=== PATIENT | male | born 1970 | race Caucasian/White ===

== ENCOUNTER 2020-06-20 14:28 | Inpatient (IN) | payer BC, SELFPAY ==
[2020-06-20] VITALS (15 sets, daily range): BP systolic 100–160; BP diastolic 66–101; PULSE 78–105; RESP 14–22; TEMP 36.3–36.8; O2SAT 95–99; BMI 32.8; BMI 33.2
--- NOTE | ~2020-06-20 | XR_ITS ---
EXAMINATION: XR chest ET placement DATE: 06/28/2020 21:43 INDICATION: Intubation. TECHNIQUE: A single frontal view of the chest was obtained. COMPARISON: Chest single view at 5:04 AM, chest CT 06/24/2020 FINDINGS: The patient is rotated to his right. There is mild atelectasis in right perihilar region. N o pleural effusion or pneumothorax. The heart size is normal. The endotracheal tube tip is 6.7 cm abo ve the addie. The nasogastric tube tip is beyond the inferior margin of the radiograph, but at least to the stomach. There are surgical clips in the neck. IMPRESSION: 1. Mild atelectasis in right perihilar region. Reviewed, dictated and finalized at location A.
--- NOTE | ~2020-06-20 | XR_ITS ---
EXAMINATION: XR chest 1V portable DATE: 07/01/2020 05:32 INDICATION: Acute respiratory failure TECHNIQUE: frontal view of the chest was obtained. COMPARISON: Chest radiograph dated 06/30/2020 FINDINGS: Endotracheal tube tip 6.8 cm above the addie. Nasogastric tube extends below the left hemidiaphragm with distal tip collimated off the study. No significant interval change in patchy bilateral airspace opacities in the perihilar and lower lung zones. No pleural effusion or pneumothorax. The cardiomediastinal silhouette is normal. IMPRESSION: 1. Persistent bilateral perihilar and lower lung zone opacities which could represent pneumonia, pulm onary edema, atelectasis or some combination thereof. Reviewed, dictated and finalized at location A. IMPRESSION: 1. Persistent bilateral perihilar and lower lung zone opacities which could rep resent pneumonia, pulmonary edema, atelectasis or some combination thereof.
--- NOTE | ~2020-06-20 | CT_ITS ---
EXAMINATION: CT soft tissue neck chest wo EXAM DATE: 06/24/2020 08:31 INDICATION: Airway obstruction . Seizure. Intubated. Respiratory failure. TECHNIQUE: Spiral CT of the neck and chest was performed without contrast. Axial, coronal and sagit michelle images of the neck were reviewed. Axial, coronal and sagittal images of the chest were reviewed. Coronal maximum intensity pixel images of chest reviewed. The dose-length product (DLP) for this e xamination was 1161.73 mGy-cm. The exposure was tailored according to patient size (auto mA exposure control), and iterative reconstruction (ASIR) was used as additional dose reduction technique. Ther e is no prior study for comparison. FINDINGS: Endotracheal tube and nasogastric tube are both in position. NECK: The thyroid gland is unremarkable. The submandibular and parotid glands are symmetric. Ther e is no cervical lymphadenopathy. There are no masses identified. Mild swelling of the right tonsil without fluid density. The airway is otherwise unremarkable. Parapharyngeal and pre-glottic fat pl anes are preserved. Mild bilateral carotid bulb arterial sclerosis. The orbits are unremarkable. Mild to moderate ethmoid and sphenoid mucoperiosteal thickening. Mild bilateral maxillary sinus muco periosteal thickening. Mastoid air cells are well aerated. There is cervical spondylosis. CHEST: There is multifocal right-sided subsegmental atelectasis, and left lower lobe subsegmental ate lectasis. There are trace bilateral pleural effusions. Tracheobronchial tree is patent. There is no mediastinal, hilar or axillary lymphadenopathy. There is no pneumothorax. There is mild cardio megaly. There is moderate coronary arterial calcification, arterial sclerosis. Upper abdomen is unr emarkable. There is mild thoracic spondylosis without osteoblastic or osteolytic lesions identified . IMPRESSION: 1. Mild right tonsillar swelling. Otherwise unremarkable airway. Tubes in position. 2. Multifocal subsegmental right-sided and left basilar atelectasis. 3. Trace pleural effusions. Reviewed, dictated and finalized at location A. IMPRESSION: 1. Mild right tonsillar swelling. Otherwise unremarkable airway. Tubes in posi tion. 2. Multifocal subsegmental right-sided and left basilar atelectasis. 3. Trace pleural effusions.
--- NOTE | ~2020-06-20 | US_ITS ---
EXAMINATION: US venous doppler UE LT DATE: 07/06/2020 07:54 INDICATION: Left upper limb swelling. TECHNIQUE: Grayscale ultrasound images without and with compression and Doppler ultrasound images of the left upper extremity veins were obtained. COMPARISON: Ultrasound 07/30/2020 FINDINGS: The visualized portions of the left internal jugular vein, subclavian vein, axillary vein, brachial v eins, basilic vein, radial vein, and ulnar vein are patent. There is thrombus in left cephalic vein. IMPRESSION: 1. No deep venous thrombosis. 2. Thrombus in left cephalic vein, which is a superficial vein. Reviewed, dictated and finalized at location A.
--- NOTE | ~2020-06-20 | XR_ITS ---
XR abdomen NG/feed tube insert INDICATION: Evaluate G-tube position. TECHNIQUE: Limited KUB perform for evaluating NG tube . COMPARISON: No prior studies for comparison. FINDINGS: NG tube tip in the stomach. Visualized bowel gas pattern is unremarkable. IMPRESSION: 1: NG tube tip in the stomach. Reviewed, dictated and finalized at location A.
--- NOTE | ~2020-06-20 | XR_ITS ---
EXAMINATION: XR chest 1V portable INDICATION: Respiratory failure TECHNIQUE: Portable AP chest at 0515 hours COMPARISON: 11/26/2020 FINDINGS: The endotracheal tube ends approximately 8.3 cm above the addie. The nasogastric tube is f ollowed as far as the stomach. Its tip is beyond the inferior margin of the radiograph. There are sta ble airspace opacities of the mid and lower lung zones. No pleural effusion or pneumothorax is identi fied. The cardiomediastinal silhouette is stable. IMPRESSION: 1. Stable airspace opacities of the mid lower lung zones, consistent with atelectasis versus pneumoni a. 2. Endotracheal tube remains approximately 8.3 cm above the addie. Reviewed, dictated and finalized at location A. IMPRESSION: 1. Stable airspace opacities of the mid lower lung zones, consistent with atele ctasis versus pneumonia. 2. Endotracheal tube remains approximately 8.3 cm above the addie.
--- NOTE | ~2020-06-20 | US_ITS ---
US venous doppler [facility] DATE: 07/03/2020 13:56 INDICATION: Deep venous thrombosis TECHNIQUE: Real-time and color flow imaging and Doppler analysis of the veins of the upper extremitie s COMPARISON: None FINDINGS: Thrombus is identified within the right cephalic vein, with lack of compression of this ves ingrid. Otherwise there is normal flow in the bilateral internal jugular, subclavian, axillary, brachial, bas ilic veins, left cephalic vein and bilateral radial and ulnar veins. IMPRESSION: Deep venous thrombosis of right cephalic vein Reviewed, dictated and finalized at Location A. Reviewed, dictated and finalized at location A.
--- NOTE | ~2020-06-20 | XR_ITS ---
EXAMINATION: XR chest 1V portable DATE: 06/29/2020 06:11 INDICATION: Endotracheal tube placement. Ventilated. TECHNIQUE: frontal view of the chest was obtained. COMPARISON: Chest radiograph dated 06/28/2020 FINDINGS: Endotracheal tube tip 6.7 cm above the addie. Nasogastric tube with proximal side-port in the body o f the stomach and distal tip collimated off the study. Airspace opacities in the right lower lung zone. Bandlike atelectasis at the medial left lung base. N o pleural effusion or pneumothorax. The cardiomediastinal silhouette is normal. IMPRESSION: 1. Endotracheal tube tip 6.7 cm above the addie. Consider advancement by 4 cm. 2. Subtle patchy airspace opacities in the right lower lung zone which could represent atelectasis an d/or pneumonia. Reviewed, dictated and finalized at location A. IMPRESSION: 1. Endotracheal tube tip 6.7 cm above the addie. Consider advancement by 4 cm. 2. Subtle patchy airspace opacities in the right lower lung zone which could re present atelectasis and/or pneumonia.
--- NOTE | ~2020-06-20 | XR_ITS ---
XR chest 1V portable DATE: 07/03/2020 05:30 INDICATION: Acute respiratory failure TECHNIQUE: Portable AP chest on 07/03/2020 at 0516 hours COMPARISON: 07/02/2020 portable AP chest at 1156 hours FINDINGS: Left upper extremity PIC catheter tip overlies superior vena cava. Normal heart size. There are patchy infiltrates in the right mid and both lower lung zones, relatively stable since 2020. IMPRESSION: No significant change since 07/02/2020 Reviewed, dictated and finalized at location A.
--- NOTE | ~2020-06-20 | XR_ITS ---
XR chest 1V portable 06/23/2020 05:34 Indication: Respiratory distress Procedure: AP portable chest Comparison: 06/20/2020 Findings: Interval development of bilateral infiltrates predominantly affecting the right perihilar a nd left lower lung zones. Endotracheal tube tip 5.5 cm above the addie. No significant effusion. No pneumothorax identified. No acute osseous abnormality. Impression: 1: Interval development of bilateral infiltrates which may represent atelectasis and/or pneumonia. Reviewed, dictated and finalized at location A. Impression: 1: Interval development of bilateral infiltrates which may represent atelectasi s and/or pneumonia.
--- NOTE | ~2020-06-20 | XR_ITS ---
EXAMINATION: XR chest ET placement EXAM DATE: 06/30/2020 09:35 INDICATION: Endotracheal tube position. TECHNIQUE: Portable AP frontal chest x-ray was obtained. Comparison is made to prior examination from 06/29/2020. FINDINGS: Endotracheal tube tip is at the addie, could be safely retracted 2 cm. There is some prog ression in the bilateral patchy airspace disease which could be atelectasis or developing pneumonia. There are no sizable pleural effusions. There is no pneumothorax suspected. Cardiomediastinal myrtle houette is normal. The bones and soft tissues are unremarkable. IMPRESSION: 1. ET tube tip at addie, could be safely retracted 2 cm. 2. Mild progression in patchy bilateral perihilar pneumonia and/or atelectasis. I discussed tube position with [employer] architect Alejandrina Mooney MD who called. Reviewed, dictated and finalized at location A. IMPRESSION: 1. ET tube tip at addie, could be safely retracted 2 cm. 2. Mild progression in patchy bilateral perihilar pneumonia and/or atelectasis . I discussed tube position with [employer] architect Alejandrina Mooney MD who called.
--- NOTE | ~2020-06-20 | XR_ITS ---
EXAMINATION: XR chest ET placement EXAM DATE: 06/30/2020 09:50 INDICATION: Readjusted endotracheal tube. TECHNIQUE: Portable AP frontal chest x-ray was obtained. Comparison is made to prior examination from earlier same date. FINDINGS: Endotracheal tube tip is 4 centimeters above the addie. Feeding tube is in position. Again there are patchy bilateral perihilar opacities, partly atelectasis but suspect patient is devel oping pneumonia or edema as well. There are no sizable pleural effusions. There is no pneumothorax suspected. Cardiomediastinal silhouette is normal. The bones and soft tissues are unremarkable. ET tube has been repositioned, otherwise no significant interval change from earlier same date. IMPRESSION: 1. Line and tube(s) in position. 2. Scattered atelectasis and suspect developing superimposed pneumonia and/or edema. Reviewed, dictated and finalized at location A.
--- NOTE | ~2020-06-20 | XR_ITS ---
XR chest 1V portable 06/24/2020 05:47 Indication: Respiratory failure Procedure: AP portable chest Comparison: Comparison to multiple prior studies sequentially, with oldest reviewed study dated 06/10. Findings: Endotracheal tube tip 6.2 cm above the addie. NG tube in the stomach. Improving right bee hilar bandlike atelectasis. There are bilateral perihilar and bibasilar infiltrates. No significant p leural effusion. No pneumothorax. No acute osseous abnormality. Impression: 1: Persistent bilateral perihilar and basilar infiltrates which may represent edema or less likely pn eumonia. 2: Improving bandlike atelectasis right midlung zone. Reviewed, dictated and finalized at location A. Impression: 1: Persistent bilateral perihilar and basilar infiltrates which may represent e alban or less likely pneumonia. 2: Improving bandlike atelectasis right midlung zone.
--- NOTE | ~2020-06-20 | XR_ITS ---
EXAMINATION: XR chest 1V portable EXAM DATE: 06/29/2020 12:21 INDICATION: Endotracheal tube repositioned. Airway obstruction. Seizure. TECHNIQUE: Portable AP frontal chest x-ray was obtained. Comparison is made to prior examination from earlier same date. FINDINGS: Endotracheal tube tip is at T3 level, 6.5 centimeters above the addie. Both lungs being ae rated but could be safely advanced 2 cm. There is a nasogastric tube seen with tip collimated off the study, but below the left hemidiaphragm. Small amount of ill-defined bibasilar atelectasis or pneumo abby. There are no sizable pleural effusions. There is no pneumothorax suspected. Cardiomediastinal myrtle houette is normal. The bones and soft tissues are unremarkable. There is no significant interval ch alena compared to prior exam. IMPRESSION: 1. ET tube could be safely advanced 2 cm. 2. Small amount of bilateral atelectasis or pneumonia. Reviewed, dictated and finalized at location A.
--- NOTE | ~2020-06-20 | XR_ITS ---
EXAMINATION: XR chest PICC line EXAM DATE: 07/02/2020 11:54 INDICATION: PICC line insertion. TECHNIQUE: Portable AP frontal chest x-ray was obtained. Comparison is made to prior examination from 07/02/2020. FINDINGS: There is a left-sided PICC line with tip projecting over the cavoatrial junction. There is patchy bilateral acute airspace disease, appearance most consistent with pneumonia but edema and ate lectasis also possible. This is unchanged. No pneumothorax or sizable pleural effusion. Cardiomediast inal silhouette is normal. IMPRESSION: PICC line in position. Patchy bilateral perihilar acute airspace disease unchanged. Reviewed, dictated and finalized at location A. IMPRESSION: PICC line in position. Patchy bilateral perihilar acute airspace d isease unchanged.
--- NOTE | ~2020-06-20 | XR_ITS ---
XR chest 1V portable DATE: 06/25/2020 05:25 INDICATION: Respiratory failure TECHNIQUE: Portable AP chest on 06/25/2020 0512 hours COMPARISON: 06/24/2020 portable AP chest 06/24/2020 CT chest FINDINGS: ET tube 6.4 cm above addie; ideal range is 2-5 cm. NG tube in stomach. Surgical clips overlie the right cervical-thoracic area. Heart size is within normal range. Mild aortic unfolding. Persistent discoid atelectasis of the right mid and lower lung and mild infiltrate or atelectasis in the left lower lung, relatively stable since 06/24/2020.. IMPRESSION: ET tube 6.4 cm above addie; ideal range is 2-5 cm Stable bilateral infiltrate and/atelectasis in the right mid and both lower lungs Reviewed, dictated and finalized at location A. IMPRESSION: ET tube 6.4 cm above addie; ideal range is 2-5 cm Stable bilateral infiltrate and/atelectasis in the right mid and both lower shaye gs
--- NOTE | ~2020-06-20 | XR_ITS ---
EXAMINATION: XR abdomen NG/feed tube insert DATE: 06/30/2020 20:09 INDICATION: Orogastric tube placement. TECHNIQUE: A semiupright view of the abdomen was obtained. COMPARISON: Abdomen radiograph 06/30/2020 FINDINGS: The lower abdomen and right lateral aspect of the abdomen are excluded. The nasogastric tub e tip is in the stomach. IMPRESSION: 1. Nasogastric tube tip in the stomach. Reviewed, dictated and finalized at location A.
--- NOTE | ~2020-06-20 | XR_ITS ---
EXAMINATION: XR abdomen/kub 1V EXAM DATE: 06/30/2020 10:40 INDICATION: Constipation. Feeding tube. TECHNIQUE: Frontal projection(s) of the abdomen for interpretation. There is no prior study for amaris tirado. FINDINGS: Feeding tube is in position. Small to moderate amount of colonic gas. No small bowel dilat ion. Mild lumbar dextroscoliosis. There is no organomegaly. IMPRESSION: Feeding tube in position. Reviewed, dictated and finalized at location A. IMPRESSION: Feeding tube in position.
--- NOTE | ~2020-06-20 | XR_ITS ---
EXAMINATION: XR chest 1V portable DATE: 07/02/2020 05:35 INDICATION: Acute respiratory failure TECHNIQUE: frontal view of the chest was obtained. COMPARISON: Chest radiograph dated 06/30/2020 FINDINGS: No significant interval change in patchy airspace opacities in the right perihilar and infrahilar reg ions. Minimal residual opacities at the left lower lung zone. No pleural effusion or pneumothorax. Th e cardiomediastinal silhouette is normal. IMPRESSION: 1. Persistent opacities in the right perihilar and infrahilar regions to lesser degree left lung base which could represent pneumonia, pulmonary edema, atelectasis or some combination thereof. Reviewed, dictated and finalized at location A. IMPRESSION: 1. Persistent opacities in the right perihilar and infrahilar regions to lesser degree left lung base which could represent pneumonia, pulmonary edema, atelec tasis or some combination thereof.
--- NOTE | ~2020-06-20 | CT_ITS ---
EXAMINATION: CT brain wo con DATE: 06/20/2020 15:05 INDICATION: Seizure TECHNIQUE: Computed tomography (CT) of the head was performed without intravenous contrast. The mA wa s adjusted according to patient size. Iterative reconstruction technique was employed. Exam dose: 68 1.00 mGy-cm total exam DLP. COMPARISON: 09/07/2012 CT brain FINDINGS: No intracranial mass lesion or hemorrhage or cerebrovascular accident is evident. No midlin e shift or mass effect effect. Normal ventricular size. No subdural or epidural hematoma. There is greater than expected volume loss of the cerebral hemispheres and cerebellum for age. No fra cture or bone destruction of the cranial vault. There is patchy soft tissue opacification of ethmoid air cells bilaterally and some mucoperiosteal th ickening of the right sphenoid sinus. Minimal mucoperiosteal thickening left sphenoid and bilateral f rontal sinuses. The mastoid air cells are normally developed and aerated. IMPRESSION: Greater than expected cerebral and cerebellar volume loss for age No acute intracranial finding or significant change since 09/07/2014 Reviewed, dictated and finalized at [facility]. Reviewed, dictated and finalized at location A.
--- NOTE | ~2020-06-20 | XR_ITS ---
XR chest 1V portable DATE: 06/20/2020 15:12 INDICATION: Seizure TECHNIQUE: Portable AP chest on 06/20/2020 at 1508 hours COMPARISON: 06/10/2017 PA and lateral chest FINDINGS: Normal heart size. No hilar or mediastinal enlargement. No pulmonary infiltrate or consolidation, pleural effusion or pulmonary vascular congestion or pneumo thorax. IMPRESSION: No active cardiopulmonary disease Reviewed, dictated and finalized at location A.
--- NOTE | ~2020-06-20 | XR_ITS ---
EXAMINATION: XR chest 1V portable DATE: 06/28/2020 05:17 INDICATION: Respiratory failure TECHNIQUE: frontal view of the chest was obtained. COMPARISON: Chest radiograph dated 06/27/2020 FINDINGS: Endotracheal tube tip 5.2 cm above the addie. Nasogastric tube tip in proximal side port in the body of the stomach. A few surgical clips at the right base of the neck. Unchanged elevation of the right hemidiaphragm. Mild linear discoid atelectasis/scarring in the bilat eral lower lung zones. No pulmonary edema, pleural effusion or pneumothorax. The cardiomediastinal si lhouette is normal. IMPRESSION: 1. Mild bibasilar atelectasis versus less likely pneumonia. Reviewed, dictated and finalized at location A.
--- NOTE | ~2020-06-20 | XR_ITS ---
EXAMINATION: XR chest 1V portable INDICATION: Respiratory failure TECHNIQUE: Portable AP chest at 0508 hours COMPARISON: 06/25/2020 FINDINGS: The endotracheal tube ends approximately 7.2 cm above the addie. The nasogastric tube is f ollowed as far as the stomach. Its tip is beyond the inferior margin of the radiograph. Airspace opac ities of the right lung base persist but have improved. There are stable airspace opacities in the mi dlung zones and left lung base. There is no pleural effusion or pneumothorax. The cardiomediastinal s ilhouette is stable. IMPRESSION: 1. Airspace opacities of the mid and lower lung zones with improvement in the right lung base, consis tent with atelectasis versus pneumonia. Reviewed, dictated and finalized at location A. IMPRESSION: 1. Airspace opacities of the mid and lower lung zones with improvement in the r ight lung base, consistent with atelectasis versus pneumonia.
--- NOTE | 2020-06-20 14:51 | ECG_ITS ---
Measurements Intervals [place] Rate: 100 P: ID: 0 QRS: -57 QRSD: 149 T: 25 QT: 381 QTc: 493 Interpretive Statements SINUS TACHYCARDIA RIGHT BUNDLE BRANCH BLOCK LEFT ANTERIOR FASCICULAR BLOCK BASELINE ARTIFACT- I, II, III, AVR, AVL, AVF Electronically Signed On 06-20-2020 16:53:40 CDT by Rosalio Millan D.O.
[2020-06-20] MEDS: LORazepam INJ (*CRX) 2 MG/ML VIAL 1 MG IV PUSH ×3 (14:54→22:11)
--- NOTE | 2020-06-20 14:56 | ED.GENADULT ---
HPI - General Adult General Chief complaint: Seizure Stated complaint: sz Time Seen by Provider: 06/20/20 14:37 Source: patient, EMS and RN notes reviewed Mode of arrival: EMS Limitations: no limitations History of Present Illness HPI narrative: Patient is 50 years old white male was having a stressful phone conversation suddenly started making weird noises, stuttering, stiffening all over and shaking with foaming from the mouth lasted less than 1 minute. Patient back to his normal mental status in 2 minutes. Patient remembers the event and the details of it. Patient denies similar symptoms. The patient is reports too much stress lately. Patient denies any fever, chills, nausea, vomiting, chest pain, shortness of breath, back pain, headache. Last alcohol intake was 4 days ago. Related Data Home Medications Medication Instructions Recorded Confirmed rosuvastatin 40 mg PO DAILY 06/20/20 venlafaxine 150 mg PO DAILY 06/20/20 Allergies Allergy/AdvReac Type Severity Reaction Status Date / Time No Known Allergies Allergy Verified 03/16/20 09:33 [facility] Family History Family History Other Cerebrovascular accident Diabetes mellitus Family history of cardiovascular disease Family history of hypercholesterolemia Hypertension Social History Social History Smoking status: Never smoker Alcohol intake: current Exam Narrative: Exam Narrative: General appearance: Well-developed, well-nourished, shaky Skin: Normal color, diaphoretic Head: Normocephalic, nontraumatic Eyes: Clear conjunctiva ENT: Oropharynx normal, ears normal, nose normal Neck: Supple, nontender Chest and respiratory: Airway patent, no respiratory distress, no accessory muscle use Heart: Regular rate/rhythm Abdomen: Soft, nontender, no organomegaly, quiet bowel sounds Vascular: Normal peripheral pulses, normal capillary refill. Musculoskeletal: Normal range of motion, nontender back Neurologic: Alert and oriented ?3, [employer] is normal as tested, no gross motor deficit Course Course Emergency Course: Stable Consultations Consultation #1: Dr. Blackburn Date: 06/20/20 Time: 15:30 Vital Signs Vital signs: Vital Signs Temperature 36.8 C 06/20/20 14:31 Pulse Rate 104 H 06/20/20 14:31 Respiratory Rate 18 06/20/20 14:31 Blood Pressure 160/101 H 06/20/20 14:31 Pulse Oximetry 96 06/20/20 14:31 Temperature 36.8 C 06/20/20 14:31 Pulse Rate 78 06/20/20 16:15 Respiratory Rate 18 06/20/20 16:15 Blood Pressure 133/94 H 06/20/20 16:15 Pulse Oximetry 99 06/20/20 16:15 Medical Decision Making MDM Narrative Medical decision making narrative: Seizure, pseudoseizure, alcohol withdrawal seizure is my concern. Labs, CT head, urine drug screen, UA, ordered. Further plan to follow Differential Diagnosis Differential Diagnosis: Seizure, stress-induced pseudoseizure Vital Signs Vital Signs: Vital Signs Temperature 36.8 C 06/20/20 14:31 Pulse Rate 104 H 06/20/20 14:31 Respiratory Rate 18 06/20/20 14:31 Blood Pressure 160/101 H 06/20/20 14:31 Pulse Oximetry 96 06/20/20 14:31 Temperature 36.8 C 06/20/20 14:31 Pulse Rate 78 06/20/20 16:15 Respiratory Rate 18 06/20/20 16:15 Blood Pressure 133/94 H 06/20/20 16:15 Pulse Oximetry 99 06/20/20 16:15 Lab Data Result diagrams: 06/20/20 14:56 06/20/20 14:56 Labs: Lab Results 06/20/20 06/20/20 06/20/20 Range/Units 14:56 14:56 14:56 WBC 5.2 (4.5-10.0) K/mm3 RBC 4.75 (4.6-6.20) M/mm3 Hgb 15.9 (14.0-18.0) g/dL Hct
[2020-06-20 15:06] LABS: Basophils Absolute Auto 0.1 K/mm3 (0.0-0.1); Basophils Percent Auto 1.2 % (0.2-1.2); Eosinophils Absolute Auto 0.2 K/mm3 (0-0.3); Eosinophils Percent Auto 3.5 % (0-4.4); Hematocrit 44.6 % (42.0-52.0); Hemoglobin 15.9 g/dL (14.0-18.0); Immature Granulocyte Absolute 0.02 K/mm3 (0.00-0.031); Immature Granulocyte Percent A 0.4 % (0-0.5); Lymphocytes Percent Auto 15.4 % (18.3-44.2); Mean Corpuscular HGB Conc 35.7 g/dl (32-36); Mean Corpuscular Hemoglobin 33.5 pg (26-34); Mean Corpuscular Volume 93.9 fl (80-100); Mean Platelet Volume 9.7 fl (7.4-10.4); Monocytes Absolute Auto 0.7 K/mm3 (0.1-0.6); Monocytes Percent Auto 12.9 % (2.6-8.5); Neutrophils Absolute Auto 3.5 K/mm3 (1.3-6.7); Neutrophils Percent Auto 66.6 % (45.5-73.1); Platelet Count Result 150 k/mm3 (150-375); Red Blood Count 4.75 M/mm3 (4.6-6.20); Red Cell Distribution Width 12.3 % (11.5-14.5); White Blood Count 5.2 K/mm3 (4.5-10.0)
[2020-06-20 15:20] LABS: Alanine Aminotransferase 122 U/L (4-50); Albumin Level 4.5 g/dL (3.5-5.1); Alkaline Phosphatase 67 U/L (38-126); Anion Gap 11 mmol/L (8-16); Aspartate Amino Transferase 151 U/L (17-59); Bilirubin,Total 0.8 mg/dL (0.2-1.3); Blood Urea Nitrogen 11 mg/dL (9-20); Calcium 9.7 mg/dL (8.4-10.2); Carbon Dioxide 24 mmol/L (22-30); Chloride 98 mmol/L (98-107); Estimated CRCL calculation 125 ml/min; Estimated Glomerular Filt Rate > 60; Glucose 132 mg/dL (75-110); Potassium 3.7 mmol/L (3.4-5.0); Sodium 133 mmol/L (137-145)
[2020-06-20 15:49] LABS: Add Urine Microscopic? YES; Appearance Urine Clear (Clear); Bacteria Urine Trace /hpf; Bilirubin Urine Negative (Negative); Blood Urine Negative (Negative); Color Urine Yellow (Yellow); Glucose Urine UA Negative (Negative); Ketones Urine Negative (Negative); Leukocyte Esterase Ur Negative LEU/UL (Negative); Mucus Urine Rare /lpf; Nitrate Urine Negative (Negative); Protein Urine 1+ mg/dL (Negative); RBC Urine 0-2 /hpf (0-2); Specific Grav Ur 1.012 (1.001-1.035); Urobilinogen Urine Negative mg/dL (<2.0); WBC Urine 0-3 /hpf
[2020-06-20 16:12] LABS: Amphetamine Screen Urine Negative (Negative); Barbiturate Screen Urine Negative (Negative); Benzodiazepines Screen Urine Positive (Negative); Cannabinoid Screen Urine Negative (Negative); Cocaine Screen Urine Negative (Negative); Methadone Screen Urine Negative (Negative); Opiate Screen Urine Negative (Negative); Phencyclidine Screen Urine Negative (Negative)
--- NOTE | 2020-06-20 18:05 | ADMGEN ---
This patient, Del Souza, was admitted to Medical Room 261-01. Patient/family oriented to hospital policies and general routines including ID bracelet, bed and alarms, visiting hours, pain management, procedures, bathroom and other care routines, personal items, smoking policy, room service/diet, and visiting hours. Information on how to activate the Rapid Response Team has been discussed. Patient/Family are encouraged to report perceived risks to care and to ask questions if they do not understand what they are told or what they should do.
[2020-06-20] MEDS: THIAMINE HCL INJ 100 MG, FOLIC ACID INJ 1 MG, MULTIVITAMINS-12 INJ VIAL 1 5 ML, MULTIVI... IV CONT (18:44)
[2020-06-20] MEDS: chlordiazePOXIDE (*CRX) 25 MG CAPSULE 50 MG PO (18:45)
[2020-06-20 19:03] LABS: INR 0.9; Partial Thromboplastin Time 22.7 SECONDS (22.3-36.8); Prothrombin Time 12.5 Seconds (11.1-14.7)
[2020-06-20 19:05] LABS: Creatine Kinase 510 U/L (55-170); Magnesium 1.8 mg/dL (1.6-2.3)
--- NOTE | 2020-06-20 19:30 | PM.IMHP ---
H&P: HPI History of Present Illness Date/Time: 06/20/20 19:30 Chief Complaint: Seizure activity. Narrative: This is a 50-year-old male with hypertension, hyperlipidemia, untreated sleep apnea, anxiety, and history of alcohol abuse who presented to the emergency department earlier today via EMS from home for evaluation of seizure-like activity. Not long prior to arrival he was sitting on the couch having a phone conversation when, according to his , he apparently made a very loud, odd sounding noise. Shortly thereafter he slumped to the side, became very tense and was shaking, diaphoretic, and unresponsive. This lasted upwards of 3 minutes and he was confused when he came to. It is noted that he takes benzodiazepines as needed for anxiety, but he denies that he takes these regularly but mentions he has been taking them almost daily recently due to increase in stress and personal and professional life ( recently attempted suicide, he is currently running for office). He has had problems with alcohol off and on for 17 years but he and his for both trying to quit drinking and he is now down to perhaps 4 to 5 beers a day. His last drink was sometime on evening. It is noted that he has previously had an alcohol withdrawal seizure. He has not been sleeping well due to stress. No history of epilepsy. Currently has no specific complaints however is tremulous. He denies headache, sweats, hallucinations, chest pain, shortness of breath, nausea, and vomiting. Review of Systems Review of Systems: Narrative: Twelve systems were reviewed with pertinent positives and negatives as per HPI. No fever, chills, or sweats. No recent cold or flu symptoms. He denies exposure to those positive for COVID-19. He has not use a CPAP for quite some time as he never got used to the mask. He does think that he should probably try using it again as he is frequently tired and does not sleep well at nighttime. No nausea or vomiting. Occasional diarrhea. Denies dysuria. He has been having issues with his back and radicular pain down his left leg. An MRI was ordered in March 2020 however insurance declined that and he is supposed to do physical therapy however has not yet started. [facility] Past Medical History Medical History (Updated 06/20/20 @ 21:47 by Poppy Nelson PA-C) Alcohol abuse Anxiety Depression Erectile dysfunction Hypertension Mixed hyperlipidemia Obstructive sleep apnea Untreated, patient cannot tolerate mask. Surgical History Surgical History (Updated 06/20/20 @ 21:43 by Poppy Nelson PA-C) History of orthopedic surgery ORIF right hand fracture with hardware. ORIF left ankle fracture. Family History Family History Other Cerebrovascular accident Diabetes mellitus Family history of cardiovascular disease Family history of hypercholesterolemia Hypertension Social History Social History (Updated 06/20/20 @ 21:45 by Poppy Nelson PA-C) Social History: Surrogate decision maker: Peri Souza, . Code status: Full code. Smoking status: Never smoker Smokeless tobacco user: chewing tobacco Alcohol intake: current Drinks per week: 35 Alcohol use details: Consumes were 5 beers a day. Previously 1/5 vodka a day. Additional living arrangements comments: Resides in [place] with his . 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 Gender identity (if verbalized by the patient): Male Sexual Orientation (if Verbalized by the Patient): Straight or Heterosexual Spiritual care concerns: No Meds Home Medications and Allergies Home Medications Medication Instructions Recorded Confirmed Type diltiazem HCl 240 mg 240 mg .ROUTE .COMPLEX #90 cap 03/02/20 06/20/20 Rx capsule,extended release 24 hr alprazolam 0.5 mg PO TID PRN 06/20/20 06/20/20 History lisinopril 40 mg PO BID 06/20/20
[2020-06-20 20:04] LABS: Hepatitis B Surface Antigen Negative (Negative)
[2020-06-20 20:10] LABS: HAV RESULT Negative (Negative); Hepatitis B Core IgM Result Negative (Negative)
[2020-06-20 20:20] LABS: Folic Acid 19.9 ng/mL (2.76->20)
[2020-06-20 20:22] LABS: Hepatitis C Virus Antibody Negative (Negative)
[2020-06-21] VITALS (10 sets, daily range): BP systolic 114–136; BP diastolic 65–86; PULSE 70–97; RESP 16–20; TEMP 36.2–36.6; O2SAT 97–100
[2020-06-21] MEDS: chlordiazePOXIDE (*CRX) 25 MG CAPSULE 50 MG PO ×4 (05:05→23:54)
[2020-06-21 05:38] LABS: Hemoglobin 14.1 g/dL (14.0-18.0); Mean Corpuscular HGB Conc 35.3 g/dl (32-36); Mean Corpuscular Volume 93.7 fl (80-100); Mean Platelet Volume 9.6 fl (7.4-10.4); Platelet Count Result 147 k/mm3 (150-375); Red Blood Count 4.27 M/mm3 (4.6-6.20); Red Cell Distribution Width 12.1 % (11.5-14.5); White Blood Count 5.1 K/mm3 (4.5-10.0)
[2020-06-21 05:55] LABS: Alanine Aminotransferase 118 U/L (4-50); Alkaline Phosphatase 53 U/L (38-126); Anion Gap 7 mmol/L (8-16); Aspartate Amino Transferase 132 U/L (17-59); Bilirubin,Total 0.7 mg/dL (0.2-1.3); Blood Urea Nitrogen 10 mg/dL (9-20); Calcium 8.7 mg/dL (8.4-10.2); Carbon Dioxide 26 mmol/L (22-30); Chloride 100 mmol/L (98-107); Creatine Kinase 841 U/L (55-170); Estimated CRCL calculation 143 ml/min; Estimated Glomerular Filt Rate > 60; Glucose 101 mg/dL (75-110); Magnesium 2.2 mg/dL (1.6-2.3); Potassium 3.4 mmol/L (3.4-5.0); Sodium 133 mmol/L (137-145)
[2020-06-21 07:36] LABS: Hepatitis B Surface Antigen Negative (Negative)
[2020-06-21 07:42] LABS: HAV RESULT Negative (Negative); Hepatitis B Core IgM Result Negative (Negative)
[2020-06-21 07:53] LABS: Hepatitis C Virus Antibody Negative (Negative)
[2020-06-21 08:19] LABS: Free T4 Free Thyroxine Reflex 1.13 ng/dL (0.78-2.19)
[2020-06-21] MEDS: VENLAFAXINE HCL XR 75 MG CAP.ER.24H 150 MG PO (09:00)
[2020-06-21] MEDS: FOLIC ACID 1 MG TABLET PO (09:00)
[2020-06-21] MEDS: THIAMINE HCL 100 MG TABLET PO (09:01)
[2020-06-21] MEDS: ENOXAPARIN 40 MG/0.4 ML SYRINGE SUB-Q (09:01)
[2020-06-21] MEDS: lisinopriL 20 MG TABLET 40 MG PO ×2 (09:01→16:55)
[2020-06-21] MEDS: THERAPEUTIC MULTIVITAMINS/MINERALS TAB (*BKC) 1 TABLET PO (09:01)
[2020-06-21 09:35] LABS: Total Triiodothyronine (T3) 1.47 NG/ML (0.97-1.69)
--- NOTE | 2020-06-21 09:43 | P.NEURO_ITS ---
Neurology EEG Report General Information Date of Study: 06/21/20 TEST eeg DIAGNOSIS Seizures CONDITION OF RECORDING awake and drowsy with constant eye movements and sweat artifacts noted thr oughout the tracing EEG NUMBER [id number] CLINICAL HISTORY patient reported he had a seizure yesterday with no previous history of seizure it started by him not being able to talk then went rigid and fell back and was shaking and foaming at the mouth EEG DESCRIPTION basic resting occipital frequency consists of small amount of low to medium voltage 9 to 11 hertz per 2nd alpha admixed with low-voltage 15 to 21 hertz per 2nd beta. During drowsiness low-voltage beta activity seen bilaterally. Bilateral symmetrical sleep activity seen during sleep.hyperventilation not done. Photic stimulation not done. Non paroxysmal. Nonfocal. Nonlateralizing. IMPRESSION No significant abnormalities noted
--- NOTE | 2020-06-21 09:49 | WPDNEURCNPN ---
Assessment and Plan Assessment and plan (1) Alcohol withdrawal seizure: Code(s): F10.239 - Alcohol dependence with withdrawal, unspecified; R56.9 - Unspecified convulsions Status: Acute (2) Alcohol abuse: Code(s): F10.10 - Alcohol abuse, uncomplicated Status: Acute Additional Plan alcohol related seizure, will obtain the EEG rule out the possibility of underlying seizure disorder as well because the history of chronic alcoholism, the CT head and documented normal in the meantime he will be observed for the alcohol withdrawal and impending delirium. Consult date: 06/21/20 Time Seen: 09:30 HPI: Del Souza is a 50 year old male Admitted to the hospital for the complaints of seizure in addition to the ongoing history of 1. Hypertension 2. Hyperlipidemia 3. Sleep apnea and 4. Alcohol abuse as per the information available not long prior to arrival he was sitting on the couch having a phone conversation when according to his he apparently made very loud noise, slumped to the side became very tense and was shaking according to his . The whole episode lasted for about 3 minutes subsequently he was confused patient has been taking benzodiazepine on p.r.n. basis for the anxiety almost on daily basis due to increased stress and personal professional who live that is his recently attempted suicide he has had problems with alcohol off and on for the last 17 years. In the past she has ongoing history of as mentioned before alcohol abuse with anxiety and depression, hypertension, mixed hyperlipidemia, and obstructive sleep apnea, he takes at least 35 drinks per week consumed 5 beers a day and previously 1/5 of vodka a day, evaluation up until now documented normal CBC with hemoglobin 14.1 WBC 5.1 platelet count of 147, normal basic metabolic panel elevated hepatic enzymes and also TSH of 4.8, CT of head revealed no evidence of bleed or major stroke, chest x-ray negative Review of Systems Review of Systems: All systems reviewed & are unremarkable except as noted in HPI and below PMFSH Past Medical History Medical History Alcohol abuse Anxiety Depression Erectile dysfunction Hypertension Mixed hyperlipidemia Obstructive sleep apnea Untreated, patient cannot tolerate mask. Surgical History Surgical History History of orthopedic surgery ORIF right hand fracture with hardware. ORIF left ankle fracture. Family History Family History Other Cerebrovascular accident Diabetes mellitus Family history of cardiovascular disease Family history of hypercholesterolemia Hypertension Social History Social History Social History: Surrogate decision maker: Peri Souza, . Code status: Full code. Smoking status: Never smoker Smokeless tobacco user: chewing tobacco Alcohol intake: current Drinks per week: 35 Alcohol use details: Consumes were 5 beers a day. Previously 1/5 vodka a day. Additional living arrangements comments: Resides in [place] with his . 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 Gender identity (if verbalized by the patient): Male Sexual Orientation (if Verbalized by the Patient): Straight or Heterosexual Spiritual care concerns: No Meds Home Medications and Allergies Home Medications Medication Instructions Recorded Confirmed Type diltiazem HCl 240 mg 240 mg .ROUTE .COMPLEX #90 cap 03/02/20 06/20/20 Rx capsule,extended release 24 hr alprazolam 0.5 mg PO TID PRN 06/20/20 06/20/20 History lisinopril 40 mg PO BID 06/20/20 06/20/20 History rosuvastatin 40 mg PO DAILY 06/20/20 06/20/20 History venlafaxine 150 mg PO DAILY 06/20/20 06/20/20 History Allergies Allergy/AdvReac Type Severity Reaction Status Date / Time No
--- NOTE | 2020-06-21 15:09 | PM.IMPN ---
Progress Note: A&P Assessment and Plan (1) Alcohol withdrawal seizure: Code(s): F10.239 - Alcohol dependence with withdrawal, unspecified; R56.9 - Unspecified convulsions Status: Acute Assessment and Plan: Patient has not had anything to drink since evening, timeline fits with alcohol withdrawal seizure. Initiate seizure precautions. He has been started on scheduled Librium with Ativan available as needed. 06/21/20 15:09 Patient is a 50-year-old male with history of alcohol abuse and his last drink for on June 17, however on SundayJune 20, while sitting on the couch talking on the phone and his her loud noise and patient was having seizure-like activity lasting 3 minutes and patient was brought to the emergency department for further evaluate, his alcohol level was 0, patient is on benzodiazepine, while in the hospital patient has not any episode, patient was seen by Neurology and had a EEG which was normal, patient is started on Librium 50 mg every 6 hours and Ativan as needed, will continue to monitor the patient and check electrolytes and supplement, if remains clinically stable may discharge the patient home tomorrow (2) Elevated LFTs: Code(s): R79.89 - Other specified abnormal findings of blood chemistry Status: Acute Assessment and Plan: Etiology not clear, but may be multifactorial. He was recently started back on a statin, drinks alcohol daily, and had a seizure today with perhaps mild rhabdomyolysis. Repeat LFTs in a.m.. (3) Elevated creatine kinase: Code(s): R74.8 - Abnormal levels of other serum enzymes Status: Acute Assessment and Plan: Moderately elevated but not 5 times the upper limit of normal. Secondary to seizure activity. Repeat CK in a.m.. (4) Hypertension: Code(s): I10 - Essential (primary) hypertension Status: Acute Assessment and Plan: Blood pressures were reviewed and they are pretty well controlled. Continue antihypertensives. (5) Mixed hyperlipidemia: Code(s): E78.2 - Mixed hyperlipidemia Status: Acute Assessment and Plan: Statin on hold at this time given elevated LFTs. (6) Anxiety: Code(s): F41.9 - Anxiety disorder, unspecified Status: Acute Assessment and Plan: Patient has had increase in stress recently as per HPI. Continue venlafaxine. Hold alprazolam while getting scheduled Librium. (7) Alcohol abuse: Code(s): F10.10 - Alcohol abuse, uncomplicated Status: Acute Assessment and Plan: Initiate CIWA protocol. Begin thiamine, folic acid, and multivitamin supplementation. He and his for both working on quitting drinking and they were encouraged to continue doing so. Subjective Date/time seen: 06/21/20 15:09 Patient is a 50-year-old male with history of alcohol abuse and his last drink for on June 17, however on SundayJune 20, while sitting on the couch talking on the phone and his her loud noise and patient was having seizure-like activity lasting 3 minutes and patient was brought to the emergency department for further evaluate, his alcohol level was 0, patient is on benzodiazepine, while in the hospital patient has not any episode, patient was seen by Neurology and had a EEG which was normal, patient is started on Librium 50 mg every 6 hours and Ativan as needed, will continue to monitor the patient and check electrolytes and supplement, if remains clinically stable may discharge the patient home tomorrow Review of Systems Review of Systems: All systems reviewed & are unremarkable except as noted in HPI and below Exam Narrative: Exam Narrative: Patient is comfortable, NAD HEENT: eyes are clear and none icteric LUNGS:CTA HEART: RR S1S2 ABD: BS+, Soft and nontender Lower extremities: no edema SKIN: nonjaundiced Neuro: grossly intact. Objective Data Vital Signs Vital Signs: Vital Si
[2020-06-22] VITALS (33 sets, daily range): BP systolic 113–137; BP diastolic 80–109; PULSE 74–104; RESP 16–35; TEMP 36.3–36.9; O2SAT 94–100; BMI 33.2
[2020-06-22] MEDS: LORazepam INJ (*CRX) 2 MG/ML VIAL 1 MG IV PUSH ×3 (00:28→08:59)
[2020-06-22 05:24] LABS: Hematocrit 40.2 % (42.0-52.0); Hemoglobin 13.8 g/dL (14.0-18.0); Mean Corpuscular HGB Conc 34.3 g/dl (32-36); Mean Corpuscular Hemoglobin 33.3 pg (26-34); Mean Corpuscular Volume 97.1 fl (80-100); Mean Platelet Volume 9.4 fl (7.4-10.4); Platelet Count Result 146 k/mm3 (150-375); Red Blood Count 4.14 M/mm3 (4.6-6.20); Red Cell Distribution Width 12.4 % (11.5-14.5); White Blood Count 5.4 K/mm3 (4.5-10.0)
[2020-06-22 05:57] LABS: Alanine Aminotransferase 114 U/L (4-50); Albumin Level 3.9 g/dL (3.5-5.1); Alkaline Phosphatase 53 U/L (38-126); Anion Gap 9 mmol/L (8-16); Aspartate Amino Transferase 97 U/L (17-59); Blood Urea Nitrogen 11 mg/dL (9-20); Calcium 8.5 mg/dL (8.4-10.2); Carbon Dioxide 25 mmol/L (22-30); Chloride 99 mmol/L (98-107); Creatine Kinase 609 U/L (55-170); Estimated CRCL calculation 143 ml/min; Estimated Glomerular Filt Rate > 60; Glucose 89 mg/dL (75-110); Magnesium 2.1 mg/dL (1.6-2.3); Potassium 3.4 mmol/L (3.4-5.0); Sodium 133 mmol/L (137-145)
[2020-06-22] MEDS: chlordiazePOXIDE (*CRX) 25 MG CAPSULE 50 MG PO (06:06)
[2020-06-22] MEDS: LORazepam INJ (*CRX) 2 MG/ML VIAL IV PUSH (06:21)
--- NOTE | 2020-06-22 06:31 | PCDIET ---
0620 patient has become very agitated and suspicous with care. wants to leave, unable to calm patient. dr. dan informed and orders recieved for additional 2mg of ativan. patient on phone speaking with father and gave this nurse permission to speak to father. informed of alcohol withdrawl symptoms. father attempting to calm patient.
--- NOTE | 2020-06-22 06:33 | PC.NURSE ---
0620 patient has become very agitated and suspicous. pacing in room. wants to leave. talking to his father on the phone who is trying to calm patient. permission given to speak to father and informed of alcohol withdrawl symptoms. dr. dan informed of symptoms and orders recieved for additional 2mg of ativan ivp .
[2020-06-22] MEDS: lisinopriL 20 MG TABLET 40 MG PO (08:14)
[2020-06-22] MEDS: THIAMINE HCL 100 MG TABLET PO (08:14)
[2020-06-22] MEDS: ENOXAPARIN 40 MG/0.4 ML SYRINGE SUB-Q (08:14)
[2020-06-22] MEDS: THERAPEUTIC MULTIVITAMINS/MINERALS TAB (*BKC) 1 TABLET PO (08:14)
[2020-06-22] MEDS: VENLAFAXINE HCL XR 75 MG CAP.ER.24H 150 MG PO (08:14)
[2020-06-22] MEDS: FOLIC ACID 1 MG TABLET PO (08:14)
--- NOTE | 2020-06-22 08:14 | PC.NURSE ---
This patient, Del Souza, was transferred to ICU 2 on 06/22/20 at 0810. Personal belongings sent with patient. Report given to Sidney . Appropriate documentation sent with patient.
--- NOTE | 2020-06-22 08:30 | PC.NURSE ---
Attempted to call patients family to update them on patient transfer. is currently unavailable, unable to update.
[2020-06-22] MEDS: LORazepam INJ (*CRX) 2 MG/ML VIAL 4 MG IV PUSH ×9 (10:30→12:35)
--- NOTE | 2020-06-22 11:21 | WPDNEURCNPN ---
Assessment and Plan Additional Plan stable treatment is being continued as such Consult date: 06/22/20 Time Seen: 09:00 HPI: Del Souza is a 50 year old male with alcohol withdrawal seizures in addition to the history of alcohol dependence and documented negative CT scan of the head , CPK is coming down, receiving supplemental thiamine, folic acid, and antihypertensive medication as well along with diltiazem, remains afebrile and normotensive Review of Systems Review of Systems: All systems reviewed & are unremarkable except as noted in HPI and below PMFSH Past Medical History Medical History Alcohol abuse Anxiety Depression Erectile dysfunction Hypertension Mixed hyperlipidemia Obstructive sleep apnea Untreated, patient cannot tolerate mask. Surgical History Surgical History History of orthopedic surgery ORIF right hand fracture with hardware. ORIF left ankle fracture. Family History Family History Other Cerebrovascular accident Diabetes mellitus Family history of cardiovascular disease Family history of hypercholesterolemia Hypertension Social History Social History Social History: Surrogate decision maker: Peri Souza, . Code status: Full code. Smoking status: Never smoker Smokeless tobacco user: chewing tobacco Alcohol intake: current Drinks per week: 35 Alcohol use details: Consumes were 5 beers a day. Previously 1/5 vodka a day. Additional living arrangements comments: Resides in [place] with his . 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 Gender identity (if verbalized by the patient): Male Sexual Orientation (if Verbalized by the Patient): Straight or Heterosexual Spiritual care concerns: No Meds Home Medications and Allergies Home Medications Medication Instructions Recorded Confirmed Type diltiazem HCl 240 mg 240 mg .ROUTE .COMPLEX #90 cap 03/02/20 06/20/20 Rx capsule,extended release 24 hr alprazolam 0.5 mg PO TID PRN 06/20/20 06/20/20 History lisinopril 40 mg PO BID 06/20/20 06/20/20 History rosuvastatin 40 mg PO DAILY 06/20/20 06/20/20 History venlafaxine 150 mg PO DAILY 06/20/20 06/20/20 History Allergies Allergy/AdvReac Type Severity Reaction Status Date / Time No Known Allergies Allergy Verified 06/20/20 18:53 Vital Signs Vital Signs - 24 hr 06/21/20 12:00 06/21/20 15:24 06/21/20 16:00 Temperature 36.4 C L Pulse Rate 97 96 Pulse Rate [Apical] 97 Respiratory Rate 16 Blood Pressure 128/80 Pulse Oximetry 100 06/21/20 20:00 06/21/20 22:00 06/22/20 00:00 Temperature 36.2 C L Pulse Rate 90 94 87 Pulse Rate [Apical] 90 Respiratory Rate 20 Blood Pressure 136/86 Pulse Oximetry 98 06/22/20 04:00 06/22/20 06:00 06/22/20 08:00 Temperature 36.3 C L Pulse Rate 79 79 81 Pulse Rate [Apical] Respiratory Rate 18 35 H Blood Pressure 134/84 Pulse Oximetry 97 95 06/22/20 08:22 06/22/20 08:30 06/22/20 10:00 Temperature 36.8 C Pulse Rate 75 82 87 Pulse Rate [Apical] 78 Respiratory Rate 35 H 19 Blood Pressure 129/89 123/82 Pulse Oximetry 94 95 Exam Const: General: comfortable and no acute distress Orientation/consciousness: oriented to person HENMT: Ears: hearing grossly normal bilaterally General nose exam: Normal external nose present Neck: Neck: full ROM Resp: Effort & Inspection: normal respiratory effort GI: Auscultation: normal bowel sounds Neuro: General: oriented to person, moves all extremities and CN's II-XI intact bilaterally Cognition (Neuro): abnormal cognition Gait exam (Neuro): Unable to assess gait Deep tendon reflexes (DTR's): Right triceps reflex intensity grade: 1+, Left triceps reflex intensity grade: 1+, Rt Biceps
--- NOTE | 2020-06-22 12:15 | WPDCN ---
Assessment and Plan Assessment and plan (1) Respiratory failure, acute: Qualifiers: Respiratory failure complication: hypoxia Qualified Code(s): J96.01 - Acute respiratory failure with hypoxia Code(s): J96.00 - Acute respiratory failure, unspecified whether with hypoxia or hypercapnia Status: Acute Assessment and Plan: Del had very difficult intubation for airway protection due to ETOH withdrawal. This required attempted cricothyroidotomy before anesthesia was able to successfully intubate. He is now stable but with an open neck wound. This will require neck exploration, irrigation and cleaning to address hemostasis, examine the trachea and prevent wound contamination. Will take him to OR [facility]. Sajan Guevara M.D. Otolaryngology HPI Data of Consult Date/Time: 06/22/20 12:15 Requesting Physician: Spike Downs MD Primary Care Provider: Rodriguez Marquez DO Consult Narrative Reason for consult: Airway Narrative: Del Souza is a 50 year old male with hx of etoh abuse and withdrawal, needing intubation for airway protection. Had several failed attempts at intubation in the ICU and was desaturating rapidly prompting attempted cricothyroidotomy. The ICU physician feels he did get into the trachea. However they were not able to establish the airway with the cric. Anesthesia came up and together they were able to eventually establish airway with ETT via glidescope. Noted to have severe laryngeal and airway edema from previous attempts. I came to the bedside today for urgent evaluation. The patient is ventilating, intubated and stable. The ICU attending is holding pressure on the neck. There is blood saturating the dressing. Review of Systems Review of Systems: ROS unobtainable: Yes unobtainable due to endotracheal tube PMFSH Past Medical History Medical History Alcohol abuse Anxiety Depression Erectile dysfunction Hypertension Mixed hyperlipidemia Obstructive sleep apnea Untreated, patient cannot tolerate mask. Surgical History Surgical History History of orthopedic surgery ORIF right hand fracture with hardware. ORIF left ankle fracture. Family History Family History Other Cerebrovascular accident Diabetes mellitus Family history of cardiovascular disease Family history of hypercholesterolemia Hypertension Social History Social History Social History: Surrogate decision maker: Peri Souza, . Code status: Full code. Smoking status: Never smoker Smokeless tobacco user: chewing tobacco Alcohol intake: current Drinks per week: 35 Alcohol use details: Consumes were 5 beers a day. Previously 1/5 vodka a day. Additional living arrangements comments: Resides in [place] with his . 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 Gender identity (if verbalized by the patient): Male Sexual Orientation (if Verbalized by the Patient): Straight or Heterosexual Spiritual care concerns: No Meds Home Medications and Allergies Home Medications Medication Instructions Recorded Confirmed Type diltiazem HCl 240 mg 240 mg .ROUTE .COMPLEX #90 cap 03/02/20 06/20/20 Rx capsule,extended release 24 hr alprazolam 0.5 mg PO TID PRN 06/20/20 06/20/20 History lisinopril 40 mg PO BID 06/20/20 06/20/20 History rosuvastatin 40 mg PO DAILY 06/20/20 06/20/20 History venlafaxine 150 mg PO DAILY 06/20/20 06/20/20 History Allergies Allergy/AdvReac Type Severity Reaction Status Date / Time No Known Allergies Allergy Verified 06/20/20 18:53 Vital Signs Vital Signs - 24 hr 06/21/20 15:24 06/21/20 16:00 06/21/20 20:00 Temperature 36.4 C L Pulse Rate 96 90 Pulse Rate [Apical] 97 90 Respiratory
[2020-06-22] MEDS: diazePAM INJ (*CRX) 10 MG/2 ML SYRINGE (12:28)
[2020-06-22] MEDS: MIDAZOLAM HCL (*CRX) 2 MG/2 ML VIAL 4 MG (12:28)
[2020-06-22] MEDS: diazePAM INJ (*CRX) 10 MG/2 ML SYRINGE IV PUSH (12:28)
[2020-06-22] MEDS: LACTATED RINGERS 1,000 ML 999 ML ×2 (12:29→14:57)
[2020-06-22] MEDS: MIDAZOLAM 100MG/NS 100ML(*CRX) 100 MG/100 ML BAG 10 MG IV CONT ×2 (12:35→21:32)
[2020-06-22] MEDS: RAPID SEQUENCE INTUBATION KIT 1 EACH (12:35)
--- NOTE | 2020-06-22 12:38 | WPDPROCEDUR ---
Procedures Intubation Intubation Date: 06/22/20 Intubation Time: 11:00 A pre-procedural Time-Out was completed immediately before starting the procedure and confirmed: Patient Identification, Site, Procedure, Patient Position and the Availability of Requisite Equipment: Yes Sedative: ketamine Paralytic: rocuronium Assist device used: fiber optic device ET tube size: 7 Tube secured depth (cm): 25 Tube secured location: teeth Patient tolerated procedure: other (The patient was a difficulty airway intubation. There were multiple attempts by myself and anesthesia. A size 7.0 was finally inserted by Anesthesia. There was significant bleeding and airway edema. I also attempted a cricothyroidotomy unsuccessfully. There was significant bleeding but controlled.) Intubation complications: difficult intubation and surgical airway needed (surgical airway attempted due to significant hypoxia down to 50s with diffculty in air bag ventilation. bleeding occurred which was controlled with pressure. )
--- NOTE | 2020-06-22 12:47 | WPDCNINT ---
Assessment and Plan Assessment and plan (1) Acute alcohol intoxication delirium with moderate or severe use disorder: Code(s): F10.221 - Alcohol dependence with intoxication delirium Status: Acute Assessment and Plan: - versed drip at 10 mg/hr - will add propfol drip as needed - goal RASS of -4 to -5 (2) Difficult intubation: Code(s): T88.4XXA - Failed or difficult intubation, initial encounter Status: Acute Assessment and Plan: Complicated by air way edema, bleeding and failed cricothyrotomy. - oral ET tube placed by Anesthesia, appreciate their help and support. - ENT will take him to OR today to explore the neck, further recommendations to come, appreciate their management and support. - solumedrol 40 mg IV Q8h for six doses, no plan for surgical cricothyrotomy at this point. Will let edema recover over the next few days. Additional Plan I spoke extensively with his mother and father about the course of events and his current condition and answered all their questions. Anesthesia was consulted ENT was consulted. Code status: Full code Critical care time spent: 95 minutes This dictation may have been done utilizing a voice recognition system. Attempts have been made to correct errors. However, there may be uncorrected grammatical, spelling, and recognition errors present. Due to a high probability of clinically significant, life threatening deterioration, the patient required my highest level of preparedness to intervene emergently and I personally spent this critical care time directly and personally managing the patient. This critical care time included obtaining a history; examining the patient; pulse oximetry; ordering and review of studies; arranging urgent treatment with development of a management plan; evaluation of patient's response to treatment; frequent reassessment; and discussions with other providers. It was exclusive of separately billable procedures and treating other patients and teaching time. Please see Assessment and Plan section and the rest of the note for further information on patient assessment and treatment Broadcast Transmitter Operator Consult Note Consult date: 06/22/20 Time Seen: 09:30 HPI: Del Souza is a 50 year old male Alcoholic who was admitted with alcohol withdrawal. He was brought to the intensive care unit this morning due to worsening agitation. He was given multiple doses of Ativan, Versed, Valium and later ketamine at very high doses. He had to be put in 4 point restraints and security was called to help keep him restrained and keep him from hurting himself or others. He later became very obtunded and I made a decision to intubate the patient to protect his airway. Unfortunately he was a very difficult airway intubation and multiple attempts were tried originally with a colitis scope size 8.0 ET tube and then later a size 7 ET tube with significant edema and swelling in the back. His O2 saturations dropped into the 50s and he was difficult to bag and hence I made a decision to attempt a cricothyroidotomy. This was unfortunately unsuccessful and there was significant bleeding which was controlled by pressure. in the meantime we were able to improve his saturations by bag-mask ventilation using an oral airway as suggested by Anesthesia. After a few attempts of intubation by Anesthesia a size 7.0 ET tube was finally able to be placed using a GlideScope from the anesthesia department. ENT was consulted and will be taking the patient to the OR to explore the neck and further recommendations will be made. I communicated all of the above events and findings to his mother and father who were in the conference room and answered all of their questions. Review of Systems Review of Systems: All systems reviewed & are unremarkable except as noted in HPI and below [facility] Past Medical History Medical History Alcohol a
--- NOTE | 2020-06-22 12:48 | PC.NURSE ---
Patient came in with alcohol withdrawl. [address] Loaiza for telephone orders of ativan for agitation. 1030-4mg Ativan given 1035-Code Purple called as patient became belligerent with hitting staff and restraints put on and 6 staff members holding patient down for safety and 4mg Ativan given-Dr. Downs and Dr. Loaiza at bedside 1040-4mg Ativan given 1045-4mg Ativan and 10mg Valium given 1050-4mg Ativan given 1055-8mg Ativan given 1105-4mg Ativan given 1107-4mg Versed given 1111-10mg Valium given 1115-4mg Versed given 1118-100mg Ketamine given 1130-planned to intubate for airway protection 75mg Fentanyl, 150mg Ketamine and 100mg Rocc given at 1135
--- NOTE | 2020-06-22 12:58 | WPDANESEPPF ---
Anes - Initial Pre Proc Eval Procedure: Operation Date: 06/22/20 12:30 Proposed Procedures p Neck Exploration - Sajan Guevara MD Date/Time: 06/22/20 12:58 Surgeon: Spike Downs MD Pre Op Diagnosis: Seizure like activity/stress Patient Data Age: 50 Gender: M Height: 6 ft Weight: 111 kg Last Vital Signs Temp 36.8 C 06/22/20 08:22 Pulse 90 06/22/20 12:35 Resp 20 06/22/20 12:35 BP 137/95 H 06/22/20 12:00 Pulse Ox 99 06/22/20 12:00 Allergies Allergy/AdvReac Type Severity Reaction Status Date / Time No Known Allergies Allergy Verified 06/20/20 18:53 Home Medications Medication Instructions Recorded Confirmed Type diltiazem HCl 240 mg 240 mg .ROUTE .COMPLEX #90 cap 03/02/20 06/20/20 Rx capsule,extended release 24 hr alprazolam 0.5 mg PO TID PRN 06/20/20 06/20/20 History lisinopril 40 mg PO BID 06/20/20 06/20/20 History rosuvastatin 40 mg PO DAILY 06/20/20 06/20/20 History venlafaxine 150 mg PO DAILY 06/20/20 06/20/20 History Laboratory Tests 06/22/20 06/22/20 05:08 05:08 WBC 5.4 K/mm3 K/mm3 (4.5-10.0) RBC 4.14 M/mm3 L M/mm3 (4.6-6.20) Hgb 13.8 g/dL L g/dL (14.0-18.0) Hct 40.2 % L % (42.0-52.0) MCV 97.1 fl fl (80-100) MCH 33.3 pg pg (26-34) MCHC 34.3 g/dl g/dl (32-36) RDW 12.4 % % (11.5-14.5) Plt Count 146 k/mm3 L k/mm3 (150-375) MPV 9.4 fl fl (7.4-10.4) % Immature Plt Fraction 3.0 % % (0.9-11.2) Sodium 133 mmol/L L mmol/L (137-145) Potassium 3.4 mmol/L mmol/L (3.4-5.0) Chloride 99 mmol/L mmol/L (98-107) Carbon Dioxide 25 mmol/L mmol/L (22-30) Anion Gap 9 mmol/L mmol/L (8-16) BUN 11 mg/dL mg/dL (9-20) Creatinine 0.70 mg/dL mg/dL (0.7-1.3) Estim Creat Clear Calc 143 ml/min ml/min Estimated GFR > 60 (59 - ) Glucose 89 mg/dL mg/dL (75-110) Calcium 8.5 mg/dL mg/dL (8.4-10.2) Magnesium 2.1 mg/dL mg/dL (1.6-2.3) Total Bilirubin 1.0 mg/dL mg/dL (0.2-1.3) AST 97 U/L H U/L (17-59) ALT 114 U/L H U/L (4-50) Alkaline Phosphatase 53 U/L U/L (38-126) Total Creatine Kinase 609 U/L H U/L (55-170) Total Protein 6.0 g/dL L g/dL (6.3-8.2) Albumin 3.9 g/dL g/dL (3.5-5.1) Patient hx anesthesia problems: none Family hx anesthesia problems: none PMFSH Past Medical History Medical History Alcohol abuse Anxiety Depression Erectile dysfunction Hypertension Mixed hyperlipidemia Obstructive sleep apnea Untreated, patient cannot tolerate mask. Surgical History Surgical History History of orthopedic surgery ORIF right hand fracture with hardware. ORIF left ankle fracture. Family History Family History Other Cerebrovascular accident Diabetes mellitus Family history of cardiovascular disease Family history of hypercholesterolemia Hypertension Social History Social History Social History: Surrogate decision maker: ePri Souza, . Code status: Full code. Smoking status: Never smoker Smokeless tobacco user: chewing tobacco Alcohol intake: current Drinks per week: 35 Alcohol use details: Consumes were 5 beers a day. Previously 1/5 vodka a day. Additional living arrangements comments: Resides in [place] with his . 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 Gender identity (if verbalized by the patient): Male Sexual Orientation (if Verbalized by the Patient): Straight or Heterosexual Spiritual care concerns: No Anes - Eval Final PreProcedure Day of Procedure 06/22/20 12:58 Patient weight: obese Heart: regular rate and rhythm [place]
[2020-06-22] MEDS: ceFAZolin SODIUM 1 GM VIAL 2 GM IV PUSH (13:00)
--- NOTE | 2020-06-22 13:05 | PM.EVENT ---
Event Note Event Note Event Note: I was called to ICU to assist with difficult airway by ICU team. I responded immediately. The patient's oral airway was bloody. Oxygen saturations were in the 90s with HR of 110s and BPs 210s/100s. I suctioned multiple times and assisted with mask ventilation using oral airway while a fiberoptic glidescope was prepared. Glidescope intubation was obtained using #4 laryngoscope blade and a 7.0 ETT was passed through the vocal cords. Confirmation by color change indicator and bilateral breath sounds were heard. Tube was secured 24 cm at the teeth line. Sats were 100% before I left the room. I conferred with Dr. Loaiza and Dr. Guevara about preparation for the operating room.
--- NOTE | 2020-06-22 13:13 | SUR.OPER ---
Patient arrived with catheter in place - patient and draining
[2020-06-22] MEDS: LIDO 1%/EPINEPHRINE 1:100,000 50 ML VIAL INFILTRATE (13:29)
--- NOTE | 2020-06-22 13:57 | PM.PROC ---
Procedure Note - Detailed Date of procedure: 06/22/20 Pre-op diagnosis: Seizure like activity/stress Neck hemorrhage following cricothyroidotomy Post-op diagnosis: same Procedure performed: Neck exploration with control of hemorrhage Description of procedure: Del was in the ICU requiring intubation for airway protection. He was a very difficult airway and there was attempted cricothyroidotomy. Ultimately he was intubated successfully. There was significant bleeding that prompted him to be taken to the OR for neck exploration. He was brought to the OR intubated, sedated. He was prepped and draped in sterile fashion. Incision made in the around the puncture wound. Dissection proceeded through the skin, subcutaneous tissue and around the wound from the cricothyroidotomy. Significant bleeding was soon encountered and the vessel was clamped and tied. This kept bleeding and required vessel clip and further dissection. It was determined that this was the anterior jugular vein, and there was at least two puncture injuries to this vessel. Further exploration, clamping and tying of branches was performed until it was determined that adequate hemosatsis was obtained. Bipolar cautery was performed extensively to ensure no small vessel bleeding. Surgicel was then placed in the wound. A grey drain was placed and will remain for 48 hours. The scar was revised and skin flaps elevated superiorly and inferiorly to close the wound and remove the circular entry from the cricothyroidotomy. The incision was then cloesd in layers with monocryl suture and dermabond. The drain was secured using 3-0 nylon. Anesthesia: GETA Surgeon: Sjaan Guevara MD Estimated blood loss (mL): 150 Drains: Yes Packing: Yes (surgicel) Pathology: none sent Complications: No immediate complications Condition: stable Disposition: ICU Findings: Numerous injuries to anterior jugular vein. Trachea was not significantly disrupted and did not require revision or repair.
[2020-06-22] MEDS: PROPOFOL IV EMULSION 100 ML 6.66 MG IV CONT (14:56)
[2020-06-22] MEDS: NEOMYCIN/POLYMYXIN/BACITRACIN OINTMENT PACKET 1 PACKET (14:57)
[2020-06-22] MEDS: methylPREDNISolone SOD SUCC 40 MG VIAL IV PUSH ×2 (15:05→21:25)
--- NOTE | 2020-06-22 15:23 | PM.IMPN ---
Progress Note: A&P Assessment and Plan (1) Alcohol withdrawal seizure: Code(s): F10.239 - Alcohol dependence with withdrawal, unspecified; R56.9 - Unspecified convulsions Status: Acute Assessment and Plan: 06/22/20 15:23 Patient has not had anything to drink since evening, timeline fits with alcohol withdrawal seizure. Initiate seizure precautions. He has been started on scheduled Librium with Ativan available as needed. 06/21/20 15:09 Patient is a 50-year-old male with history of alcohol abuse and his last drink for on June 17, however on SundayJune 20, while sitting on the couch talking on the phone and his her loud noise and patient was having seizure-like activity lasting 3 minutes and patient was brought to the emergency department for further evaluate, his alcohol level was 0, patient is on benzodiazepine, while in the hospital patient has not any episode, patient was seen by Neurology and had a EEG which was normal, patient is started on Librium 50 mg every 6 hours and Ativan as needed, will continue to monitor the patient and check electrolytes and supplement, if remains clinically stable may discharge the patient home tomorrow 06/22 this is program director/morning show host hours call by the cellular biologist the patient was agitated and may be going into DTs patient was given 3 mg of added and 50 mg Librium however patient was not calming down and was transferred to ICU for close observation while in ICU patient went into DTs and was fighting agitated and wanted to leave patient was restrained, patient was given 32 mg of Ativan or close to an hour and Valium, patient kept fighting and agitated it was decided to intubate the patient, initial damper worker tried and was unsuccessful, anesthesiologist came in and patient was intubated, there was bleeding during the process and patient was seen ENT in the or as patient had bleeding veins and was repaired currently patient on versed drip and propfol drip as needed. (2) Elevated LFTs: Code(s): R79.89 - Other specified abnormal findings of blood chemistry Status: Acute Assessment and Plan: Etiology not clear, but may be multifactorial. He was recently started back on a statin, drinks alcohol daily, and had a seizure today with perhaps mild rhabdomyolysis. Repeat LFTs in a.m.. (3) Elevated creatine kinase: Code(s): R74.8 - Abnormal levels of other serum enzymes Status: Acute Assessment and Plan: Moderately elevated but not 5 times the upper limit of normal. Secondary to seizure activity. Repeat CK in a.m.. (4) Hypertension: Code(s): I10 - Essential (primary) hypertension Status: Acute Assessment and Plan: Blood pressures were reviewed and they are pretty well controlled. Continue antihypertensives. (5) Mixed hyperlipidemia: Code(s): E78.2 - Mixed hyperlipidemia Status: Acute Assessment and Plan: Statin on hold at this time given elevated LFTs. (6) Anxiety: Code(s): F41.9 - Anxiety disorder, unspecified Status: Acute Assessment and Plan: Patient has had increase in stress recently as per HPI. Continue venlafaxine. Hold alprazolam while getting scheduled Librium. (7) Alcohol abuse: Code(s): F10.10 - Alcohol abuse, uncomplicated Status: Acute Assessment and Plan: Initiate CIWA protocol. Begin thiamine, folic acid, and multivitamin supplementation. He and his for both working on quitting drinking and they were encouraged to continue doing so. Subjective Date/time seen: 06/22/20 15:23 Patient has not had anything to drink since evening, timeline fits with alcohol withdrawal seizure. Initiate seizure precautions. He has been started on scheduled Librium with Ativan available as needed. 06/21/20 15:09 Patient is a 50-year-old male with history of alcohol abuse and his last drink for on June 17, however on S
[2020-06-22] MEDS: LACTATED RINGERS 1,000 ML 125 ML IV CONT ×2 (15:32→23:36)
[2020-06-22] MEDS: PROPOFOL IV EMULSION 100 ML 19.98 MG IV CONT (23:47)
[2020-06-23] VITALS (46 sets, daily range): BP systolic 106–132; BP diastolic 39–92; PULSE 46–80; RESP 13–26; TEMP 36.7–36.9; O2SAT 94–100
[2020-06-23] MEDS: PROPOFOL IV EMULSION 100 ML 19.98 MG IV CONT ×3 (03:44→23:38)
[2020-06-23 04:49] LABS: Hematocrit 37.3 % (42.0-52.0); Hemoglobin 12.9 g/dL (14.0-18.0); Immature Platelet Fraction Pct 3.6 % (0.9-11.2); Mean Corpuscular HGB Conc 34.6 g/dl (32-36); Mean Corpuscular Hemoglobin 33.6 pg (26-34); Mean Corpuscular Volume 97.1 fl (80-100); Mean Platelet Volume 9.7 fl (7.4-10.4); Platelet Count Result 129 k/mm3 (150-375); Red Blood Count 3.84 M/mm3 (4.6-6.20); Red Cell Distribution Width 12.4 % (11.5-14.5); White Blood Count 5.7 K/mm3 (4.5-10.0)
[2020-06-23 05:00] LABS: Alanine Aminotransferase 86 U/L (4-50); Albumin Level 3.5 g/dL (3.5-5.1); Alkaline Phosphatase 46 U/L (38-126); Anion Gap 7 mmol/L (8-16); Aspartate Amino Transferase 55 U/L (17-59); Bilirubin,Total 0.5 mg/dL (0.2-1.3); Blood Urea Nitrogen 9 mg/dL (9-20); Calcium 8.2 mg/dL (8.4-10.2); Carbon Dioxide 26 mmol/L (22-30); Chloride 102 mmol/L (98-107); Creatine Kinase 299 U/L (55-170); Estimated CRCL calculation 194 ml/min; Estimated Glomerular Filt Rate > 60; Glucose 142 mg/dL (75-110); Magnesium 2.1 mg/dL (1.6-2.3); Sodium 135 mmol/L (137-145)
[2020-06-23] MEDS: MIDAZOLAM 100MG/NS 100ML(*CRX) 100 MG/100 ML BAG 10 MG IV CONT ×3 (05:52→23:41)
[2020-06-23] MEDS: LACTATED RINGERS 1,000 ML 125 ML IV CONT (05:55)
[2020-06-23] MEDS: methylPREDNISolone SOD SUCC 40 MG VIAL IV PUSH ×3 (05:57→20:43)
--- NOTE | 2020-06-23 07:00 | WPDINTPN ---
Progress Note: A&P Assessment and Plan (1) Respiratory failure, acute: Qualifiers: Respiratory failure complication: hypoxia Qualified Code(s): J96.01 - Acute respiratory failure with hypoxia Code(s): J96.00 - Acute respiratory failure, unspecified whether with hypoxia or hypercapnia Status: Acute Assessment and Plan: Acute Respiratory failure secondary to alcohol withdrawal, difficult airway Chest x-ray shows atelectasis. Patient is afebrile and WBC is normal Continue full mechanical ventilation support to prevent hypoxemia/hypercarbia and end organ damage. Check ABG Increase PEEP to 8 Continue steroids for airway edema Bronchodilators (2) Acute alcohol intoxication delirium with moderate or severe use disorder: Code(s): F10.221 - Alcohol dependence with intoxication delirium Status: Acute Assessment and Plan: - versed drip at 10 mg/hr - will add propfol drip as needed - goal RASS of -4 to -5 -thiamine and folic acid (3) Difficult intubation: Code(s): T88.4XXA - Failed or difficult intubation, initial encounter Status: Acute Assessment and Plan: Complicated by air way edema, bleeding and failed cricothyrotomy. - oral 7.0 ET tube placed by Anesthesia, appreciate their help and support. - Neck exploration with control of hemorrhage performed by ENT 06/22 - solumedrol 40 mg IV Q8h for six doses, no plan for surgical cricothyrotomy at this point. Will let edema recover for now and keep patient sedated due to risky airway. -will reassess tomorrow by assessing cuff leak (4) Elevated creatine kinase: Code(s): R74.8 - Abnormal levels of other serum enzymes Status: Acute (5) Rhabdomyolysis: Code(s): M62.82 - Rhabdomyolysis Status: Acute Assessment and Plan: CK Level improving Continue IV fluids but decrease the rate at this time (6) Electrolyte abnormality: Code(s): E87.8 - Other disorders of electrolyte and fluid balance, not elsewhere classified Status: Acute Additional Plan DVT prophylaxis -Lovenox Stress ulcer prophylaxis -start Protonix Nutrition -insert OG tube and start Tube Feeds Code Status - Full Code Critical care time spent: 35 minutes This dictation may have been done utilizing a voice recognition system. Attempts have been made to correct errors. However, there may be uncorrected grammatical, spelling, and recognition errors present. Due to a high probability of clinically significant, life threatening deterioration, the patient required my highest level of preparedness to intervene emergently and I personally spent this critical care time directly and personally managing the patient. This critical care time included obtaining a history; examining the patient; pulse oximetry; ordering and review of studies; arranging urgent treatment with development of a management plan; evaluation of patient's response to treatment; frequent reassessment; and discussions with other providers. It was exclusive of separately billable procedures and treating other patients and teaching time. Please see Assessment and Plan section and the rest of the note for further information on patient assessment and treatment Subjective Date/time seen: 06/23/20 0700 Overnight events reviewed. Afebrile Continues to be on mechanical ventilation Continues to be on sedation with propofol and Versed Vitals acceptable Minimal amount of blood in the suction bulb at the surgical exploration site Review of Systems Review of Systems: ROS unobtainable: Yes unobtainable due to endotracheal tube Exam Narrative: Exam Narrative: General: Pt is sedated, intubated and on mechanical ventilation Lungs/Chest: Trachea central Coarse BS B/L, No crackles or wheezing. Cardiac: RRR. Normal S1 S2. No murmurs Circulation: Pedal pulses are intact and symmetrical. Abdomen: Decreased bowel sounds. Obese. Soft. NT. ND. Extremities: No clubbing, cyano
[2020-06-23] MEDS: PROPOFOL IV EMULSION 100 ML 23.31 MG IV CONT (07:22)
[2020-06-23] MEDS: ENOXAPARIN 40 MG/0.4 ML SYRINGE SUB-Q (07:22)
--- NOTE | 2020-06-23 07:42 | WPDANESPN ---
Anes - Prog Note Post-Op Date/Time: 06/23/20 07:42 Cardiovascular status: other (remains intubated ) Respiratory status: other (see above ) Airway patency: other (see above) Mental status: other (mane) Post-Op hydration status: normal Vital Signs: Last Vital Signs Temp 98.1 F 06/23/20 04:00 Pulse 56 L 06/23/20 07:35 Resp 16 06/23/20 07:35 BP 116/73 06/23/20 06:00 Pulse Ox 100 06/23/20 07:35 Pain Score (VAS): MANE I/O: Intake & Output 06/22/20 06/22/20 06/23/20 15:59 23:59 07:59 Intake Total 1200 1280 Output Total 1410 1725 Balance -210 -445 Laboratory Tests 06/23/20 04:38 06/23/20 04:38 06/20/20 06/23/20 06/23/20 15:37 04:38 04:38 WBC 5.7 RBC 3.84 L Hgb 12.9 L Hct 37.3 L MCV 97.1 MCH 33.6 MCHC 34.6 RDW 12.4 Plt Count 129 L MPV 9.7 % Immature Plt Fraction 3.6 Sodium 135 L Potassium 4.0 Chloride 102 Carbon Dioxide 26 Anion Gap 7 L BUN 9 Creatinine 0.50 L Estim Creat Clear Calc 194 Estimated GFR > 60 Glucose 142 H Calcium 8.2 L Magnesium 2.1 Total Bilirubin 0.5 AST 55 ALT 86 H Alkaline Phosphatase 46 Total Creatine Kinase 299 H Total Protein 6.0 L Albumin 3.5 Methyl Alcohol Level Cancelled Post-procedural complaints: none Patient Feedback: Patient satisfied with anesthetic care.
[2020-06-23 08:51] LABS: Alveolar/Arterial O2 Gradient 123.8 mmHg; Base Excess ABG -1.7 mEq/l (+/-2.0); Fractional Inspired Oxygen 35 %; HCO3 ABG 22.4 mEq/l (22.0-26.0); Oxygen Content ABG 18.5 %vol (16.0-22.0); Oxygen Saturation ABG 96.4 % (95.0-100.0); Oxyhemoglobin 95.1 % THb (90.0-100.0); PCO2 ABG 36.1 mmHg (35.0-45.0); PO2 ABG 83.8 mmHg (80.0-100.0); PO2 FiO2 Ratio Arterial Blood 2.39 %; Total Hemoglobin 13.8 g/dL (12.0-18.0)
[2020-06-23 08:53] LABS: Arterial Blood Gas PEEP 8 cmH2O; Arterial Blood Gas Tidal Volume 500 ml; Arterial Blood Gas Vent Mode CMV; Arterial Blood Gas Ventilator rate 16 /MIN; Device VENTILATOR; Modified Allen's Test Pass; Site Drawn RIGHT RADIAL
[2020-06-23] MEDS: PANTOPRAZOLE SODIUM IV 40 MG VIAL IV PUSH (08:58)
--- NOTE | 2020-06-23 10:23 | PCFNICU ---
ICU Rounding Note: Pt current nutrition is NPO but starting tube feedings. Recommend Jevity 1.2 at 50 ml/hour goal rate over 22 hours per day. Last recorded weight is 111kg. Bowel Motility: No bowel movements recorded. Labs Reviewed: Hgb 12.9, Hct 37.3, Na 135, Cr 0.5, Glu 142 Meds Noted: Lovenox, Folic acid, LR at 75mL/hr, Prinivil, Lorazepam, Protonix, Propofol at 23.31 ml/hour (providing 615 calories per day), Vitamin B-1, Fentanyl, Solu-Medrol, Versed, Additional Notes: Recommend Jevity 1.2 at 50 ml/hour over 22 hours providing patient with 1,320 calories, 61 grams of protein, and 887.7 ml of water with 30 ml water flushes q4. With current propofol rate and tube feeding recommendations patient will be getting 1,935 calories a day. If they are able to ween patient off of propofol recommend advancing to goal rate of 70 ml/hour over 22 hours per day. If unable to wean off propofol recommend adding a protein flush once per day. Following daily in ICU rounds. Will complete additional follow up assessment every Sunday/Sunday.
--- NOTE | 2020-06-23 10:44 | PCNSR ---
On 06/23/20, the student, Loulou Salas, provided care and completed [facility] documentation on this patient. I have reviewed the student's documentation and agree with the findings.
[2020-06-23 11:48] LABS: Glucose Point of Care 144 (65-105)
[2020-06-23] MEDS: LACTATED RINGERS 1,000 ML 75 ML IV CONT (14:06)
--- NOTE | 2020-06-23 15:42 | PM.IMPN ---
Progress Note: A&P Assessment and Plan (1) Alcohol withdrawal seizure: Code(s): F10.239 - Alcohol dependence with withdrawal, unspecified; R56.9 - Unspecified convulsions Status: Acute Assessment and Plan: 06/23/20 15:42 Patient has not had anything to drink since evening, timeline fits with alcohol withdrawal seizure. Initiate seizure precautions. He has been started on scheduled Librium with Ativan available as needed. 06/21/20 15:09 Patient is a 50-year-old male with history of alcohol abuse and his last drink for on June 17, however on SundayJune 20, while sitting on the couch talking on the phone and his her loud noise and patient was having seizure-like activity lasting 3 minutes and patient was brought to the emergency department for further evaluate, his alcohol level was 0, patient is on benzodiazepine, while in the hospital patient has not any episode, patient was seen by Neurology and had a EEG which was normal, patient is started on Librium 50 mg every 6 hours and Ativan as needed, will continue to monitor the patient and check electrolytes and supplement, if remains clinically stable may discharge the patient home tomorrow 06/22 this is unloading checker hours call by the equal opportunity representative the patient was agitated and may be going into DTs patient was given 3 mg of added and 50 mg Librium however patient was not calming down and was transferred to ICU for close observation while in ICU patient went into DTs and was fighting agitated and wanted to leave patient was restrained, patient was given 32 mg of Ativan or close to an hour and Valium, patient kept fighting and agitated it was decided to intubate the patient, initial merchandiser tried and was unsuccessful, anesthesiologist came in and patient was intubated, there was bleeding during the process and patient was seen ENT in the or as patient had bleeding veins and was repaired currently patient on versed drip and propfol drip as needed. 06/23 Patient remains intubated and sedated, plan is monitor on vent and sedation with versed and propfol as needed which is on hold, patient is being treated with methylprednisone, today will start NGtube feeding and possible reassess tomorrow and and further recommendation to follow (2) Elevated LFTs: Code(s): R79.89 - Other specified abnormal findings of blood chemistry Status: Acute Assessment and Plan: Etiology not clear, but may be multifactorial. He was recently started back on a statin, drinks alcohol daily, and had a seizure today with perhaps mild rhabdomyolysis. Repeat LFTs in a.m.. (3) Elevated creatine kinase: Code(s): R74.8 - Abnormal levels of other serum enzymes Status: Acute Assessment and Plan: Moderately elevated but not 5 times the upper limit of normal. Secondary to seizure activity. Repeat CK in a.m.. (4) Hypertension: Code(s): I10 - Essential (primary) hypertension Status: Acute Assessment and Plan: Blood pressures were reviewed and they are pretty well controlled. Continue antihypertensives. (5) Mixed hyperlipidemia: Code(s): E78.2 - Mixed hyperlipidemia Status: Acute Assessment and Plan: Statin on hold at this time given elevated LFTs. (6) Anxiety: Code(s): F41.9 - Anxiety disorder, unspecified Status: Acute Assessment and Plan: Patient has had increase in stress recently as per HPI. Continue venlafaxine. Hold alprazolam while getting scheduled Librium. (7) Alcohol abuse: Code(s): F10.10 - Alcohol abuse, uncomplicated Status: Acute Assessment and Plan: Initiate CIWA protocol. Begin thiamine, folic acid, and multivitamin supplementation. He and his for both working on quitting drinking and they were encouraged to continue doing so. Subjective Date/time seen: 06/23/20 15:42 Patient has not had anything to drink since evening, t
[2020-06-23] MEDS: PROPOFOL IV EMULSION 100 ML 16.65 MG IV CONT ×2 (16:02→20:34)
[2020-06-23] MEDS: SODIUM CHLORIDE 0.9% IV 1,000 ML 75 ML IV CONT (20:34)
[2020-06-24] VITALS (43 sets, daily range): BP systolic 103–142; BP diastolic 62–112; PULSE 44–78; RESP 12–25; TEMP 36.4–36.9; O2SAT 96–100
--- NOTE | 2020-06-24 01:00 | PC.NURSE ---
Patient now able to follow simple commands.
[2020-06-24] MEDS: chlordiazePOXIDE (*CRX) 25 MG CAPSULE 50 MG PO ×2 (01:10→05:35)
[2020-06-24] MEDS: PROPOFOL IV EMULSION 100 ML 23.31 MG IV CONT ×2 (03:25→07:48)
[2020-06-24 04:30] LABS: Base Excess ABG 2.6 mEq/l (+/-2.0); Carboxyhemoglobin 0.3 % THb (0-2.0); Fractional Inspired Oxygen 35 %; HCO3 ABG 26.5 mEq/l (22.0-26.0); Methemoglobin ABG 0.4 %THb (0-1.5); Oxygen Content ABG 17.4 %vol (16.0-22.0); Oxygen Saturation ABG 98.2 % (95.0-100.0); Oxyhemoglobin 96.8 % THb (90.0-100.0); PCO2 ABG 38.3 mmHg (35.0-45.0); PO2 FiO2 Ratio Arterial Blood 3.11 %; Reduced Hemoglobin 2.5 %THb (0-5.0); Total Hemoglobin 12.7 g/dL (12.0-18.0); pH ABG 7.458 (7.350-7.450)
[2020-06-24 04:31] LABS: Device VENTILATOR; Modified Allen's Test Pass; Site Drawn RIGHT RADIAL
[2020-06-24 04:32] LABS: Arterial Blood Gas PEEP 8 cmH2O; Arterial Blood Gas Tidal Volume 500 ml; Arterial Blood Gas Vent Mode CMV; Arterial Blood Gas Ventilator rate 16 /MIN
[2020-06-24 04:47] LABS: Hematocrit 33.5 % (42.0-52.0); Hemoglobin 11.7 g/dL (14.0-18.0); Mean Corpuscular HGB Conc 34.9 g/dl (32-36); Mean Corpuscular Hemoglobin 33.4 pg (26-34); Mean Corpuscular Volume 95.7 fl (80-100); Mean Platelet Volume 10.3 fl (7.4-10.4); Platelet Count Result 127 k/mm3 (150-375); Red Cell Distribution Width 12.2 % (11.5-14.5); White Blood Count 5.8 K/mm3 (4.5-10.0)
[2020-06-24 05:14] LABS: Alanine Aminotransferase 56 U/L (4-50); Albumin Level 3.1 g/dL (3.5-5.1); Alkaline Phosphatase 43 U/L (38-126); Anion Gap 2 mmol/L (8-16); Aspartate Amino Transferase 31 U/L (17-59); Bilirubin,Total 0.2 mg/dL (0.2-1.3); Blood Urea Nitrogen 11 mg/dL (9-20); Calcium 8.1 mg/dL (8.4-10.2); Carbon Dioxide 28 mmol/L (22-30); Chloride 105 mmol/L (98-107); Creatine Kinase 115 U/L (55-170); Estimated CRCL calculation 200 ml/min; Estimated Glomerular Filt Rate > 60; Glucose 163 mg/dL (75-110); Magnesium 2.4 mg/dL (1.6-2.3); Sodium 135 mmol/L (137-145)
[2020-06-24] MEDS: methylPREDNISolone SOD SUCC 40 MG VIAL IV PUSH (05:35)
--- NOTE | 2020-06-24 08:36 | WPDINTPN ---
Progress Note: A&P Assessment and Plan (1) Respiratory failure, acute: Qualifiers: Respiratory failure complication: hypoxia Qualified Code(s): J96.01 - Acute respiratory failure with hypoxia Code(s): J96.00 - Acute respiratory failure, unspecified whether with hypoxia or hypercapnia Status: Acute Assessment and Plan: Acute Respiratory failure secondary to alcohol withdrawal, difficult airway Chest x-ray shows atelectasis. Patient is afebrile and WBC is normal Continue full mechanical ventilation support to prevent hypoxemia/hypercarbia and end organ damage. We assessed patient's airway by checking cuff leak. Despite 7 size tube he had minimal leak on deflation of ETT cuff Will check CT soft tissue neck today continue steroids for another 24 hours and reassess tomorrow Bronchodilators Decrease tidal volume to 450 mL (2) Acute alcohol intoxication delirium with moderate or severe use disorder: Code(s): F10.221 - Alcohol dependence with intoxication delirium Status: Acute Assessment and Plan: -continue Versed and propofol drip for now while patient is intubated - goal RASS of -4 to -5 -thiamine and folic acid (3) Difficult intubation: Code(s): T88.4XXA - Failed or difficult intubation, initial encounter Status: Acute Assessment and Plan: Complicated by air way edema, bleeding and failed cricothyrotomy. - oral 7.0 ET tube placed by Anesthesia, appreciate their help and support. - Neck exploration with control of hemorrhage performed by ENT 06/22 - solumedrol, no plan for surgical cricothyrotomy at this point. Will let edema recover for now and keep patient sedated due to risky airway. -will reassess tomorrow by assessing cuff leak (4) Rhabdomyolysis: Code(s): M62.82 - Rhabdomyolysis Status: Acute Assessment and Plan: CK Level has normalized Will discontinue IV fluids (5) Electrolyte abnormality: Code(s): E87.8 - Other disorders of electrolyte and fluid balance, not elsewhere classified Status: Acute Assessment and Plan: Improved after replacement yesterday Additional Plan DVT prophylaxis -Lovenox Stress ulcer prophylaxis - Protonix Nutrition -continue tube Feeds Code Status - Full Code Critical care time spent: 32 minutes This dictation may have been done utilizing a voice recognition system. Attempts have been made to correct errors. However, there may be uncorrected grammatical, spelling, and recognition errors present. Due to a high probability of clinically significant, life threatening deterioration, the patient required my highest level of preparedness to intervene emergently and I personally spent this critical care time directly and personally managing the patient. This critical care time included obtaining a history; examining the patient; pulse oximetry; ordering and review of studies; arranging urgent treatment with development of a management plan; evaluation of patient's response to treatment; frequent reassessment; and discussions with other providers. It was exclusive of separately billable procedures and treating other patients and teaching time. Please see Assessment and Plan section and the rest of the note for further information on patient assessment and treatment Subjective Date/time seen: 06/24/20 0730 Overnight events reviewed Afebrile Continues to be on mechanical ventilation Continues to be on sedation but follows commands Vitals acceptable Review of Systems Review of Systems: ROS unobtainable: Yes unobtainable due to endotracheal tube Exam Narrative: Exam Narrative: General: Pt is sedated, intubated and on mechanical ventilation Lungs/Chest: Trachea central Coarse BS B/L, No crackles or wheezing. Cardiac: RRR. Normal S1 S2. No murmurs Circulation: Pedal pulses are intact and symmetrical. Abdomen: Decreased bowel sounds. Obese. Soft. NT. ND. Extremities: No clubbing, cyanosis or ed
[2020-06-24] MEDS: THERAPEUTIC MULTIVITAMINS/MINERALS TAB (*BKC) 1 TABLET PO (09:02)
[2020-06-24] MEDS: THIAMINE HCL 100 MG TABLET PO (09:02)
[2020-06-24] MEDS: ENOXAPARIN 40 MG/0.4 ML SYRINGE SUB-Q (09:02)
[2020-06-24] MEDS: FOLIC ACID 1 MG TABLET PO (09:02)
[2020-06-24] MEDS: PANTOPRAZOLE SODIUM IV 40 MG VIAL IV PUSH (09:02)
[2020-06-24] MEDS: VENLAFAXINE HCL XR 75 MG CAP.ER.24H 150 MG PO (09:02)
[2020-06-24] MEDS: lisinopriL 20 MG TABLET 40 MG PO (09:02)
[2020-06-24] MEDS: PROPOFOL IV EMULSION 100 ML 26.64 MG IV CONT ×3 (10:57→18:21)
[2020-06-24] MEDS: MIDAZOLAM 100MG/NS 100ML(*CRX) 100 MG/100 ML BAG IV CONT (10:58)
--- NOTE | 2020-06-24 11:08 | PCFNICU ---
ICU Rounding Note: Pt current nutrition is Jevity 1.2 at 50 ml/hr. Last recorded weight is 118.1kg. Bowel Motility:No BM reported, Miralax added and Dulcalax-PRN. Labs Reviewed:Na 135,Alb 3.1 Meds Noted:Propofol 23.31 ml/hr,Lovenox, Folic acid, LR at 75mL/hr, Prinivil, Lorazepam, Protonix, Vitamin B-1, Fentanyl, Versed Additional Notes: ICU rounds today. Patient remains on mechanical vent. Tolerating tube feeding of Jevity 1.2 at 50 ml/hr. Tube feeding with Propofol is providing patient with 1935 kcals and 61 gms protein. Free water flush has increased to 100 ml q 4 hours. Agree with diet orders. Following daily in ICU rounds. Assessing/reassessing Sunday and Sunday.
--- NOTE | 2020-06-24 16:34 | PM.IMPN ---
Progress Note: A&P Assessment and Plan (1) Alcohol withdrawal seizure: Code(s): F10.239 - Alcohol dependence with withdrawal, unspecified; R56.9 - Unspecified convulsions Status: Acute Assessment and Plan: 06/24/20 16:34 Patient has not had anything to drink since evening, timeline fits with alcohol withdrawal seizure. Initiate seizure precautions. He has been started on scheduled Librium with Ativan available as needed. 06/21/20 15:09 Patient is a 50-year-old male with history of alcohol abuse and his last drink for on June 17, however on SundayJune 20, while sitting on the couch talking on the phone and his her loud noise and patient was having seizure-like activity lasting 3 minutes and patient was brought to the emergency department for further evaluate, his alcohol level was 0, patient is on benzodiazepine, while in the hospital patient has not any episode, patient was seen by Neurology and had a EEG which was normal, patient is started on Librium 50 mg every 6 hours and Ativan as needed, will continue to monitor the patient and check electrolytes and supplement, if remains clinically stable may discharge the patient home tomorrow 06/22 this is rouge sifter hours call by the porter used car lot the patient was agitated and may be going into DTs patient was given 3 mg of added and 50 mg Librium however patient was not calming down and was transferred to ICU for close observation while in ICU patient went into DTs and was fighting agitated and wanted to leave patient was restrained, patient was given 32 mg of Ativan or close to an hour and Valium, patient kept fighting and agitated it was decided to intubate the patient, initial fireworks inspector tried and was unsuccessful, anesthesiologist came in and patient was intubated, there was bleeding during the process and patient was seen ENT in the or as patient had bleeding veins and was repaired currently patient on versed drip and propfol drip as needed. 06/23 Patient remains intubated and sedated, plan is monitor on vent and sedation with versed and propfol as needed which is on hold, patient is being treated with methylprednisone, today will start NGtube feeding and possible reassess tomorrow and and further recommendation to follow. 06/24 patient has remained intubated and sedated requiring versed as well as propfol patient is being treated with treated with methylprednisone, started NGtube feeding on 06/23 and possible reassess tomorrow and and further recommendation to follow. Appreciate fireworks inspector (2) Elevated LFTs: Code(s): R79.89 - Other specified abnormal findings of blood chemistry Status: Acute Assessment and Plan: Etiology not clear, but may be multifactorial. He was recently started back on a statin, drinks alcohol daily, and had a seizure today with perhaps mild rhabdomyolysis. Repeat LFTs in a.m.. (3) Elevated creatine kinase: Code(s): R74.8 - Abnormal levels of other serum enzymes Status: Acute Assessment and Plan: Moderately elevated but not 5 times the upper limit of normal. Secondary to seizure activity. Repeat CK in a.m.. (4) Hypertension: Code(s): I10 - Essential (primary) hypertension Status: Acute Assessment and Plan: Blood pressures were reviewed and they are pretty well controlled. Continue antihypertensives. (5) Mixed hyperlipidemia: Code(s): E78.2 - Mixed hyperlipidemia Status: Acute Assessment and Plan: Statin on hold at this time given elevated LFTs. (6) Anxiety: Code(s): F41.9 - Anxiety disorder, unspecified Status: Acute Assessment and Plan: Patient has had increase in stress recently as per HPI. Continue venlafaxine. Hold alprazolam while getting scheduled Librium. (7) Alcohol abuse: Code(s): F10.10 - Alcohol abuse, uncomplicated Status: Acute Assessment and Plan: Initiate CIWA protoco
--- NOTE | 2020-06-24 17:20 | WPDPN ---
Progress Note: A&P Assessment and Plan (1) Respiratory failure, acute: Qualifiers: Respiratory failure complication: hypoxia Qualified Code(s): J96.01 - Acute respiratory failure with hypoxia Code(s): J96.00 - Acute respiratory failure, unspecified whether with hypoxia or hypercapnia Status: Acute Assessment and Plan: Del is POD2 neck exploration and vessel repair after attempted cricothyroidotomy. Drain removed today. No evidence of persistent bleeding, hematoma or infection. Is stable on ventilator via ETT and is improving based on imaging findings. Extubate per ICU. Please call to have me reassess if patient is not meeting extubation criteria and potentially needing tracheostomy. After he extubates, I would like to assess the airway with laryngoscopy as an outpatient to evaluate for laryngeal trauma. Review of Systems Review of Systems: ROS unobtainable: Yes unobtainable due to endotracheal tube Exam Narrative: Exam Narrative: Removed CHARLI drain today. Minimal serosanguinous output. Neck incision intact and no evidence of hematoma or bleeding. Objective Data Vital Signs Vital Signs: Vital Signs - 24 hr 06/23/20 17:50 06/23/20 18:00 06/23/20 18:37 Temperature Pulse Rate 47 L 49 L 70 Respiratory Rate 16 16 19 Blood Pressure 132/85 Pulse Oximetry 100 06/23/20 19:45 06/23/20 20:00 06/23/20 20:34 Temperature 36.8 C Pulse Rate 51 L 48 L 47 L Respiratory Rate 16 16 Blood Pressure 123/61 Pulse Oximetry 97 98 06/23/20 20:53 06/23/20 21:48 06/23/20 22:00 Temperature Pulse Rate 75 80 50 L Respiratory Rate 25 H 26 H 16 Blood Pressure 125/69 Pulse Oximetry 100 06/23/20 23:00 06/23/20 23:38 06/23/20 23:41 Temperature Pulse Rate 48 L 47 L 50 L Respiratory Rate 16 16 Blood Pressure Pulse Oximetry 97 06/23/20 23:57 06/24/20 00:00 06/24/20 00:32 Temperature 36.6 C Pulse Rate 48 L 46 L 78 Respiratory Rate 16 16 25 H Blood Pressure 115/72 Pulse Oximetry 100 96 06/24/20 01:45 06/24/20 02:00 06/24/20 03:25 Temperature Pulse Rate 68 54 L 47 L Respiratory Rate 16 16 Blood Pressure 129/83 Pulse Oximetry 100 100 06/24/20 03:33 06/24/20 04:00 06/24/20 04:46 Temperature 36.9 C Pulse Rate 48 L 47 L 47 L Respiratory Rate 16 16 16 Blood Pressure 123/75 Pulse Oximetry 100 99 06/24/20 04:47 06/24/20 05:17 06/24/20 05:43 Temperature Pulse Rate 46 L 47 L 47 L Respiratory Rate 16 16 Blood Pressure Pulse Oximetry 100 06/24/20 06:00 06/24/20 06:22 06/24/20 06:39 Temperature Pulse Rate 46 L 47 L 46 L Respiratory Rate 16 16 16 Blood Pressure 121/74 Pulse Oximetry 99 06/24/20 06:51 06/24/20 07:20 06/24/20 07:40 Temperature Pulse Rate 44 L 66 67 Respiratory Rate 16 20 18 Blood Pressure Pulse Oximetry 100 06/24/20 07:41 06/24/20 07:48 06/24/20 08:00 Temperature 36.6 C Pulse Rate 67 56 L 62 Respiratory Rate 18 16 18 Blood Pressure 140/95 H Pulse Oximetry 100 06/24/20 09:36 06/24/20 10:00 06/24/20 10:57 Temperature Pulse Rate 68 60 50 L Respiratory Rate 22 H 18 16 Blood Pressure 109/64 Pulse Oximetry 98 06/24/20 10:58 06/24/20 11:05 06/24/20 12:00 Temperature 36.4 C Pulse Rate 50 L 50 L 47 L Respiratory Rate 16 16 Blood Pressure 123/77 Pulse Oximetry 99 100 06/24/20 13:51 06/24/20 14:00 06/24/20 14:40 Temperature Pulse Rate 50 L 60 50 L Respiratory Rate 16 16 Blood Pressure 115/75 Pulse Oximetry 100 100 06/24/20 16:57 06/24/20 17:03 Temperature Pulse Rate 50 L 44 L Respiratory Rate 16 Blood Pressure Pulse Oximetry 100 Intake/Output Intake/Output: Intake & Output 06/21/20 06/22/20 06/23/20 06/24/20 23:59 23:59 23:59 23:59 Intake Total 2633.2 1999 3210 2273 Output Total 0095 2310 5696 2407 Balance 283.2 -310 -429 -135 Meds/Results Medications: Active Medications Generic Name Dose Route Start La
[2020-06-24] MEDS: methylPREDNISolone SOD SUCC 125 MG VIAL 40 MG IV PUSH ×2 (18:17→23:46)
[2020-06-24] MEDS: PROPOFOL IV EMULSION 100 ML 33.3 MG IV CONT (21:47)
[2020-06-25] VITALS (42 sets, daily range): BP systolic 110–197; BP diastolic 68–114; PULSE 45–110; RESP 12–35; TEMP 36.6–37.2; O2SAT 91–100
[2020-06-25] MEDS: PROPOFOL IV EMULSION 100 ML 33.3 MG IV CONT ×3 (01:46→05:59)
[2020-06-25 04:41] LABS: Hematocrit 35.1 % (42.0-52.0); Hemoglobin 11.9 g/dL (14.0-18.0); Mean Corpuscular HGB Conc 33.9 g/dl (32-36); Mean Corpuscular Hemoglobin 33.4 pg (26-34); Mean Corpuscular Volume 98.6 fl (80-100); Mean Platelet Volume 10.2 fl (7.4-10.4); Platelet Count Result 156 k/mm3 (150-375); Red Blood Count 3.56 M/mm3 (4.6-6.20); Red Cell Distribution Width 12.4 % (11.5-14.5); White Blood Count 5.4 K/mm3 (4.5-10.0)
[2020-06-25 04:51] LABS: Alveolar/Arterial O2 Gradient 79.1 mmHg; Base Excess ABG 1.9 mEq/l (+/-2.0); Carboxyhemoglobin 0.3 % THb (0-2.0); Fractional Inspired Oxygen 30 %; HCO3 ABG 26.5 mEq/l (22.0-26.0); Methemoglobin ABG 0.4 %THb (0-1.5); Oxygen Saturation ABG 96.7 % (95.0-100.0); Oxyhemoglobin 95.4 % THb (90.0-100.0); PCO2 ABG 41.4 mmHg (35.0-45.0); PO2 ABG 86.2 mmHg (80.0-100.0); PO2 FiO2 Ratio Arterial Blood 2.87 %; Reduced Hemoglobin 3.9 %THb (0-5.0); Total Hemoglobin 12.6 g/dL (12.0-18.0); pH ABG 7.424 (7.350-7.450)
[2020-06-25 04:52] LABS: Arterial Blood Gas PEEP 8 cmH2O; Arterial Blood Gas Tidal Volume 450 ml; Arterial Blood Gas Vent Mode ASSIST CONTROL; Arterial Blood Gas Ventilator rate 16 /MIN; Device VENTILATOR; Modified Allen's Test Unable to perform; Site Drawn RIGHT RADIAL
[2020-06-25 04:54] LABS: Alanine Aminotransferase 45 U/L (4-50); Albumin Level 3.3 g/dL (3.5-5.1); Alkaline Phosphatase 40 U/L (38-126); Anion Gap 0 mmol/L (8-16); Aspartate Amino Transferase 22 U/L (17-59); Bilirubin,Total 0.1 mg/dL (0.2-1.3); Blood Urea Nitrogen 13 mg/dL (9-20); Calcium 8.2 mg/dL (8.4-10.2); Carbon Dioxide 30 mmol/L (22-30); Chloride 105 mmol/L (98-107); Creatine Kinase 47 U/L (55-170); Estimated CRCL calculation 202 ml/min; Estimated Glomerular Filt Rate > 60; Glucose 176 mg/dL (75-110); Magnesium 2.5 mg/dL (1.6-2.3); Potassium 4.1 mmol/L (3.4-5.0); Sodium 135 mmol/L (137-145)
[2020-06-25] MEDS: methylPREDNISolone SOD SUCC 125 MG VIAL 40 MG IV PUSH (06:00)
[2020-06-25] MEDS: ENOXAPARIN 40 MG/0.4 ML SYRINGE SUB-Q (08:03)
[2020-06-25] MEDS: PANTOPRAZOLE SODIUM IV 40 MG VIAL IV PUSH (08:03)
[2020-06-25] MEDS: THIAMINE HCL 100 MG TABLET PO (08:04)
[2020-06-25] MEDS: FOLIC ACID 1 MG TABLET PO (08:04)
[2020-06-25] MEDS: THERAPEUTIC MULTIVITAMINS/MINERALS TAB (*BKC) 1 TABLET PO (08:04)
[2020-06-25] MEDS: lisinopriL 20 MG TABLET 40 MG PO (08:05)
[2020-06-25] MEDS: polyethylene glycoL 3350 17 GM POWD.PACK PO (08:05)
[2020-06-25] MEDS: VENLAFAXINE HCL XR 75 MG CAP.ER.24H 150 MG PO (08:11)
[2020-06-25] MEDS: ALPRAZolam (*CRX) 0.5 MG TABLET 1 MG PO (08:11)
[2020-06-25] MEDS: PROPOFOL IV EMULSION 100 ML 26.64 MG IV CONT (08:57)
[2020-06-25] MEDS: LORazepam INJ (*CRX) 2 MG/ML VIAL 4 MG IV PUSH ×3 (10:22→13:43)
--- NOTE | 2020-06-25 11:57 | ECG_ITS ---
Measurements Intervals [place] Rate: 97 P: 59 WV: 193 QRS: -35 QRSD: 149 T: 61 QT: 376 QTc: 479 Interpretive Statements SINUS RHYTHM LEFT AXIS DEVIATION RIGHT BUNDLE BRANCH BLOCK BASELINE ARTIFACT- I, II, III, AVR, AVL, AVF, V1-V6 ABNORMAL ECG Electronically Signed On 06-25-2020 13:33:50 CDT by Rosalio Millan D.O.
--- NOTE | 2020-06-25 12:00 | WPDINTPN ---
Progress Note: A&P Assessment and Plan (1) Respiratory failure, acute: Qualifiers: Respiratory failure complication: hypoxia Qualified Code(s): J96.01 - Acute respiratory failure with hypoxia Code(s): J96.00 - Acute respiratory failure, unspecified whether with hypoxia or hypercapnia Status: Acute Assessment and Plan: Acute Respiratory failure secondary to alcohol withdrawal, difficult airway Chest x-ray shows atelectasis. Patient is afebrile and WBC is normal Continue full mechanical ventilation support to prevent hypoxemia/hypercarbia and end organ damage. We assessed patient's airway by checking cuff leak. Despite 7 size tube he had minimal leak on deflation of ETT cuff Will check CT soft tissue neck today continue steroids for another 24 hours and reassess tomorrow Bronchodilators Decrease tidal volume to 450 mL (2) Acute alcohol intoxication delirium with moderate or severe use disorder: Code(s): F10.221 - Alcohol dependence with intoxication delirium Status: Acute Assessment and Plan: Still having significant significant signs of alcohol withdrawal - Propfol discontinued due greenish discoloration of urine and bradycardia -continue Versed to max dose of 10 mg/hr - will d/c Xanax and start Valium 10 mg IV bid. Can be titrated up. - goal RASS of -4 to -5 -thiamine and folic acid (3) Difficult intubation: Code(s): T88.4XXA - Failed or difficult intubation, initial encounter Status: Acute Assessment and Plan: Complicated by air way edema, bleeding and failed cricothyrotomy. Failed cuff leak test today. - oral 7.0 ET tube placed by Anesthesia, appreciate their help and support. - Neck exploration with control of hemorrhage performed by ENT 06/22 showed bleeding right anterior jugular vein which was ligated - continue solumedrol 40 mg IV Q6h for another 24 hours and repeat cuff leak daily in the morning during rounds (4) Rhabdomyolysis: Code(s): M62.82 - Rhabdomyolysis Status: Acute Assessment and Plan: No indications of Rhabdomyolysis, mild elevation in CK on admission resolved. (5) Electrolyte abnormality: Code(s): E87.8 - Other disorders of electrolyte and fluid balance, not elsewhere classified Status: Acute Assessment and Plan: Improved after replacement yesterday Additional Plan DVT prophylaxis -Lovenox Stress ulcer prophylaxis - Protonix Nutrition -continue tube Feeds Code Status - Full Code Critical care time spent: 33 minutes This dictation may have been done utilizing a voice recognition system. Attempts have been made to correct errors. However, there may be uncorrected grammatical, spelling, and recognition errors present. Due to a high probability of clinically significant, life threatening deterioration, the patient required my highest level of preparedness to intervene emergently and I personally spent this critical care time directly and personally managing the patient. This critical care time included obtaining a history; examining the patient; pulse oximetry; ordering and review of studies; arranging urgent treatment with development of a management plan; evaluation of patient's response to treatment; frequent reassessment; and discussions with other providers. It was exclusive of separately billable procedures and treating other patients and teaching time. Please see Assessment and Plan section and the rest of the note for further information on patient assessment and treatment Subjective Date/time seen: 06/25/20 12:00 Interval history: The patient has been stable overnight. We attempted a cuff leak test with a size 7.0 ET tube and tidal volume of 450 by controlled mechanical ventilation. after deflating the cuff at the bedside with respiratory therapy his tidal volume dropped to 360 for a few seconds but later increased to between 400-450 indicating the presence of significant airway edema possibly.
[2020-06-25] MEDS: MIDAZOLAM 100MG/NS 100ML(*CRX) 100 MG/100 ML BAG 10 MG IV CONT (12:17)
[2020-06-25] MEDS: methylPREDNISolone SOD SUCC 40 MG VIAL IV PUSH ×3 (12:18→22:52)
[2020-06-25] MEDS: MIDAZOLAM HCL (*CRX) 2 MG/2 ML VIAL 5 MG IV PUSH (12:21)
[2020-06-25] MEDS: diazePAM INJ (*CRX) 10 MG/2 ML SYRINGE IV PUSH ×2 (12:35→18:10)
--- NOTE | 2020-06-25 13:00 | PC.NURSE ---
Dr. Loaiza notifed patient awake and very agitated. New orders received.
[2020-06-25] MEDS: PROPOFOL IV EMULSION 200 MG/20 ML VIAL 50 MG IV PUSH (13:10)
[2020-06-25] MEDS: PROPOFOL IV EMULSION 100 ML 28.85 MG IV CONT (13:10)
--- NOTE | 2020-06-25 13:10 | PM.IMPN ---
Progress Note: A&P Assessment and Plan (1) Delirium tremens: Code(s): F10.231 - Alcohol dependence with withdrawal delirium Status: Acute Assessment and Plan: transfer to ICU required intubation placed on versed gtt IV ativan PRN NGT feeds started 06/23 restart librium when able to tolerate defer cc management to lumber buyer (2) Alcohol withdrawal seizure: Code(s): F10.239 - Alcohol dependence with withdrawal, unspecified; R56.9 - Unspecified convulsions Status: Acute Assessment and Plan: last consumed EtOH evening, timeline fits with alcohol withdrawal seizure fall seizure precautions ativan (3) Elevated LFTs: Code(s): R79.89 - Other specified abnormal findings of blood chemistry Status: Acute Assessment and Plan: Etiology not clear, likely multifactorial. on statin, drinks alcohol daily, and had a seizure (4) Elevated creatine kinase: Code(s): R74.8 - Abnormal levels of other serum enzymes Status: Acute Assessment and Plan: Moderately elevated but not 5 times the upper limit of normal. Secondary to seizure activity. trend CPK (5) Hypertension: Code(s): I10 - Essential (primary) hypertension Status: Acute Assessment and Plan: Blood pressures were reviewed and they are pretty well controlled. Continue antihypertensives. (6) Mixed hyperlipidemia: Code(s): E78.2 - Mixed hyperlipidemia Status: Acute Assessment and Plan: Statin on hold at this time given elevated LFTs. (7) Anxiety: Code(s): F41.9 - Anxiety disorder, unspecified Status: Acute Assessment and Plan: Patient has had increase in stress recently as per HPI. Continue venlafaxine. (8) Alcohol abuse: Code(s): F10.10 - Alcohol abuse, uncomplicated Status: Acute Assessment and Plan: cont CIWA protocol cont thiamine, folic acid, and multivitamin supplementation (9) Difficult intubation: Code(s): T88.4XXA - Failed or difficult intubation, initial encounter Status: Acute Assessment and Plan: difficult airway patient's airway assessed by checking cuff leak. Despite 7 size tube he had minimal leak on deflation of ETT cuff Interrelated Special Education Teacher checking CT soft tissue neck today continue steroids for another 24 hours will reassess tomorrow (10) Respiratory failure, acute: Qualifiers: Respiratory failure complication: hypoxia Qualified Code(s): J96.01 - Acute respiratory failure with hypoxia Code(s): J96.00 - Acute respiratory failure, unspecified whether with hypoxia or hypercapnia Status: Acute Assessment and Plan: secondary to acute severe EtOH withdrawal Continue full mechanical ventilation support to prevent hypoxemia/hypercarbia and end organ damage. Bronchodilators Decrease tidal volume to 450 mL Time Spent With Patient Time with patient: Greater than 35 minutes Subjective Date/time seen: 06/25/20 11:10 Patient intubated off sedation following commands Review of Systems Review of Systems: ROS unobtainable: Yes unobtainable due to endotracheal tube Exam Narrative: Exam Narrative: GEN: NAD, cooperative HEENT: NCAT, ETT, EOMI Neck: no JVD Heart: S1S2 RRR Lungs: CTA B/l Abd: soft, NT, ND, bowel sounds normoactive Ext: moves all, no cyanosis, no clubbing, no edema Objective Data Vital Signs Vital Signs: Vital Signs - 24 hr 06/24/20 13:51 06/24/20 14:00 06/24/20 14:40 Temperature Pulse Rate 50 L 60 50 L Respiratory Rate 16 16 Blood Pressure 115/75 Pulse Oximetry 100 100 06/24/20 16:00 06/24/20 16:57 06/24/20 17:03 Temperature 97.5 F L Pulse Rate 50 L 50 L 44 L Respiratory Rate 16 16 Blood Pressure 115/64 Pulse Oximetry 100 100 06/24/20 18:00 06/24/20 18:21 06/24/20 20:00 Temperature 98.3 F Pulse Rate 67 70 62 Respiratory Rate 18 18 16 Blood Pressure 125/84
--- NOTE | 2020-06-25 13:12 | PCDIET ---
Nutrition Follow-Up Complete: Nutrition Diagnosis: Inadequate oral intake related to oral intubation as evidenced by NPO status. Nutrition Goal: Patient to meet estimated nutritional needs. Goal in progress. Patient tolerating Jevity 1.2 at 50mL/hr goal rate with 100mL water flush every 4 hours. Residuals less than 200mL documented. Recommend increase to 70mL/hr Jevity 1.2 once Propofol has been weaned. Last recorded weight is 120.2 kg which is increased from last review. Bowel Motility: No documented BM as of yet. If medically appropriate, would consider medication to promote BM. Labs Reviewed: Hgb (11.9), Hct (35.1), Glu (176), Na (135), Alb (3.3), Ca (8.2) Meds Noted: Folic Acid, Protonix, Lisinopril, Miralax, Solu Medrol, MVI/minerals, Thiamine, Propofol (rate of 33.3mL/hr provides 879kcal per day) Additional Notes: No pressure sores documented. Will continue to monitor with same goal. Nutrition Monitoring and Evaluation: Follow up every Sunday/Sunday.
[2020-06-25] MEDS: PROPOFOL IV EMULSION 100 ML 36.06 MG IV CONT ×4 (15:32→23:58)
[2020-06-25] MEDS: MIDAZOLAM 100MG/NS 100ML(*CRX) 100 MG/100 ML BAG 8 MG IV CONT (22:46)
[2020-06-26] VITALS (31 sets, daily range): BP systolic 125–196; BP diastolic 75–104; PULSE 44–66; RESP 16–18; TEMP 36.3–36.8; O2SAT 93–98
[2020-06-26] MEDS: PROPOFOL IV EMULSION 100 ML 36.06 MG IV CONT ×5 (02:49→18:23)
[2020-06-26 04:58] LABS: Base Excess ABG 4.5 mEq/l (+/-2.0); Carboxyhemoglobin 0.3 % THb (0-2.0); Fractional Inspired Oxygen 30 %; HCO3 ABG 29.5 mEq/l (22.0-26.0); Methemoglobin ABG 0.3 %THb (0-1.5); Modified Allen's Test Pass; Oxygen Content ABG 17.1 %vol (16.0-22.0); Oxygen Saturation ABG 96.3 % (95.0-100.0); Oxyhemoglobin 94.9 % THb (90.0-100.0); PCO2 ABG 45.2 mmHg (35.0-45.0); PO2 ABG 81.8 mmHg (80.0-100.0); PO2 FiO2 Ratio Arterial Blood 2.73 %; Reduced Hemoglobin 4.5 %THb (0-5.0); Site Drawn LEFT RADIAL; Total Hemoglobin 12.8 g/dL (12.0-18.0); pH ABG 7.432 (7.350-7.450)
[2020-06-26 04:59] LABS: Arterial Blood Gas PEEP 8 cmH2O; Arterial Blood Gas Tidal Volume 450 ml; Arterial Blood Gas Vent Mode CMV; Arterial Blood Gas Ventilator rate 16 /MIN; Device VENTILATOR
[2020-06-26] MEDS: methylPREDNISolone SOD SUCC 40 MG VIAL IV PUSH ×2 (05:49→12:48)
[2020-06-26 06:27] LABS: Hemoglobin 11.6 g/dL (14.0-18.0); Mean Corpuscular HGB Conc 34.1 g/dl (32-36); Mean Corpuscular Hemoglobin 33.2 pg (26-34); Mean Corpuscular Volume 97.4 fl (80-100); Mean Platelet Volume 10.2 fl (7.4-10.4); Platelet Count Result 197 k/mm3 (150-375); Red Blood Count 3.49 M/mm3 (4.6-6.20); Red Cell Distribution Width 12.3 % (11.5-14.5); White Blood Count 5.4 K/mm3 (4.5-10.0)
[2020-06-26 06:43] LABS: Alanine Aminotransferase 47 U/L (4-50); Albumin Level 3.2 g/dL (3.5-5.1); Alkaline Phosphatase 37 U/L (38-126); Anion Gap 4 mmol/L (8-16); Aspartate Amino Transferase 31 U/L (17-59); Bilirubin,Total 0.3 mg/dL (0.2-1.3); Blood Urea Nitrogen 14 mg/dL (9-20); Carbon Dioxide 29 mmol/L (22-30); Chloride 102 mmol/L (98-107); Creatine Kinase 27 U/L (55-170); Estimated CRCL calculation 205 ml/min; Estimated Glomerular Filt Rate > 60; Glucose 166 mg/dL (75-110); Magnesium 2.4 mg/dL (1.6-2.3); Potassium 4.1 mmol/L (3.4-5.0); Sodium 135 mmol/L (137-145)
[2020-06-26] MEDS: VENLAFAXINE HCL XR 75 MG CAP.ER.24H 150 MG PO (08:00)
--- NOTE | 2020-06-26 08:34 | WPDINTPN ---
Progress Note: A&P Assessment and Plan (1) Respiratory failure, acute: Qualifiers: Respiratory failure complication: hypoxia Qualified Code(s): J96.01 - Acute respiratory failure with hypoxia Code(s): J96.00 - Acute respiratory failure, unspecified whether with hypoxia or hypercapnia Status: Acute Assessment and Plan: Acute Respiratory failure secondary to alcohol withdrawal, very difficult airway Chest x-ray shows airspace opacities of the mid and lower lung zones with improvement at the right lung base, consistent with atelectasis versus pneumonia.. Patient is afebrile and WBC is normal Continue full mechanical ventilation support to prevent hypoxemia/hypercarbia and end organ damage. We assessed patient's airway by checking cuff leak. Despite 7 size tube he had minimal leak on deflation of ETT cuff CT soft tissue 06/24/2020 showed mild right tonsillar swelling otherwise unremarkable. Continue steroids Continue Bronchodilators Low tidal volume strategy (2) Acute alcohol intoxication delirium with moderate or severe use disorder: Code(s): F10.221 - Alcohol dependence with intoxication delirium Status: Acute Assessment and Plan: Still having significant significant signs of alcohol withdrawal - Propfol was restarted yesterday as patient was very agitated and difficult to sedate. -continue Versed to max dose of 10 mg/hr -p.r.n. Ativan and fentanyl on board - goal RASS of -4 to -5 -thiamine and folic acid (3) Difficult intubation: Code(s): T88.4XXA - Failed or difficult intubation, initial encounter Status: Acute Assessment and Plan: Complicated by air way edema, bleeding and failed cricothyrotomy. Failed cuff leak test - oral 7.0 ET tube placed by Anesthesia, appreciate their help and support. - Neck exploration with control of hemorrhage performed by ENT 06/22 showed bleeding right anterior jugular vein which was ligated - continue solumedrol 40 mg IV Q6h for another 24 hours and repeat cuff leak daily in the morning during rounds (4) Rhabdomyolysis: Code(s): M62.82 - Rhabdomyolysis Status: Acute Assessment and Plan: No indications of Rhabdomyolysis, mild elevation in CK on admission resolved. (5) Electrolyte abnormality: Code(s): E87.8 - Other disorders of electrolyte and fluid balance, not elsewhere classified Status: Acute Assessment and Plan: Improved after replacement Additional Plan DVT prophylaxis -Lovenox Stress ulcer prophylaxis - Protonix Nutrition -continue tube Feeds Discussed with patient's mother and updated with patient's condition and plan of care. I answered all questions Code Status - Full Code Critical care time spent: 34 minutes This dictation may have been done utilizing a voice recognition system. Attempts have been made to correct errors. However, there may be uncorrected grammatical, spelling, and recognition errors present. Due to a high probability of clinically significant, life threatening deterioration, the patient required my highest level of preparedness to intervene emergently and I personally spent this critical care time directly and personally managing the patient. This critical care time included obtaining a history; examining the patient; pulse oximetry; ordering and review of studies; arranging urgent treatment with development of a management plan; evaluation of patient's response to treatment; frequent reassessment; and discussions with other providers. It was exclusive of separately billable procedures and treating other patients and teaching time. Please see Assessment and Plan section and the rest of the note for further information on patient assessment and treatment Subjective Date/time seen: 06/26/20 08:34 Interval history: 06/26/2020: Patient seen and examined this morning in the ICU, remains intubated on CMV mode of ventilation peep of 8, 30% FiO2. Patient is sedated w
--- NOTE | 2020-06-26 09:03 | PM.IMPN ---
Progress Note: A&P Assessment and Plan (1) Delirium tremens: Code(s): F10.231 - Alcohol dependence with withdrawal delirium Status: Acute Assessment and Plan: continue to support in ICU Versed drip IV Ativan PRN NGT feeds started 06/23 (2) Alcohol withdrawal seizure: Qualifiers: Complication of substance-induced condition: with delirium Qualified Code(s): F10.231 - Alcohol dependence with withdrawal delirium; R56.9 - Unspecified convulsions Code(s): F10.239 - Alcohol dependence with withdrawal, unspecified; R56.9 - Unspecified convulsions Status: Acute Assessment and Plan: last consumed EtOH 06/20 evening, so timeline fits with alcohol withdrawal seizure (3) Elevated LFTs: Code(s): R79.89 - Other specified abnormal findings of blood chemistry Status: Acute Assessment and Plan: Etiology not clear, likely multifactorial. on statin, drinks alcohol daily (4) Elevated creatine kinase: Code(s): R74.8 - Abnormal levels of other serum enzymes Status: Acute Assessment and Plan: Moderately elevated Secondary to seizure activity. (5) Hypertension: Qualifiers: Hypertension type: unspecified Qualified Code(s): I10 - Essential (primary) hypertension Code(s): I10 - Essential (primary) hypertension Status: Acute Assessment and Plan: Continue to monitor and treat PRN in ICU (6) Alcohol abuse: Code(s): F10.10 - Alcohol abuse, uncomplicated Status: Acute Assessment and Plan: Would benefit from inpatient program if he will participate (7) Respiratory failure, acute: Qualifiers: Respiratory failure complication: hypoxia Qualified Code(s): J96.01 - Acute respiratory failure with hypoxia Code(s): J96.00 - Acute respiratory failure, unspecified whether with hypoxia or hypercapnia Status: Acute Assessment and Plan: secondary to acute severe EtOH withdrawal Continue full mechanical ventilation support (8) Difficult intubation: Qualifiers: Encounter type: sequela Qualified Code(s): T88.4XXS - Failed or difficult intubation, sequela Code(s): T88.4XXA - Failed or difficult intubation, initial encounter Status: Acute Assessment and Plan: difficult airway patient's airway assessed by checking cuff leak. 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 Remains sedated and ventilated in ICU. Review of Systems Review of Systems: ROS unobtainable: Yes unobtainable due to medical condition Exam Narrative: Exam Narrative: HEENT: PERRL, sclerae nonicteric, pharyngeal mucosa pink and intact NECK: No JVD CHEST: Clear to auscultation. Normal effort. HEART: NL S1/S2, regular, no murmur ABDOMEN: BS+, soft, nontender, no mass, no bruits EXTREMITIES: No cyanosis, edema, or clubbing NEUROLOGIC: CN intact and symmetric to inspection. MUSCULOSKELETAL: Tone symmetric. PSYCH: Sedated Objective Data Vital Signs Vital Signs: Vital Signs - 24 hr 06/25/20 10:00 06/25/20 10:49 06/25/20 11:06 Temperature Pulse Rate 47 L 66 74 Respiratory Rate 16 22 H Blood Pressure 127/86 Pulse Oximetry 96 100 06/25/20 12:00 06/25/20 12:17 06/25/20 13:10 Temperature 98.6 F Pulse Rate 95 101 H 110 H Respiratory Rate 24 H 24 H 35 H Blood Pressure 197/114 H Pulse Oximetry 100 06/25/20 13:39 06/25/20 13:51 06/25/20 14:00 Temperature Pulse Rate 100 72 69 Respiratory Rate 29 H 17 Blood Pressure 128/82 Pulse Oximetry 91 92 06/25/20 15:32 06/25/20 16:00 06/25/20 17:23 Temperature 98.9 F Pulse Rate 61 55 L 57 L Respiratory Rate 16 16 Blood Pressure 112/70 Pulse Oximetry 95 9
[2020-06-26] MEDS: diazePAM INJ (*CRX) 10 MG/2 ML SYRINGE IV PUSH (09:19)
[2020-06-26] MEDS: FOLIC ACID 1 MG TABLET PO (09:20)
[2020-06-26] MEDS: lisinopriL 20 MG TABLET 40 MG PO (09:20)
[2020-06-26] MEDS: THIAMINE HCL 100 MG TABLET PO (09:20)
[2020-06-26] MEDS: PANTOPRAZOLE SODIUM IV 40 MG VIAL IV PUSH (09:20)
[2020-06-26] MEDS: polyethylene glycoL 3350 17 GM POWD.PACK PO (09:20)
[2020-06-26] MEDS: ENOXAPARIN 40 MG/0.4 ML SYRINGE SUB-Q (09:20)
[2020-06-26] MEDS: THERAPEUTIC MULTIVITAMINS/MINERALS TAB (*BKC) 1 TABLET PO (09:20)
[2020-06-26] MEDS: PROPOFOL IV EMULSION 100 ML 28.85 MG IV CONT (12:47)
[2020-06-26] MEDS: MIDAZOLAM 100MG/NS 100ML(*CRX) 100 MG/100 ML BAG 6 MG IV CONT (12:48)
[2020-06-26] MEDS: MIDAZOLAM HCL (*CRX) 2 MG/2 ML VIAL 5 MG IV PUSH (14:10)
[2020-06-26] MEDS: diazePAM INJ (*CRX) 10 MG/2 ML SYRINGE 20 MG IV PUSH (16:36)
[2020-06-26] MEDS: fentaNYL CITRATE INJ (*CRX) 100 MCG/2 ML VIAL 50 MCG IV PUSH (19:24)
[2020-06-26] MEDS: MIDAZOLAM 100MG/NS 100ML(*CRX) 100 MG/100 ML BAG 9 MG IV CONT (21:13)
[2020-06-26] MEDS: PROPOFOL IV EMULSION 100 ML 33.35 MG IV CONT (21:16)
[2020-06-27] VITALS (32 sets, daily range): BP systolic 87–151; BP diastolic 55–88; PULSE 47–122; RESP 14–28; TEMP 36.5–38.4; O2SAT 92–97
[2020-06-27] MEDS: PROPOFOL IV EMULSION 100 ML 33.35 MG IV CONT ×3 (00:35→09:43)
[2020-06-27] MEDS: fentaNYL CITRATE INJ (*CRX) 100 MCG/2 ML VIAL 50 MCG IV PUSH ×3 (04:02→19:55)
[2020-06-27 04:18] LABS: Hematocrit 38.8 % (42.0-52.0); Hemoglobin 12.8 g/dL (14.0-18.0); Mean Corpuscular Hemoglobin 33.1 pg (26-34); Mean Corpuscular Volume 100.3 fl (80-100); Mean Platelet Volume 10.5 fl (7.4-10.4); Platelet Count Result 160 k/mm3 (150-375); Red Blood Count 3.87 M/mm3 (4.6-6.20); Red Cell Distribution Width 12.3 % (11.5-14.5); White Blood Count 7.1 K/mm3 (4.5-10.0)
[2020-06-27 04:32] LABS: Alanine Aminotransferase 71 U/L (4-50); Albumin Level 3.3 g/dL (3.5-5.1); Alkaline Phosphatase 41 U/L (38-126); Anion Gap 4 mmol/L (8-16); Aspartate Amino Transferase 56 U/L (17-59); Bilirubin,Total 0.3 mg/dL (0.2-1.3); Blood Urea Nitrogen 14 mg/dL (9-20); Calcium 8.2 mg/dL (8.4-10.2); Carbon Dioxide 30 mmol/L (22-30); Chloride 103 mmol/L (98-107); Creatine Kinase 26 U/L (55-170); Estimated CRCL calculation 205 ml/min; Estimated Glomerular Filt Rate > 60; Glucose 123 mg/dL (75-110); Magnesium 2.4 mg/dL (1.6-2.3); Potassium 3.7 mmol/L (3.4-5.0); Sodium 137 mmol/L (137-145)
[2020-06-27 05:07] LABS: Base Excess ABG 5.7 mEq/l (+/-2.0); Carboxyhemoglobin 0.3 % THb (0-2.0); Fractional Inspired Oxygen 30 %; HCO3 ABG 30.9 mEq/l (22.0-26.0); Methemoglobin ABG 0.4 %THb (0-1.5); Oxygen Content ABG 16.9 %vol (16.0-22.0); Oxygen Saturation ABG 93.7 % (95.0-100.0); Oxyhemoglobin 91.9 % THb (90.0-100.0); PCO2 ABG 46.9 mmHg (35.0-45.0); PO2 ABG 66.8 mmHg (80.0-100.0); PO2 FiO2 Ratio Arterial Blood 2.23 %; Reduced Hemoglobin 7.4 %THb (0-5.0); Total Hemoglobin 13.1 g/dL (12.0-18.0); pH ABG 7.436 (7.350-7.450)
[2020-06-27 05:08] LABS: Arterial Blood Gas Vent Mode CMV; Arterial Blood Gas Ventilator rate 16 /MIN; Device VENTILATOR; Modified Allen's Test Pass; Site Drawn LEFT RADIAL
[2020-06-27 05:09] LABS: Arterial Blood Gas PEEP 8 cmH2O; Arterial Blood Gas Tidal Volume 450 ml
--- NOTE | 2020-06-27 08:13 | WPDINTPN ---
Progress Note: A&P Assessment and Plan (1) Respiratory failure, acute: Qualifiers: Respiratory failure complication: hypoxia Qualified Code(s): J96.01 - Acute respiratory failure with hypoxia Code(s): J96.00 - Acute respiratory failure, unspecified whether with hypoxia or hypercapnia Status: Acute Assessment and Plan: Acute Respiratory failure secondary to alcohol withdrawal, very difficult airway Chest x-ray shows airspace opacities of the mid and lower lung zones with improvement at the right lung base, consistent with atelectasis versus pneumonia.. Patient is afebrile and WBC is normal Continue full mechanical ventilation support to prevent hypoxemia/hypercarbia and end organ damage. We assessed patient's airway by checking cuff leak again today. Despite 7 size tube he had minimal leak on deflation of ETT cuff CT soft tissue 06/24/2020 showed mild right tonsillar swelling otherwise unremarkable. Continue steroids. May need tracheostomy Continue Bronchodilators Low tidal volume strategy Advance ET tube by 3 cm (2) Acute alcohol intoxication delirium with moderate or severe use disorder: Code(s): F10.221 - Alcohol dependence with intoxication delirium Status: Acute Assessment and Plan: Still having significant significant signs of alcohol withdrawal - Propfol was restarted yesterday as patient was very agitated and difficult to sedate. -continue Versed to max dose of 10 mg/hr -also on Valium which I will switch to per tube -p.r.n. fentanyl on board - goal RASS of -4 to -5 -thiamine and folic acid (3) Difficult intubation: Qualifiers: Encounter type: sequela Qualified Code(s): T88.4XXS - Failed or difficult intubation, sequela Code(s): T88.4XXA - Failed or difficult intubation, initial encounter Status: Acute Assessment and Plan: Complicated by air way edema, bleeding and failed cricothyrotomy. Failed cuff leak test - oral 7.0 ET tube placed by Anesthesia, appreciate their help and support. - Neck exploration with control of hemorrhage performed by ENT 06/22 showed bleeding right anterior jugular vein which was ligated -no leak around cuff deflation. Patient has completed 2 courses of Solu-Medrol (4) Rhabdomyolysis: Code(s): M62.82 - Rhabdomyolysis Status: Acute Assessment and Plan: No indications of Rhabdomyolysis, mild elevation in CK on admission resolved. (5) Electrolyte abnormality: Code(s): E87.8 - Other disorders of electrolyte and fluid balance, not elsewhere classified Status: Acute Assessment and Plan: Improved after replacement Additional Plan DVT prophylaxis -Lovenox Stress ulcer prophylaxis - Protonix Nutrition -continue tube Feeds Discussed with patient's mother and updated with patient's condition and plan of care. I answered all questions Code Status - Full Code Critical care time spent: 30 minutes This dictation may have been done utilizing a voice recognition system. Attempts have been made to correct errors. However, there may be uncorrected grammatical, spelling, and recognition errors present. Due to a high probability of clinically significant, life threatening deterioration, the patient required my highest level of preparedness to intervene emergently and I personally spent this critical care time directly and personally managing the patient. This critical care time included obtaining a history; examining the patient; pulse oximetry; ordering and review of studies; arranging urgent treatment with development of a management plan; evaluation of patient's response to treatment; frequent reassessment; and discussions with other providers. It was exclusive of separately billable procedures and treating other patients and teaching time. Please see Assessment and Plan section and the rest of the note for further information on patient assessment and treatment Subjective Date/time seen:
[2020-06-27] MEDS: MIDAZOLAM 100MG/NS 100ML(*CRX) 100 MG/100 ML BAG 9 MG IV CONT (08:39)
[2020-06-27] MEDS: diazePAM (*CRX) 5 MG TABLET 20 MG PO ×2 (08:40→20:10)
[2020-06-27] MEDS: THERAPEUTIC MULTIVITAMINS/MINERALS TAB (*BKC) 1 TABLET PO (08:40)
[2020-06-27] MEDS: polyethylene glycoL 3350 17 GM POWD.PACK PO (08:40)
[2020-06-27] MEDS: THIAMINE HCL 100 MG TABLET PO (08:41)
[2020-06-27] MEDS: FOLIC ACID 1 MG TABLET PO (08:41)
--- NOTE | 2020-06-27 08:45 | PM.IMPN ---
Progress Note: A&P Assessment and Plan (1) Delirium tremens: Code(s): F10.231 - Alcohol dependence with withdrawal delirium Status: Acute Assessment and Plan: continue to support in ICU Continue to wean sedation as tolerated IV Ativan PRN NGT feeds started 06/23 (2) Alcohol withdrawal seizure: Qualifiers: Complication of substance-induced condition: with delirium Qualified Code(s): F10.231 - Alcohol dependence with withdrawal delirium; R56.9 - Unspecified convulsions Code(s): F10.239 - Alcohol dependence with withdrawal, unspecified; R56.9 - Unspecified convulsions Status: Acute Assessment and Plan: last consumed EtOH 06/20 evening, so timeline fits with alcohol withdrawal seizure (3) Elevated LFTs: Code(s): R79.89 - Other specified abnormal findings of blood chemistry Status: Acute Assessment and Plan: Etiology not clear, likely multifactorial. on statin, drinks alcohol daily (4) Elevated creatine kinase: Code(s): R74.8 - Abnormal levels of other serum enzymes Status: Acute Assessment and Plan: Moderately elevated Secondary to seizure activity. (5) Hypertension: Qualifiers: Hypertension type: unspecified Qualified Code(s): I10 - Essential (primary) hypertension Code(s): I10 - Essential (primary) hypertension Status: Acute Assessment and Plan: Continue to monitor and treat PRN in ICU (6) Alcohol abuse: Code(s): F10.10 - Alcohol abuse, uncomplicated Status: Acute Assessment and Plan: Would benefit from inpatient program if he will participate (7) Respiratory failure, acute: Qualifiers: Respiratory failure complication: hypoxia Qualified Code(s): J96.01 - Acute respiratory failure with hypoxia Code(s): J96.00 - Acute respiratory failure, unspecified whether with hypoxia or hypercapnia Status: Acute Assessment and Plan: secondary to acute severe EtOH withdrawal Continue full mechanical ventilation support (8) Difficult intubation: Qualifiers: Encounter type: sequela Qualified Code(s): T88.4XXS - Failed or difficult intubation, sequela Code(s): T88.4XXA - Failed or difficult intubation, initial encounter Status: Acute Assessment and Plan: difficult airway patient's airway assessed by checking cuff leak. 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 Remains ventilated in ICU. Less sedated. Review of Systems Review of Systems: ROS unobtainable: Yes unobtainable due to medical condition Exam Narrative: Exam Narrative: HEENT: PERRL, sclerae nonicteric, pharyngeal mucosa pink and intact NECK: No JVD CHEST: Clear to auscultation. Normal effort. HEART: NL S1/S2, regular, no murmur ABDOMEN: BS+, soft, nontender, no mass, no bruits EXTREMITIES: No cyanosis, edema, or clubbing NEUROLOGIC: CN intact and symmetric to inspection. MUSCULOSKELETAL: Tone and strength symmetric. PSYCH: Drowsy. Arouses easily. Follow simple commands. Objective Data Vital Signs Vital Signs: Vital Signs - 24 hr 06/26/20 09:45 06/26/20 10:00 06/26/20 11:04 Temperature Pulse Rate 56 L 49 L 57 L Respiratory Rate 18 18 Blood Pressure 156/88 H Pulse Oximetry 93 94 06/26/20 11:12 06/26/20 12:00 06/26/20 13:55 Temperature 97.9 F Pulse Rate 59 L 66 53 L Respiratory Rate 18 Blood Pressure 196/101 H Pulse Oximetry 93 94 95 06/26/20 14:00 06/26/20 16:00 06/26/20 17:10 Temperature 97.7 F Pulse Rate 49 L 49 L 49 L Respiratory Rate 16 16 Blood Pressure 180/100 H 177/104 H Pulse Oximetry 97 98 97 06/26/20 17:42 06/26/20 20:00 06/26/20 20:27 Temperature 97.3
[2020-06-27] MEDS: ENOXAPARIN 40 MG/0.4 ML SYRINGE SUB-Q (08:53)
[2020-06-27] MEDS: PANTOPRAZOLE SODIUM IV 40 MG VIAL IV PUSH (08:53)
[2020-06-27] MEDS: lisinopriL 20 MG TABLET 40 MG PO (10:39)
[2020-06-27] MEDS: PROPOFOL IV EMULSION 100 ML 29.64 MG IV CONT ×2 (13:20→15:54)
[2020-06-27] MEDS: ACETAMINOPHEN ELIXIR 325 MG/10.15 ML UDC 650 MG FEED TUBE ×2 (15:54→20:11)
[2020-06-27] MEDS: PROPOFOL IV EMULSION 100 ML 37.05 MG IV CONT ×2 (18:50→21:51)
[2020-06-27] MEDS: MIDAZOLAM 100MG/NS 100ML(*CRX) 100 MG/100 ML BAG 8 MG IV CONT (20:05)
[2020-06-28] VITALS (30 sets, daily range): BP systolic 90–103; BP diastolic 58–76; PULSE 71–102; RESP 16–23; TEMP 36.8–38.2; O2SAT 93–98
[2020-06-28] MEDS: ACETAMINOPHEN ELIXIR 325 MG/10.15 ML UDC 650 MG FEED TUBE ×3 (00:12→19:39)
[2020-06-28] MEDS: PROPOFOL IV EMULSION 100 ML 37.05 MG IV CONT ×3 (00:42→06:53)
[2020-06-28 04:24] LABS: Alveolar/Arterial O2 Gradient 94.2 mmHg; Base Excess ABG 3.1 mEq/l (+/-2.0); Carboxyhemoglobin 0.3 % THb (0-2.0); Fractional Inspired Oxygen 30 %; HCO3 ABG 26.5 mEq/l (22.0-26.0); Methemoglobin ABG 0.3 %THb (0-1.5); Oxygen Content ABG 17.6 %vol (16.0-22.0); Oxygen Saturation ABG 96.3 % (95.0-100.0); Oxyhemoglobin 95.2 % THb (90.0-100.0); PCO2 ABG 36.3 mmHg (35.0-45.0); PO2 ABG 77.1 mmHg (80.0-100.0); PO2 FiO2 Ratio Arterial Blood 2.57 %; Reduced Hemoglobin 4.2 %THb (0-5.0); Total Hemoglobin 13.1 g/dL (12.0-18.0); pH ABG 7.481 (7.350-7.450)
[2020-06-28 04:25] LABS: Device VENTILATOR; Modified Allen's Test Unable to perform; Site Drawn LEFT RADIAL
[2020-06-28 04:26] LABS: Arterial Blood Gas PEEP 8 cmH2O; Arterial Blood Gas Tidal Volume 450 ml; Arterial Blood Gas Vent Mode ASSIST CONTROL; Arterial Blood Gas Ventilator rate 16 /MIN
[2020-06-28 04:46] LABS: Hemoglobin 12.6 g/dL (14.0-18.0); Mean Corpuscular HGB Conc 33.2 g/dl (32-36); Mean Corpuscular Volume 99.5 fl (80-100); Mean Platelet Volume 9.5 fl (7.4-10.4); Platelet Count Result 186 k/mm3 (150-375); Red Blood Count 3.82 M/mm3 (4.6-6.20); Red Cell Distribution Width 12.6 % (11.5-14.5); White Blood Count 7.9 K/mm3 (4.5-10.0)
[2020-06-28 05:00] LABS: Alanine Aminotransferase 74 U/L (4-50); Albumin Level 3.1 g/dL (3.5-5.1); Alkaline Phosphatase 42 U/L (38-126); Anion Gap 5 mmol/L (8-16); Aspartate Amino Transferase 38 U/L (17-59); Bilirubin,Total 0.5 mg/dL (0.2-1.3); Blood Urea Nitrogen 20 mg/dL (9-20); Calcium 7.9 mg/dL (8.4-10.2); Carbon Dioxide 28 mmol/L (22-30); Chloride 101 mmol/L (98-107); Creatine Kinase 65 U/L (55-170); Estimated CRCL calculation 129 ml/min; Estimated Glomerular Filt Rate > 60; Glucose 104 mg/dL (75-110); Magnesium 2.4 mg/dL (1.6-2.3); Potassium 3.4 mmol/L (3.4-5.0); Sodium 134 mmol/L (137-145); Triglycerides 127 mg/dL (<150)
[2020-06-28] MEDS: MIDAZOLAM 100MG/NS 100ML(*CRX) 100 MG/100 ML BAG 8 MG IV CONT ×2 (07:51→20:56)
[2020-06-28] MEDS: ENOXAPARIN 40 MG/0.4 ML SYRINGE SUB-Q (08:28)
[2020-06-28] MEDS: polyethylene glycoL 3350 17 GM POWD.PACK PO (08:28)
[2020-06-28] MEDS: FOLIC ACID 1 MG TABLET PO (08:29)
[2020-06-28] MEDS: THIAMINE HCL 100 MG TABLET PO (08:29)
[2020-06-28] MEDS: diazePAM (*CRX) 5 MG TABLET 20 MG PO ×2 (08:29→19:40)
[2020-06-28] MEDS: THERAPEUTIC MULTIVITAMINS/MINERALS TAB (*BKC) 1 TABLET PO (08:29)
[2020-06-28] MEDS: PANTOPRAZOLE SODIUM IV 40 MG VIAL IV PUSH (08:29)
[2020-06-28] MEDS: PROPOFOL IV EMULSION 100 ML 33.35 MG IV CONT ×2 (09:13→21:53)
--- NOTE | 2020-06-28 10:15 | PCRCNOTE ---
Cuff leak done. Air was removed from ET tube, Vt of 445-490s. Cuff reinflated.
[2020-06-28] MEDS: AMPICILLIN SULB 3 GM/NS 100 ML 3 GM/100 ML VIAL IVPB ×3 (10:44→19:40)
--- NOTE | 2020-06-28 10:51 | PCDIET ---
ICU Rounding Note: Patient tolerating Jevity 1.2 at 50mL/hr with 100mL water flush every 4 hours. Recommend keeping tube feeding rate at 50mL/hr now that Propofol has been resumed. Last recorded weight is 128.5kg which is increased from last review. +I/O. Bowel Motility: No BM. +BS per RN. Discussed with MD during rounds. Patient on daily Miralax. No new orders at this time. Labs Reviewed: Hgb (12.6), Hct (38.0), Na (134), Alb (3.1), TG (127), Mg (2.4) Meds Noted: MVI/minerals, Lasix, KCl, Protonix, Unasyn, Miralax, Fentanyl, Folic Acid, Thiamine, Lisinopril, Versed, Propofol (rate of 36.06mL/hr provides 951kcal per day) Additional Notes: No documented pressure sores. Following daily in ICU rounds. Assessing/reassessing every Sunday/Sunday.
--- NOTE | 2020-06-28 11:07 | WPDINTPN ---
Progress Note: A&P Assessment and Plan (1) Respiratory failure, acute: Qualifiers: Respiratory failure complication: hypoxia Qualified Code(s): J96.01 - Acute respiratory failure with hypoxia Code(s): J96.00 - Acute respiratory failure, unspecified whether with hypoxia or hypercapnia Status: Acute Assessment and Plan: Acute Respiratory failure secondary to alcohol withdrawal, very difficult airway Chest x-ray shows airspace opacities of the mid and lower lung zones with improvement at the right lung base, consistent with atelectasis versus pneumonia.. Patient is afebrile and WBC is normal Continue full mechanical ventilation support to prevent hypoxemia/hypercarbia and end organ damage. We assessed patient's airway by checking cuff leak again today. Despite 7 size tube he had minimal leak on deflation of ETT cuff CT soft tissue 06/24/2020 showed mild right tonsillar swelling otherwise unremarkable. Continue steroids. May need tracheostomy Continue Bronchodilators Low tidal volume strategy Advance ET tube by 3 cm (2) Acute alcohol intoxication delirium with moderate or severe use disorder: Code(s): F10.221 - Alcohol dependence with intoxication delirium Status: Acute Assessment and Plan: Still having significant significant signs of alcohol withdrawal - Propfol was restarted yesterday as patient was very agitated and difficult to sedate. -continue Versed to max dose of 10 mg/hr -also on Valium which I will switch to per tube -p.r.n. fentanyl on board - goal RASS of -4 to -5 -thiamine and folic acid (3) Difficult intubation: Qualifiers: Encounter type: sequela Qualified Code(s): T88.4XXS - Failed or difficult intubation, sequela Code(s): T88.4XXA - Failed or difficult intubation, initial encounter Status: Acute Assessment and Plan: Complicated by air way edema, bleeding and failed cricothyrotomy. Failed cuff leak test - oral 7.0 ET tube placed by Anesthesia, appreciate their help and support. - Neck exploration with control of hemorrhage performed by ENT 06/22 showed bleeding right anterior jugular vein which was ligated -no leak around cuff deflation. Patient has completed 2 courses of Solu-Medrol. Further systemic steroids would not be helpful at this stage. - I spoke to Dr. Guevara this morning the plan is to perform a tracheostomy on if there is no significant cuff leak by tomorrow (4) Rhabdomyolysis: Code(s): M62.82 - Rhabdomyolysis Status: Acute Assessment and Plan: No indications of Rhabdomyolysis, mild elevation in CK on admission resolved. (5) Electrolyte abnormality: Code(s): E87.8 - Other disorders of electrolyte and fluid balance, not elsewhere classified Status: Acute Assessment and Plan: Improved after replacement (6) Fever: Code(s): R50.9 - Fever, unspecified Status: Acute Assessment and Plan: No obvious source of infection. CXR shows possible atelectasis but cannot rule out aspiration pneumonia. Unasyn started prophylactically at 3 gm IV Q6h. Sputum, blood and urine cultures are pending. WBC is normal Subjective Date/time seen: 06/28/20 11:07 Interval history: He spiked fevers last night of up to 38.4. Blood pressure has at times been borderline low but improves with decreasing sedation medications. He continues to have good urine output and has no signs of organ perfusion issues. This morning we performed another cuff leak test and unfortunately no significant cuff leak was seen upon deflation. Review of Systems Review of Systems: All systems reviewed & are unremarkable except as noted in HPI and below Exam Narrative: Exam Narrative: General: Pt is sedated, intubated and on mechanical ventilation Lungs/Chest: Trachea central Coarse BS B/L, No crackles or wheezing. No leak around ETT after deflation of cuff Cardiac: RRR. Normal S1 S2. No murmurs Circulation:
[2020-06-28] MEDS: FUROSEMIDE INJ 40 MG/4 ML VIAL 20 MG IV PUSH (11:09)
[2020-06-28] MEDS: POTASSIUM CHLORIDE 20 MEQ PACKET (FOR LIQUID) 40 MEQ FEED TUBE (11:09)
[2020-06-28] MEDS: PROPOFOL IV EMULSION 100 ML 22.23 MG IV CONT (12:16)
--- NOTE | 2020-06-28 14:29 | PM.IMPN ---
Progress Note: A&P Assessment and Plan (1) Alcohol withdrawal seizure: Qualifiers: Complication of substance-induced condition: with delirium Qualified Code(s): F10.231 - Alcohol dependence with withdrawal delirium; R56.9 - Unspecified convulsions Code(s): F10.239 - Alcohol dependence with withdrawal, unspecified; R56.9 - Unspecified convulsions Status: Acute Assessment and Plan: 06/24/20 16:34 Patient has not had anything to drink since evening, timeline fits with alcohol withdrawal seizure. Initiate seizure precautions. He has been started on scheduled Librium with Ativan available as needed. 06/21/20 15:09 Patient is a 50-year-old male with history of alcohol abuse and his last drink for on June 17, however on SundayJune 20, while sitting on the couch talking on the phone and his her loud noise and patient was having seizure-like activity lasting 3 minutes and patient was brought to the emergency department for further evaluate, his alcohol level was 0, patient is on benzodiazepine, while in the hospital patient has not any episode, patient was seen by Neurology and had a EEG which was normal, patient is started on Librium 50 mg every 6 hours and Ativan as needed, will continue to monitor the patient and check electrolytes and supplement, if remains clinically stable may discharge the patient home tomorrow 06/22 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 by the recreation center director the patient was agitated and may be going into DTs patient was given 3 mg of added and 50 mg Librium however patient was not calming down and was transferred to ICU for close observation while in ICU patient went into DTs and was fighting agitated and wanted to leave patient was restrained, patient was given 32 mg of Ativan or close to an hour and Valium, patient kept fighting and agitated it was decided to intubate the patient, initial route sales trainee tried and was unsuccessful, anesthesiologist came in and patient was intubated, there was bleeding during the process and patient was seen ENT in the or as patient had bleeding veins and was repaired currently patient on versed drip and propfol drip as needed. 06/23 Patient remains intubated and sedated, plan is monitor on vent and sedation with versed and propfol as needed which is on hold, patient is being treated with methylprednisone, today will start NGtube feeding and possible reassess tomorrow and and further recommendation to follow. 06/24 patient has remained intubated and sedated requiring versed as well as propfol patient is being treated with treated with methylprednisone, started NGtube feeding on 06/23 and possible reassess tomorrow and and further recommendation to follow. Appreciate route sales trainee 06/28/20 14:29 patient has remained intubated and sedated requiring versed as well as propfol patient was treated with treated with methylprednisone, started NGtube feeding on 06/23 still requiring sedation with Versed and propfol was resumed on 06/27 is patient is showing agitation and withdrawal of alcohol, it has been 7 days unable to wean the patient off ventilator route sales trainee recommending tract an ENT has been consulted further recommendation to follow. (2) Elevated LFTs: Code(s): R79.89 - Other specified abnormal findings of blood chemistry Status: Acute Assessment and Plan: Etiology not clear, but may be multifactorial. He was recently started back on a statin, drinks alcohol daily, and had a seizure today with perhaps mild rhabdomyolysis. Repeat LFTs in a.m.. (3) Elevated creatine kinase: Code(s): R74.8 - Abnormal levels of other serum enzymes Status: Acute Assessment and Plan: Moderately elevated but not 5 times the upper limit of normal. Secondary to seizure activity. Repeat CK in a.m.. (4) Hypertension: Qualifiers: Hypertension type: unspecified Qualified Code(s): I10 - Essential (primary) hypertension
[2020-06-28] MEDS: PROPOFOL IV EMULSION 100 ML 29.64 MG IV CONT ×2 (15:50→18:53)
[2020-06-28] MEDS: ROCURONIUM BROMIDE 50 MG/5 ML VIAL 100 MG IV PUSH (22:41)
[2020-06-29] VITALS (39 sets, daily range): BP systolic 90–122; BP diastolic 49–79; PULSE 58–114; RESP 16–29; TEMP 36.7–37.6; O2SAT 92–99
[2020-06-29] MEDS: PROPOFOL IV EMULSION 100 ML 37.05 MG IV CONT ×2 (00:36→03:14)
[2020-06-29] MEDS: AMPICILLIN SULB 3 GM/NS 100 ML 3 GM/100 ML VIAL IVPB ×4 (02:25→19:36)
[2020-06-29] MEDS: PROPOFOL IV EMULSION 100 ML 33.35 MG IV CONT ×2 (06:10→21:17)
[2020-06-29] MEDS: diazePAM (*CRX) 5 MG TABLET 20 MG PO ×2 (08:16→19:36)
[2020-06-29] MEDS: PANTOPRAZOLE SODIUM IV 40 MG VIAL IV PUSH (08:17)
[2020-06-29] MEDS: THERAPEUTIC MULTIVITAMINS/MINERALS TAB (*BKC) 1 TABLET PO (08:17)
[2020-06-29] MEDS: ENOXAPARIN 40 MG/0.4 ML SYRINGE SUB-Q (08:17)
[2020-06-29] MEDS: lisinopriL 20 MG TABLET 40 MG PO (08:17)
[2020-06-29] MEDS: FOLIC ACID 1 MG TABLET PO (08:17)
[2020-06-29] MEDS: polyethylene glycoL 3350 17 GM POWD.PACK PO (08:17)
[2020-06-29] MEDS: THIAMINE HCL 100 MG TABLET PO (08:18)
[2020-06-29] MEDS: PROPOFOL IV EMULSION 100 ML 29.64 MG IV CONT (08:27)
[2020-06-29] MEDS: MIDAZOLAM 100MG/NS 100ML(*CRX) 100 MG/100 ML BAG 7 MG IV CONT ×2 (08:28→20:55)
--- NOTE | 2020-06-29 08:52 | WPDINTPN ---
Progress Note: A&P Assessment and Plan (1) Respiratory failure, acute: Qualifiers: Respiratory failure complication: hypoxia Qualified Code(s): J96.01 - Acute respiratory failure with hypoxia Code(s): J96.00 - Acute respiratory failure, unspecified whether with hypoxia or hypercapnia Status: Acute Assessment and Plan: Respiratory failure secondary to alcohol withdrawal with difficult airway. Intubated 06/22/2020 Chest x-ray with airspace opacities mid and lower lung zones with improvement consistent with atelectasis or pneumonia. Patient was febrile on the evening of the . Blood cultures are negative to date Continue mechanical ventilation support to prevent hypoxia/hypercarbia and end-organ damage. Patient's ET tube is high at 6.7 cm. The tube was advanced 1 cm last evening without much improvement in imaging. Will advance ET tube again. The patient does have an air leak but this could in part be due to the patient's ET tube being in such a high position. CT soft tissues the neck 06/24/2020 demonstrated mild right tonsillar swelling. The patient completed 2 courses of steroids with no further steroid therapy indicated currently. The patient is fluid approximately 3.5 L with significant peripheral edema positive and received 1 dose of Lasix on the will repeat 20 mg of Lasix at this time. (2) Fever: Qualifiers: Fever type: unspecified Qualified Code(s): R50.9 - Fever, unspecified Code(s): R50.9 - Fever, unspecified Status: Acute Assessment and Plan: Continue empiric antibiotic therapy with Unasyn. Chest x-ray demonstrates atelectasis but cannot rule out aspiration pneumonia. Sputum, blood and urine cultures are pending. White blood cell count remains normal. (3) Delirium tremens: Code(s): F10.231 - Alcohol dependence with withdrawal delirium Status: Acute Assessment and Plan: Patient's level of agitation from alcohol withdrawal has improved. We were able to wean sedation somewhat today. Patient is continued on propofol and has been weaned down to 35 at the time of rounds and is on Versed at 7. The patient was switched to p.o. Valium on 06/28/2020 Goal RASS -4to -5 Continue thiamine and folic acid supplements. (4) Difficult intubation: Qualifiers: Encounter type: sequela Qualified Code(s): T88.4XXS - Failed or difficult intubation, sequela Code(s): T88.4XXA - Failed or difficult intubation, initial encounter Status: Acute Assessment and Plan: Complicated by airway edema, bleeding and failed cricothyroidotomy. Patient has a 7.[address] per Anesthesia Neck exploration with control of hemorrhage performed by ENT 05/25/2020 demonstrating bleeding of right anterior jugular vein which was ligated Patient had leak around cuff with deflation today. He has completed 2 courses of Solu-Medrol. Possible tracheostomy the pending on patient's clinical progress Additional Plan The patient's case was discussed with patient's mother at bedside. Due to a high probability of clinically significant, life threatening deterioration, the patient required my highest level of preparedness to intervene emergently and I personally spent this critical care time directly and personally managing the patient. This critical care time included obtaining a history; examining the patient; pulse oximetry; ordering and review of studies; arranging urgent treatment with development of a management plan; evaluation of patient's response to treatment; frequent reassessment; and discussions with other providers. It was exclusive of separately billable procedures and treating other patients and teaching time. Please see Assessment and Plan section and the rest of the note for further information on patient assessment and treatment This document was completed by using [email or web address] Direct speech recognition software, there
--- NOTE | 2020-06-29 09:25 | PCRCNOTE ---
Cuff leak test assessed, pt had minimal leak when cuff deflated. Vt was not acheived.
[2020-06-29 09:53] LABS: Alveolar/Arterial O2 Gradient 99.6 mmHg; Base Excess ABG 1.7 mEq/l (+/-2.0); Fractional Inspired Oxygen 30 %; HCO3 ABG 25.4 mEq/l (22.0-26.0); Oxygen Content ABG 17.2 %vol (16.0-22.0); Oxygen Saturation ABG 95.1 % (95.0-100.0); Oxyhemoglobin 93.5 % THb (90.0-100.0); PCO2 ABG 36.8 mmHg (35.0-45.0); PO2 ABG 71.1 mmHg (80.0-100.0); PO2 FiO2 Ratio Arterial Blood 2.37 %; Total Hemoglobin 13.1 g/dL (12.0-18.0); pH ABG 7.456 (7.350-7.450)
[2020-06-29 09:54] LABS: Arterial Blood Gas Vent Mode CMV; Arterial Blood Gas Ventilator rate 16 /MIN; Device VENTILATOR; Modified Allen's Test Pass; Site Drawn LEFT RADIAL
[2020-06-29 09:55] LABS: Arterial Blood Gas PEEP 8 cmH2O; Arterial Blood Gas Tidal Volume 450 ml
[2020-06-29 10:04] LABS: Hematocrit 37.5 % (42.0-52.0); Hemoglobin 12.6 g/dL (14.0-18.0); Mean Corpuscular HGB Conc 33.6 g/dl (32-36); Mean Corpuscular Hemoglobin 33.6 pg (26-34); Mean Platelet Volume 9.4 fl (7.4-10.4); Platelet Count Result 179 k/mm3 (150-375); Red Blood Count 3.75 M/mm3 (4.6-6.20); Red Cell Distribution Width 12.6 % (11.5-14.5); White Blood Count 8.4 K/mm3 (4.5-10.0)
[2020-06-29 10:16] LABS: Potassium 3.9 mmol/L (3.4-5.0)
[2020-06-29 10:19] LABS: Anion Gap 2 mmol/L (8-16); Blood Urea Nitrogen 15 mg/dL (9-20); Calcium 7.6 mg/dL (8.4-10.2); Carbon Dioxide 30 mmol/L (22-30); Chloride 101 mmol/L (98-107); Estimated CRCL calculation 154 ml/min; Estimated Glomerular Filt Rate > 60; Glucose 120 mg/dL (75-110); Sodium 133 mmol/L (137-145)
--- NOTE | 2020-06-29 11:10 | PCDIET ---
Nutrition Follow-Up Complete: Nutrition Diagnosis: Inadequate oral intake related to oral intubation as evidenced by NPO status. Nutrition Goal: Patient to meet estimated nutritional needs. Goal met. Patient tolerating Jevity 1.2 at 50mL/hr goal rate with 100mL water flush every 4 hours. Tube feeding with Propofol providing 20kcal/kg actual body weight. Last recorded weight is 128.8 kg which is stable with last review. Bowel Motility: No documented BM. Discussed during rounds. MD states can order suppository if no BM by tomorrow. Daily Miralax continues. Labs Reviewed: Hgb (12.6), Hct (37.5), Glu (120), Na (133), Petra Ca (8.32) Meds Noted: Unasyn, Versed, Fentanyl, MVI/minerals, Folic Acid, Protonix, Hydralazine, Miralax, Lisinopril, Thiamine, Vancomycin, Propofol (rate of 36.06mL/hr provides 951kcal per day) Additional Notes: No documented pressure sores. Will continue to monitor with same goal. Nutrition Monitoring and Evaluation: Follow up every Sunday/Sunday.
[2020-06-29] MEDS: PROPOFOL IV EMULSION 100 ML 25.94 MG IV CONT ×3 (11:23→18:10)
[2020-06-29] MEDS: FUROSEMIDE INJ 40 MG/4 ML VIAL 20 MG IV PUSH (12:21)
--- NOTE | 2020-06-29 14:34 | PM.IMPN ---
Progress Note: A&P Assessment and Plan (1) Alcohol withdrawal seizure: Qualifiers: Complication of substance-induced condition: with delirium Qualified Code(s): F10.231 - Alcohol dependence with withdrawal delirium; R56.9 - Unspecified convulsions Code(s): F10.239 - Alcohol dependence with withdrawal, unspecified; R56.9 - Unspecified convulsions Status: Acute Assessment and Plan: 06/29/20 14:34 Patient has not had anything to drink since evening, timeline fits with alcohol withdrawal seizure. Initiate seizure precautions. He has been started on scheduled Librium with Ativan available as needed. 06/21/20 15:09 Patient is a 50-year-old male with history of alcohol abuse and his last drink for on June 17, however on SundayJune 20, while sitting on the couch talking on the phone and his her loud noise and patient was having seizure-like activity lasting 3 minutes and patient was brought to the emergency department for further evaluate, his alcohol level was 0, patient is on benzodiazepine, while in the hospital patient has not any episode, patient was seen by Neurology and had a EEG which was normal, patient is started on Librium 50 mg every 6 hours and Ativan as needed, will continue to monitor the patient and check electrolytes and supplement, if remains clinically stable may discharge the patient home tomorrow 06/22 this is research assistant hours call by the coding quality coordinator the patient was agitated and may be going into DTs patient was given 3 mg of added and 50 mg Librium however patient was not calming down and was transferred to ICU for close observation while in ICU patient went into DTs and was fighting agitated and wanted to leave patient was restrained, patient was given 32 mg of Ativan or close to an hour and Valium, patient kept fighting and agitated it was decided to intubate the patient, initial vocational adviser tried and was unsuccessful, anesthesiologist came in and patient was intubated, there was bleeding during the process and patient was seen ENT in the or as patient had bleeding veins and was repaired currently patient on versed drip and propfol drip as needed. 06/23 Patient remains intubated and sedated, plan is monitor on vent and sedation with versed and propfol as needed which is on hold, patient is being treated with methylprednisone, today will start NGtube feeding and possible reassess tomorrow and and further recommendation to follow. 06/24 patient has remained intubated and sedated requiring versed as well as propfol patient is being treated with treated with methylprednisone, started NGtube feeding on 06/23 and possible reassess tomorrow and and further recommendation to follow. Appreciate vocational adviser 06/28/20 14:29 patient has remained intubated and sedated requiring versed as well as propfol patient was treated with treated with methylprednisone, started NGtube feeding on 06/23 still requiring sedation with Versed and propfol was resumed on 06/27 is patient is showing agitation and withdrawal of alcohol, it has been 7 days unable to wean the patient off ventilator vocational adviser recommending tract an ENT has been consulted further recommendation to follow. 06/29 patient still remains intubated day 7, d/w vocational adviser swelling along ET is improving as patient had air leak along ET tube suggesting swelling is improving and attempts can be made t wean patient off the ventilator, patient remains sedated with Versed and propfol, patient will be seen by ENT on if there is no clinical improvement and off the vent, patient may need trach, will continue to monitor and appreciate vocational adviser. (2) Elevated LFTs: Code(s): R79.89 - Other specified abnormal findings of blood chemistry Status: Acute Assessment and Plan: Etiology not clear, but may be multifactorial. He was recently started back on a statin, drinks alcohol daily, and had a seizure today with perhaps mild
--- NOTE | 2020-06-29 14:44 | WPDANESEPPF ---
Anes - Initial Pre Proc Eval Procedure: Operation Date: 06/22/20 12:30 Proposed Procedures p Neck Exploration - Sajan Guevara MD Operation Date: 06/30/20 07:30 Proposed Procedures p Tracheostomy - Sajan Guevara MD s Direct Laryngoscopy - Sajan Guevara MD Date/Time: 06/29/20 14:44 Surgeon: Spike Downs MD Pre Op Diagnosis: Seizure like activity/stress Patient Data Age: 50 Gender: M Height: 1.83 m Weight: 128.8 kg Last Vital Signs Temp 36.9 C 06/29/20 12:00 Pulse 65 06/29/20 14:00 Resp 16 06/29/20 14:00 BP 91/49 L 06/29/20 14:00 Pulse Ox 95 06/29/20 14:00 Allergies Allergy/AdvReac Type Severity Reaction Status Date / Time No Known Allergies Allergy Verified 06/20/20 18:53 Home Medications Medication Instructions Recorded Confirmed Type diltiazem HCl 240 mg 240 mg .ROUTE .COMPLEX #90 cap 03/02/20 06/20/20 Rx capsule,extended release 24 hr alprazolam 0.5 mg PO TID PRN 06/20/20 06/20/20 History lisinopril 40 mg PO BID 06/20/20 06/20/20 History rosuvastatin 40 mg PO DAILY 06/20/20 06/20/20 History venlafaxine 150 mg PO DAILY 06/20/20 06/20/20 History Laboratory Tests 06/29/20 06/29/20 06/29/20 09:42 09:45 09:45 WBC 8.4 K/mm3 K/mm3 (4.5-10.0) RBC 3.75 M/mm3 L M/mm3 (4.6-6.20) Hgb 12.6 g/dL L g/dL (14.0-18.0) Hct 37.5 % L % (42.0-52.0) MCV 100.0 fl fl (80-100) MCH 33.6 pg pg (26-34) MCHC 33.6 g/dl g/dl (32-36) RDW 12.6 % % (11.5-14.5) Plt Count 179 k/mm3 k/mm3 (150-375) MPV 9.4 fl fl (7.4-10.4) Puncture Site Left radial ABG pH 7.456 H (7.350-7.450) ABG pCO2 36.8 mmHg mmHg (35.0-45.0) ABG pO2 71.1 mmHg L mmHg (80.0-100.0) ABG PO2/FiO2 Ratio 2.37 % % ABG HCO3 25.4 mEq/l mEq/l (22.0-26.0) ABG O2 Saturation 95.1 % % (95.0-100.0) ABG O2 Content 17.2 %vol %vol (16.0-22.0) ABG Base Excess 1.7 mEq/l mEq/l (+/-2.0) A-a Gradient 99.6 mmHg mmHg Oxyhemoglobin 93.5 % THb % THb (90.0-100.0) Total Hemoglobin 13.1 g/dL g/dL (12.0-18.0) O2 Delivery Device Ventilator O2 Liters/Min Not Reportable Minute Volume Not Reportable Vent Rate 16 /MIN /MIN Vent Mode Cmv FiO2 30 % % Tidal Volume 450 ml ml PEEP 8 cmH2O cmH2O Peak Inspir Pressure Not Reportable Pressure Support Not Reportable Sodium 133 mmol/L L mmol/L (137-145) Potassium 3.9 mmol/L mmol/L (3.4-5.0) Chloride 101 mmol/L mmol/L (98-107) Carbon Dioxide 30 mmol/L mmol/L (22-30) Anion Gap 2 mmol/L L mmol/L (8-16) BUN 15 mg/dL D mg/dL (9-20) Creatinine 0.70 mg/dL mg/dL (0.7-1.3) Estim Creat Clear Calc 154 ml/min ml/min Estimated GFR > 60 (59 - ) Glucose 120 mg/dL H mg/dL (75-110) Calcium 7.6 mg/dL L mg/dL (8.4-10.2) Patient hx anesthesia problems: none Family hx anesthesia problems: none PMFSH Past Medical History Medical History Alcohol abuse Anxiety Depression Erectile dysfunction Hypertension Mixed hyperlipidemia Obstructive sleep apnea Untreated, patient cannot tolerate mask. Surgical History Surgical History History of orthopedic surgery ORIF right hand fracture with hardware. ORIF left ankle fracture. Family History Family History Other Cerebrovascular accident Diabetes mellitus Family history of cardiovascular disease Family history of hypercholesterolemia Hypertension Social History Social History (Reviewed 06/22/20 @ 12:58 by Ciro Mullen
[2020-06-30] VITALS (30 sets, daily range): BP systolic 77–158; BP diastolic 33–97; PULSE 51–89; RESP 16–28; TEMP 35.9–37.2; O2SAT 91–99
[2020-06-30] MEDS: PROPOFOL IV EMULSION 100 ML 29.64 MG IV CONT ×2 (00:15→03:23)
[2020-06-30] MEDS: AMPICILLIN SULB 3 GM/NS 100 ML 3 GM/100 ML VIAL IVPB ×4 (01:02→19:38)
[2020-06-30] MEDS: fentaNYL CITRATE INJ (*CRX) 100 MCG/2 ML VIAL 50 MCG IV PUSH ×2 (01:49→19:10)
[2020-06-30 02:22] LABS: Hematocrit 36.8 % (42.0-52.0); Hemoglobin 12.3 g/dL (14.0-18.0); Mean Corpuscular HGB Conc 33.4 g/dl (32-36); Mean Corpuscular Volume 98.7 fl (80-100); Mean Platelet Volume 9.2 fl (7.4-10.4); Platelet Count Result 220 k/mm3 (150-375); Red Blood Count 3.73 M/mm3 (4.6-6.20); Red Cell Distribution Width 12.5 % (11.5-14.5); White Blood Count 7.7 K/mm3 (4.5-10.0)
[2020-06-30 02:36] LABS: Anion Gap 2 mmol/L (8-16); Blood Urea Nitrogen 15 mg/dL (9-20); Calcium 7.7 mg/dL (8.4-10.2); Carbon Dioxide 30 mmol/L (22-30); Chloride 102 mmol/L (98-107); Estimated CRCL calculation 154 ml/min; Estimated Glomerular Filt Rate > 60; Glucose 110 mg/dL (75-110); Sodium 134 mmol/L (137-145)
[2020-06-30 03:19] LABS: Vancomycin Trough 8.4 ug/mL (10.0-20.0)
[2020-06-30 05:03] LABS: Alveolar/Arterial O2 Gradient 56.2 mmHg; Base Excess ABG 1.6 mEq/l (+/-2.0); Carboxyhemoglobin 0.3 % THb (0-2.0); Fractional Inspired Oxygen 30 %; HCO3 ABG 25.9 mEq/l (22.0-26.0); Methemoglobin ABG 0.3 %THb (0-1.5); Oxygen Content ABG 18.3 %vol (16.0-22.0); Oxygen Saturation ABG 98.2 % (95.0-100.0); Oxyhemoglobin 97.1 % THb (90.0-100.0); PCO2 ABG 39.9 mmHg (35.0-45.0); PO2 ABG 110.8 mmHg (80.0-100.0); PO2 FiO2 Ratio Arterial Blood 3.69 %; Reduced Hemoglobin 2.3 %THb (0-5.0); Total Hemoglobin 13.3 g/dL (12.0-18.0); pH ABG 7.431 (7.350-7.450)
[2020-06-30 05:04] LABS: Arterial Blood Gas Ventilator rate 16 /MIN; Device VENTILATOR; Modified Allen's Test Pass; Site Drawn LEFT RADIAL
[2020-06-30 05:05] LABS: Arterial Blood Gas PEEP 8 cmH2O; Arterial Blood Gas Tidal Volume 450 ml; Arterial Blood Gas Vent Mode CMV
[2020-06-30] MEDS: PROPOFOL IV EMULSION 100 ML 22.23 MG IV CONT ×4 (07:19→20:54)
[2020-06-30] MEDS: dexmedeTOMIDine 400 MCG/100 ML 400 MCG/100 ML BAG 30.9 MCG IV CONT ×5 (07:29→21:00)
[2020-06-30] MEDS: ENOXAPARIN 40 MG/0.4 ML SYRINGE SUB-Q (08:06)
[2020-06-30] MEDS: FOLIC ACID 1 MG TABLET PO (08:06)
[2020-06-30] MEDS: lisinopriL 20 MG TABLET 40 MG PO (08:06)
[2020-06-30] MEDS: THERAPEUTIC MULTIVITAMINS/MINERALS TAB (*BKC) 1 TABLET PO (08:07)
[2020-06-30] MEDS: THIAMINE HCL 100 MG TABLET PO (08:07)
[2020-06-30] MEDS: polyethylene glycoL 3350 17 GM POWD.PACK PO (08:07)
[2020-06-30] MEDS: PANTOPRAZOLE SODIUM IV 40 MG VIAL IV PUSH (08:07)
[2020-06-30] MEDS: chlordiazePOXIDE (*CRX) 25 MG CAPSULE PO ×3 (08:18→21:23)
[2020-06-30] MEDS: CALCIUM CHLOR 1,000MG/100ML NS 1,000 MG/100 ML BAG 100 MG IVPB (08:18)
[2020-06-30] MEDS: FUROSEMIDE INJ 40 MG/4 ML VIAL IV PUSH (10:10)
--- NOTE | 2020-06-30 10:22 | PCDIET ---
ICU Rounding Note: Tube feedings held for breathing trials. Previously tolerating Jevity 1.2 at 50mL/hr goal rate with 100mL water flush every 4 hours. Last recorded weight is 123.6kg which is down from last review, but up from admission. Bowel Motility: No BM per RN - MD ordering KUB and possible suppository, pending results. Labs Reviewed: Hgb (12.3), Hct (36.8), Na (134), Ca (7.7) Meds Noted: Propofol (rate of 22.23mL/hr provides 586kcal per day), Unasyn, Fentanyl, Folic Acid, Apresoline, Librium, Precedex, Lisinopril, Versed, MVI, Protonix, Miralax, Thiamine, Vancomycin Additional Notes: No documented skin breakdown. Following daily in ICU rounds. Assessing/reassessing every Sunday/Sunday.
--- NOTE | 2020-06-30 11:55 | WPDINTPN ---
Progress Note: A&P Assessment and Plan (1) Respiratory failure, acute: Qualifiers: Respiratory failure complication: hypoxia Qualified Code(s): J96.01 - Acute respiratory failure with hypoxia Code(s): J96.00 - Acute respiratory failure, unspecified whether with hypoxia or hypercapnia Status: Acute Assessment and Plan: Acute Respiratory failure secondary to alcohol withdrawal and significant agitation. He had very difficult airway with significant airway trauma during intubation. Anesthesia were called in to help. Cricothyrotomy has been attempted as well. There was some bleeding from the wound and bedside exploration done by ENT and bleeder was ligated. Chest x-ray shows airspace opacities of the mid and lower lung zones with improvement at the right lung base, consistent with atelectasis versus pneumonia.. Patient is afebrile and WBC is normal. Hold off antibiotics for now. Continue full mechanical ventilation support to prevent hypoxemia/hypercarbia and end organ damage. SBT trial on the daily basis. Extubated if he does well on SBT trial. Air leak will be checked before extubation. He will need to have ENT and Anesthesia at the bedside at the time of extubation. CT soft tissue 06/24/2020 showed mild right tonsillar swelling otherwise unremarkable. Has received steroid twice already. Tracheostomy was planned but now that has been put on hold because of good air leak for the last day or 2. Continue Bronchodilators Low tidal volume strategy Continue sedation. Sedation vacation trial on the daily basis. (2) Acute alcohol intoxication delirium with moderate or severe use disorder: Code(s): F10.221 - Alcohol dependence with intoxication delirium Status: Acute Assessment and Plan: Currently on propofol and Precedex. Versed has been weaned off. Valium has been switched to Librium on standing basis. -p.r.n. fentanyl on board - goal RASS of -4 to -5 -thiamine and folic acid (3) Difficult intubation: Qualifiers: Encounter type: sequela Qualified Code(s): T88.4XXS - Failed or difficult intubation, sequela Code(s): T88.4XXA - Failed or difficult intubation, initial encounter Status: Acute Assessment and Plan: Complicated by air way edema, bleeding and failed cricothyrotomy. - oral 7.0 ET tube placed by Anesthesia, appreciate their help and support. - Neck exploration with control of hemorrhage performed by ENT 06/22 showed bleeding right anterior jugular vein which was ligated - Patient has completed 2 courses of Solu-Medrol. Further systemic steroids would not be helpful at this stage. -tracheostomy was initially planned but that has been put on hold as patient started to have some air leak since yesterday. (4) Rhabdomyolysis: Code(s): M62.82 - Rhabdomyolysis Status: Acute Assessment and Plan: No indications of Rhabdomyolysis, mild elevation in CK on admission resolved. (5) Electrolyte abnormality: Code(s): E87.8 - Other disorders of electrolyte and fluid balance, not elsewhere classified Status: Acute Assessment and Plan: Improved after replacement (6) Fever: Qualifiers: Fever type: unspecified Qualified Code(s): R50.9 - Fever, unspecified Code(s): R50.9 - Fever, unspecified Status: Acute Assessment and Plan: No obvious source of infection. CXR shows possible atelectasis but cannot rule out aspiration pneumonia. Continue Unasyn and vancomycin. Deescalate antibiotics based on further clinical data. Sputum, blood and urine cultures are pending. WBC is normal Additional Plan DVT prophylaxis -Lovenox Stress ulcer prophylaxis - Protonix Nutrition -continue tube Feeds Discussed with patient's father and updated with patient's condition and plan of care. I answered all questions Code Status - Full Code Critical care time spent: 34 minutes This dictation may have been done
--- NOTE | 2020-06-30 13:59 | PM.IMPN ---
Progress Note: A&P Assessment and Plan (1) Alcohol withdrawal seizure: Qualifiers: Complication of substance-induced condition: with delirium Qualified Code(s): F10.231 - Alcohol dependence with withdrawal delirium; R56.9 - Unspecified convulsions Code(s): F10.239 - Alcohol dependence with withdrawal, unspecified; R56.9 - Unspecified convulsions Status: Acute Assessment and Plan: 06/30/20 13:59 Patient has not had anything to drink since evening, timeline fits with alcohol withdrawal seizure. Initiate seizure precautions. He has been started on scheduled Librium with Ativan available as needed. 06/21/20 15:09 Patient is a 50-year-old male with history of alcohol abuse and his last drink for on June 17, however on SundayJune 20, while sitting on the couch talking on the phone and his her loud noise and patient was having seizure-like activity lasting 3 minutes and patient was brought to the emergency department for further evaluate, his alcohol level was 0, patient is on benzodiazepine, while in the hospital patient has not any episode, patient was seen by Neurology and had a EEG which was normal, patient is started on Librium 50 mg every 6 hours and Ativan as needed, will continue to monitor the patient and check electrolytes and supplement, if remains clinically stable may discharge the patient home tomorrow 06/22 this is solutions analyst hours call by the horse doctor the patient was agitated and may be going into DTs patient was given 3 mg of added and 50 mg Librium however patient was not calming down and was transferred to ICU for close observation while in ICU patient went into DTs and was fighting agitated and wanted to leave patient was restrained, patient was given 32 mg of Ativan or close to an hour and Valium, patient kept fighting and agitated it was decided to intubate the patient, initial director voice tried and was unsuccessful, anesthesiologist came in and patient was intubated, there was bleeding during the process and patient was seen ENT in the or as patient had bleeding veins and was repaired currently patient on versed drip and propfol drip as needed. 06/23 Patient remains intubated and sedated, plan is monitor on vent and sedation with versed and propfol as needed which is on hold, patient is being treated with methylprednisone, today will start NGtube feeding and possible reassess tomorrow and and further recommendation to follow. 06/24 patient has remained intubated and sedated requiring versed as well as propfol patient is being treated with treated with methylprednisone, started NGtube feeding on 06/23 and possible reassess tomorrow and and further recommendation to follow. Appreciate director voice 06/28/20 14:29 patient has remained intubated and sedated requiring versed as well as propfol patient was treated with treated with methylprednisone, started NGtube feeding on 06/23 still requiring sedation with Versed and propfol was resumed on 06/27 is patient is showing agitation and withdrawal of alcohol, it has been 7 days unable to wean the patient off ventilator director voice recommending tract an ENT has been consulted further recommendation to follow. 06/29 patient still remains intubated day 7, d/w director voice swelling along ET is improving as patient had air leak along ET tube suggesting swelling is improving and attempts can be made t wean patient off the ventilator, patient remains sedated with Versed and propfol, patient will be seen by ENT on if there is no clinical improvement and off the vent, patient may need trach, will continue to monitor and appreciate director voice. 06/30 patient still remains intubated day 8th, patient was given trial of SBT however he was not able to tolerate, versed was weaned off he is now Precedex and on propfol, will continue to monitor. (2) Elevated LFTs: Code(s): R79.89 - Other specified abnormal findings of blood chemistry
[2020-06-30] MEDS: SODIUM CHLORIDE 0.9% IV 500 ML IV CONT (20:58)
[2020-06-30] MEDS: dexmedeTOMIDine 400 MCG/100 ML 400 MCG/100 ML BAG 40.17 MCG IV CONT (23:30)
[2020-07-01] VITALS (33 sets, daily range): BP systolic 90–166; BP diastolic 63–112; PULSE 53–136; RESP 14–28; TEMP 36.6–38.8; O2SAT 93–100
[2020-07-01] MEDS: PROPOFOL IV EMULSION 100 ML 22.23 MG IV CONT ×3 (00:44→09:24)
[2020-07-01] MEDS: dexmedeTOMIDine 400 MCG/100 ML 400 MCG/100 ML BAG 43.26 MCG IV CONT ×7 (02:00→14:29)
[2020-07-01] MEDS: AMPICILLIN SULB 3 GM/NS 100 ML 3 GM/100 ML VIAL IVPB ×3 (02:30→21:04)
[2020-07-01] MEDS: MIDAZOLAM 100MG/NS 100ML(*CRX) 100 MG/100 ML BAG IV CONT ×2 (03:59→09:25)
[2020-07-01 04:35] LABS: Alveolar/Arterial O2 Gradient 94.2 mmHg; Base Excess ABG 3.7 mEq/l (+/-2.0); Carboxyhemoglobin 0.3 % THb (0-2.0); Fractional Inspired Oxygen 30 %; HCO3 ABG 27.5 mEq/l (22.0-26.0); Methemoglobin ABG 0.4 %THb (0-1.5); Oxygen Saturation ABG 95.7 % (95.0-100.0); Oxyhemoglobin 94.2 % THb (90.0-100.0); PCO2 ABG 38.8 mmHg (35.0-45.0); PO2 ABG 74.1 mmHg (80.0-100.0); PO2 FiO2 Ratio Arterial Blood 2.47 %; Reduced Hemoglobin 5.1 %THb (0-5.0); Total Hemoglobin 13.6 g/dL (12.0-18.0); pH ABG 7.468 (7.350-7.450)
[2020-07-01 04:37] LABS: Arterial Blood Gas PEEP 5 cmH2O; Arterial Blood Gas Tidal Volume 450 ml; Arterial Blood Gas Vent Mode CMV; Arterial Blood Gas Ventilator rate 16 /MIN; Device VENTILATOR; Modified Allen's Test Unable to perform; Site Drawn LEFT RADIAL
[2020-07-01 05:44] LABS: Hematocrit 39.1 % (42.0-52.0); Hemoglobin 13.2 g/dL (14.0-18.0); Mean Corpuscular HGB Conc 33.8 g/dl (32-36); Mean Corpuscular Hemoglobin 32.9 pg (26-34); Mean Corpuscular Volume 97.5 fl (80-100); Mean Platelet Volume 9.6 fl (7.4-10.4); Platelet Count Result 208 k/mm3 (150-375); Red Blood Count 4.01 M/mm3 (4.6-6.20); Red Cell Distribution Width 12.1 % (11.5-14.5); White Blood Count 10.1 K/mm3 (4.5-10.0)
[2020-07-01] MEDS: chlordiazePOXIDE (*CRX) 25 MG CAPSULE PO ×2 (05:53→20:00)
[2020-07-01 05:58] LABS: Anion Gap 3 mmol/L (8-16); Blood Urea Nitrogen 14 mg/dL (9-20); Calcium 7.9 mg/dL (8.4-10.2); Carbon Dioxide 27 mmol/L (22-30); Chloride 102 mmol/L (98-107); Estimated CRCL calculation 205 ml/min; Estimated Glomerular Filt Rate > 60; Glucose 120 mg/dL (75-110); Sodium 132 mmol/L (137-145); Triglycerides 226 mg/dL (<150)
[2020-07-01] MEDS: LORazepam INJ (*CRX) 2 MG/ML VIAL (09:23)
--- NOTE | 2020-07-01 09:34 | WPDINTPN ---
Progress Note: A&P Assessment and Plan (1) Respiratory failure, acute: Qualifiers: Respiratory failure complication: hypoxia Qualified Code(s): J96.01 - Acute respiratory failure with hypoxia Code(s): J96.00 - Acute respiratory failure, unspecified whether with hypoxia or hypercapnia Status: Acute Assessment and Plan: Acute Respiratory failure secondary to alcohol withdrawal and significant agitation. He had very difficult airway with significant airway trauma during intubation. Anesthesia were called in to help. Cricothyrotomy has been attempted as well. There was some bleeding from the wound and bedside exploration done by ENT and bleeder was ligated. Chest x-ray shows airspace opacities of the mid and lower lung zones with improvement at the right lung base, consistent with atelectasis versus pneumonia.. Patient is afebrile and WBC is normal. Hold off antibiotics for now. Since then patient had no air leak around his cough. He completed 2 courses of steroids. Trach was planned but yesterday on exam patient had small air leak. This morning when I evaluated the patient he had good air leak around ETT once his cuff was deflated. I spoke to ENT and anesthesia for potential extubation. Dr. Almaraz and Dr. Sloan were called at bedside. Equipment and medications were arranged in case patient needs to be reintubated. Patient was extubated. Post extubation he had no stridor he was agitated and confused. He maintained his oxygenation without any respiratory distress and had good cough reflex Will continue to monitor patient closely at this time with supplemental oxygen . CT soft tissue 06/24/2020 showed mild right tonsillar swelling otherwise unremarkable. Has received steroid twice already. Continue Bronchodilators (2) Acute alcohol intoxication delirium with moderate or severe use disorder: Code(s): F10.221 - Alcohol dependence with intoxication delirium Status: Acute Assessment and Plan: Patient was on propofol, Versed and Precedex. Both propofol and Versed were turned off prior to extubation. Post extubation patient is again agitated and confused and trying to pull on lines tubes and trying to get out of bed. He is alert awake but not oriented. He is confrontational, uses abusive language and can get easily agitated I have tried to explain to him the situation and requested to stay calm and cooperative with the staff Wrist restraints have been removed at this time along with SCDs as patient's request. I have requested a bedside sitter I will continue Precedex infusion and use Ativan on p.r.n. basis. His last intubation was due to agitation and now hoping to avoid re-intubation at this time and trying to control his agitation with medications and supportive care Continue thiamine and folic acid (3) Difficult intubation: Qualifiers: Encounter type: sequela Qualified Code(s): T88.4XXS - Failed or difficult intubation, sequela Code(s): T88.4XXA - Failed or difficult intubation, initial encounter Status: Acute Assessment and Plan: Complicated by air way edema, bleeding and failed cricothyrotomy. - oral 7.0 ET tube placed by Anesthesia, appreciate their help and support. - Neck exploration with control of hemorrhage performed by ENT 06/22 showed bleeding right anterior jugular vein which was ligated - Patient has completed 2 courses of Solu-Medrol. Further systemic steroids would not be helpful at this stage. -tracheostomy was initially planned but that has been put on hold as patient started to have some air leak since yesterday. - 07/01 patient extubated. No stridor heard post extubation. Continue to monitor (4) Rhabdomyolysis: Code(s): M62.82 - Rhabdomyolysis Status: Acute Assessment and Plan: No indications of Rhabdomyolysis, mild elevation in CK on admission resolved. (5) Electrolyte abnormality: Code(s): E87.8 - Other disorders
[2020-07-01] MEDS: LORazepam INJ (*CRX) 2 MG/ML VIAL IV PUSH ×8 (09:42→19:26)
[2020-07-01] MEDS: PANTOPRAZOLE SODIUM IV 40 MG VIAL IV PUSH (10:56)
[2020-07-01] MEDS: ENOXAPARIN 40 MG/0.4 ML SYRINGE SUB-Q (10:56)
--- NOTE | 2020-07-01 11:47 | PCDIET ---
ICU Rounding Note: Patient has been extubated, but remains agitated and confused. NPO appropriate at this time. Last recorded weight is 129.5kg which is increased from last review. -I/O. Bowel Motility: BM x 1 on 06/30/20. Labs Reviewed: Hgb (13.2), Hct (39.1), Glu (120), TG (226) Meds Noted: Unasyn, Fentanyl, Versed, Librium, Folic Acid, MVI, Thiamine, Vancomycin, Precedex, Hydralazine, Miralax, Lisinopril, Protonix Additional Notes: No documented skin breakdown. Following daily in ICU rounds. Assessing/reassessing every Sunday/Sunday.
--- NOTE | 2020-07-01 13:37 | PM.EVENT ---
Event Note Event Note Event Note: Patient continues to be agitated and uncooperative with staff. He is confused but intermittently follows commands and tries to pull on things including lines nasal cannula clothes and blood pressure cuff. Physically restrained at this time for his own safety. Patient has been receiving frequent Ativan dosing. I will start him on Ativan infusion along with end-tidal CO2 monitoring. Will try to avoid re-intubation and leave it as a last resort.
[2020-07-01] MEDS: LORazepam INJ (*CRX) 40 MG in DEXTROSE 5% IN WATER 20 ML IV CONT (14:07)
[2020-07-01] MEDS: MIDAZOLAM HCL (*CRX) 2 MG/2 ML VIAL ×2 (14:49→15:03)
--- NOTE | 2020-07-01 16:31 | PM.IMPN ---
Progress Note: A&P Assessment and Plan (1) Alcohol withdrawal seizure: Qualifiers: Complication of substance-induced condition: with delirium Qualified Code(s): F10.231 - Alcohol dependence with withdrawal delirium; R56.9 - Unspecified convulsions Code(s): F10.239 - Alcohol dependence with withdrawal, unspecified; R56.9 - Unspecified convulsions Status: Acute Assessment and Plan: 07/01/20 16:31 Patient has not had anything to drink since evening, timeline fits with alcohol withdrawal seizure. Initiate seizure precautions. He has been started on scheduled Librium with Ativan available as needed. 06/21/20 15:09 Patient is a 50-year-old male with history of alcohol abuse and his last drink for on June 17, however on SundayJune 20, while sitting on the couch talking on the phone and his her loud noise and patient was having seizure-like activity lasting 3 minutes and patient was brought to the emergency department for further evaluate, his alcohol level was 0, patient is on benzodiazepine, while in the hospital patient has not any episode, patient was seen by Neurology and had a EEG which was normal, patient is started on Librium 50 mg every 6 hours and Ativan as needed, will continue to monitor the patient and check electrolytes and supplement, if remains clinically stable may discharge the patient home tomorrow 06/22 this is morning show host hours call by the diffusion furnace operator the patient was agitated and may be going into DTs patient was given 3 mg of added and 50 mg Librium however patient was not calming down and was transferred to ICU for close observation while in ICU patient went into DTs and was fighting agitated and wanted to leave patient was restrained, patient was given 32 mg of Ativan or close to an hour and Valium, patient kept fighting and agitated it was decided to intubate the patient, initial director electrical engineering tried and was unsuccessful, anesthesiologist came in and patient was intubated, there was bleeding during the process and patient was seen ENT in the or as patient had bleeding veins and was repaired currently patient on versed drip and propfol drip as needed. 06/23 Patient remains intubated and sedated, plan is monitor on vent and sedation with versed and propfol as needed which is on hold, patient is being treated with methylprednisone, today will start NGtube feeding and possible reassess tomorrow and and further recommendation to follow. 06/24 patient has remained intubated and sedated requiring versed as well as propfol patient is being treated with treated with methylprednisone, started NGtube feeding on 06/23 and possible reassess tomorrow and and further recommendation to follow. Appreciate director electrical engineering 06/28/20 14:29 patient has remained intubated and sedated requiring versed as well as propfol patient was treated with treated with methylprednisone, started NGtube feeding on 06/23 still requiring sedation with Versed and propfol was resumed on 06/27 is patient is showing agitation and withdrawal of alcohol, it has been 7 days unable to wean the patient off ventilator director electrical engineering recommending tract an ENT has been consulted further recommendation to follow. 06/29 patient still remains intubated day 7, d/w director electrical engineering swelling along ET is improving as patient had air leak along ET tube suggesting swelling is improving and attempts can be made t wean patient off the ventilator, patient remains sedated with Versed and propfol, patient will be seen by ENT on if there is no clinical improvement and off the vent, patient may need trach, will continue to monitor and appreciate director electrical engineering. 06/30 patient still remains intubated day 8th, patient was given trial of SBT however he was not able to tolerate, versed was weaned off he is now Precedex and on propfol, will continue to monitor. 07/01 today patient was just extubated and still somewhat aggitated, on precedex, seen by director electrical engineering
[2020-07-01 18:47] LABS: Glucose Point of Care 87 (65-105)
[2020-07-01] MEDS: LORazepam INJ (*CRX) 40 MG in DEXTROSE 5% IN WATER 20 ML 5 MG IV CONT (19:56)
[2020-07-01] MEDS: dexmedeTOMIDine 400 MCG/100 ML 400 MCG/100 ML BAG 46.35 MCG IV CONT (21:02)
[2020-07-02] VITALS (42 sets, daily range): BP systolic 111–201; BP diastolic 61–153; PULSE 53–80; RESP 16–42; TEMP 36.6–37.9; O2SAT 92–100
[2020-07-02] MEDS: dexmedeTOMIDine 400 MCG/100 ML 400 MCG/100 ML BAG 46.35 MCG IV CONT ×11 (00:13→21:12)
[2020-07-02 00:42] LABS: Glucose Point of Care 132 (65-105)
[2020-07-02] MEDS: AMPICILLIN SULB 3 GM/NS 100 ML 3 GM/100 ML VIAL IVPB ×4 (02:03→20:43)
[2020-07-02 04:19] LABS: Hematocrit 37.3 % (42.0-52.0); Mean Corpuscular HGB Conc 34.9 g/dl (32-36); Mean Corpuscular Hemoglobin 32.6 pg (26-34); Mean Corpuscular Volume 93.5 fl (80-100); Mean Platelet Volume 9.1 fl (7.4-10.4); Platelet Count Result 221 k/mm3 (150-375); Red Blood Count 3.99 M/mm3 (4.6-6.20); White Blood Count 8.7 K/mm3 (4.5-10.0)
[2020-07-02 04:31] LABS: Anion Gap 6 mmol/L (8-16); Blood Urea Nitrogen 13 mg/dL (9-20); Calcium 8.2 mg/dL (8.4-10.2); Carbon Dioxide 28 mmol/L (22-30); Chloride 106 mmol/L (98-107); Estimated CRCL calculation 178 ml/min; Estimated Glomerular Filt Rate > 60; Glucose 134 mg/dL (75-110); Magnesium 2.4 mg/dL (1.6-2.3); Potassium 4.2 mmol/L (3.4-5.0); Sodium 140 mmol/L (137-145)
[2020-07-02] MEDS: LORazepam INJ (*CRX) 40 MG in DEXTROSE 5% IN WATER 20 ML IV CONT (04:33)
[2020-07-02] MEDS: chlordiazePOXIDE (*CRX) 25 MG CAPSULE PO (05:59)
--- NOTE | 2020-07-02 08:01 | WPDINTPN ---
Progress Note: A&P Assessment and Plan (1) Respiratory failure, acute: Qualifiers: Respiratory failure complication: hypoxia Qualified Code(s): J96.01 - Acute respiratory failure with hypoxia Code(s): J96.00 - Acute respiratory failure, unspecified whether with hypoxia or hypercapnia Status: Acute Assessment and Plan: Acute Respiratory failure secondary to alcohol withdrawal and significant agitation. He had very difficult airway with significant airway trauma during intubation. Anesthesia were called in to help. Cricothyrotomy has been attempted as well. There was some bleeding from the wound and bedside exploration done by ENT and bleeder was ligated. Chest x-ray shows airspace opacities of the mid and lower lung zones with improvement at the right lung base, consistent with atelectasis versus pneumonia.. Patient is afebrile and WBC is normal. Hold off antibiotics for now. He completed 2 courses of steroids. Trach was planned but that was put on hold because of him having good air leak. He was extubated on 07/01. This morning when I evaluated the patient he had good air leak around ETT once his cuff was deflated. Patient was extubated. Post extubation he had no stridor he was agitated and confused. ENT and Anesthesia Service was at the bedside after extubation. He maintained his oxygenation without any respiratory distress and had good cough reflex CT soft tissue 06/24/2020 showed mild right tonsillar swelling otherwise unremarkable. Has received steroid twice already. Continue Bronchodilators. He is currently on Precedex and Ativan drip for his significant confusion and agitation. He is on end-tidal CO2 with values ranging in mid 20s and early 30s. I will try to avoid intubation and will keep it for the last resort only. He is currently on room air. Speech eval is pending. PT OT follow-up. (2) Acute alcohol intoxication delirium with moderate or severe use disorder: Code(s): F10.221 - Alcohol dependence with intoxication delirium Status: Acute Assessment and Plan: He is currently on Ativan and Precedex drip. Continue in tidal volume monitoring. Will try to wean Ativan if tolerated. Post extubation patient is again agitated and confused and trying to pull on lines tubes and trying to get out of bed. He is alert awake but not oriented. He is confrontational, uses abusive language and can get easily agitated I have tried to explain to him the situation and requested to stay calm and cooperative with the staff His last intubation was due to agitation and now hoping to avoid re-intubation at this time and trying to control his agitation with medications and supportive care Continue thiamine and folic acid. (3) Difficult intubation: Qualifiers: Encounter type: sequela Qualified Code(s): T88.4XXS - Failed or difficult intubation, sequela Code(s): T88.4XXA - Failed or difficult intubation, initial encounter Status: Acute Assessment and Plan: Complicated by air way edema, bleeding and failed cricothyrodotomy. - oral 7.0 ET tube placed by Anesthesia, appreciate their help and support. - Neck exploration with control of hemorrhage performed by ENT 06/22 showed bleeding right anterior jugular vein which was ligated - Patient has completed 2 courses of Solu-Medrol. Further systemic steroids would not be helpful at this stage. -tracheostomy was initially planned but that has been put on hold as patient started to have some air leak since yesterday. - 07/01 patient extubated. No stridor heard post extubation. Continue to monitor (4) Rhabdomyolysis: Code(s): M62.82 - Rhabdomyolysis Status: Acute Assessment and Plan: No indications of Rhabdomyolysis, mild elevation in CK on admission resolved. (5) Electrolyte abnormality: Code(s): E87.8 - Other disorders of electrolyte and fluid balance, not elsewhere classified Status: Ac
[2020-07-02] MEDS: FAMOTIDINE 20 MG/2 ML VIAL IV PUSH ×2 (09:14→20:44)
[2020-07-02] MEDS: ENOXAPARIN 40 MG/0.4 ML SYRINGE SUB-Q (09:14)
[2020-07-02] MEDS: polyethylene glycoL 3350 17 GM POWD.PACK PO (09:15)
--- NOTE | 2020-07-02 11:13 | PCDIET ---
Nutrition Follow-Up Complete: Nutrition Diagnosis: Inadequate oral intake related to oral intubation as evidenced by NPO status. Nutrition Goal: Patient to meet estimated nutritional needs. Goal in progress. Diet has just been advanced to pureed with level 2 liquids following MARBLE CUTTER evaluation. Last recorded weight is 125.6 kg which is down from last review. -I/O noted. Bowel Motility: Last documented BM on 06/30/20 x 1. Labs Reviewed: Hgb (13.0), Hct (37.3), Glu (134), Cr (0.6), Mg (2.4), Ca (8.2) Meds Noted: Unasyn, Fentanyl, MVI/minerals, Librium, Folic Acid, Precedex, Hydralazine, Pepcid, Lisinopril Additional Notes: No pressure sores documented. Will continue to monitor with same goal. Nutrition Monitoring and Evaluation: Follow up every 3 days.
[2020-07-02] MEDS: LIDOCAINE HCL 1% PF INJ 5 ML VIAL INFILTRATE (11:20)
--- NOTE | 2020-07-02 12:34 | PM.IMPN ---
Progress Note: A&P Assessment and Plan (1) Alcohol withdrawal seizure: Qualifiers: Complication of substance-induced condition: with delirium Qualified Code(s): F10.231 - Alcohol dependence with withdrawal delirium; R56.9 - Unspecified convulsions Code(s): F10.239 - Alcohol dependence with withdrawal, unspecified; R56.9 - Unspecified convulsions Status: Acute Assessment and Plan: 07/02/20 12:34 Patient has not had anything to drink since evening, timeline fits with alcohol withdrawal seizure. Initiate seizure precautions. He has been started on scheduled Librium with Ativan available as needed. 06/21/20 15:09 Patient is a 50-year-old male with history of alcohol abuse and his last drink for on June 17, however on SundayJune 20, while sitting on the couch talking on the phone and his her loud noise and patient was having seizure-like activity lasting 3 minutes and patient was brought to the emergency department for further evaluate, his alcohol level was 0, patient is on benzodiazepine, while in the hospital patient has not any episode, patient was seen by Neurology and had a EEG which was normal, patient is started on Librium 50 mg every 6 hours and Ativan as needed, will continue to monitor the patient and check electrolytes and supplement, if remains clinically stable may discharge the patient home tomorrow 06/22 this is cobbler mckay hours call by the necktie turner the patient was agitated and may be going into DTs patient was given 3 mg of added and 50 mg Librium however patient was not calming down and was transferred to ICU for close observation while in ICU patient went into DTs and was fighting agitated and wanted to leave patient was restrained, patient was given 32 mg of Ativan or close to an hour and Valium, patient kept fighting and agitated it was decided to intubate the patient, initial bagger and stock handler helper tried and was unsuccessful, anesthesiologist came in and patient was intubated, there was bleeding during the process and patient was seen ENT in the or as patient had bleeding veins and was repaired currently patient on versed drip and propfol drip as needed. 06/23 Patient remains intubated and sedated, plan is monitor on vent and sedation with versed and propfol as needed which is on hold, patient is being treated with methylprednisone, today will start NGtube feeding and possible reassess tomorrow and and further recommendation to follow. 06/24 patient has remained intubated and sedated requiring versed as well as propfol patient is being treated with treated with methylprednisone, started NGtube feeding on 06/23 and possible reassess tomorrow and and further recommendation to follow. Appreciate bagger and stock handler helper 06/28/20 14:29 patient has remained intubated and sedated requiring versed as well as propfol patient was treated with treated with methylprednisone, started NGtube feeding on 06/23 still requiring sedation with Versed and propfol was resumed on 06/27 is patient is showing agitation and withdrawal of alcohol, it has been 7 days unable to wean the patient off ventilator bagger and stock handler helper recommending tract an ENT has been consulted further recommendation to follow. 06/29 patient still remains intubated day 7, d/w bagger and stock handler helper swelling along ET is improving as patient had air leak along ET tube suggesting swelling is improving and attempts can be made t wean patient off the ventilator, patient remains sedated with Versed and propfol, patient will be seen by ENT on if there is no clinical improvement and off the vent, patient may need trach, will continue to monitor and appreciate bagger and stock handler helper. 06/30 patient still remains intubated day 8th, patient was given trial of SBT however he was not able to tolerate, versed was weaned off he is now Precedex and on propfol, will continue to monitor. 07/01 today patient was just extubated and still somewhat aggitated, on precedex, seen by bagger and stock handler helper
[2020-07-02] MEDS: CENTRAL LINE FLUSH 10 ML IV PUSH ×2 (14:07→20:44)
--- NOTE | 2020-07-02 19:56 | PC.NURSE ---
Pt yelling out. Became agitated when this RN attempted to reposition him to keep him from falling out of bed. Pt kicked this RN 3 times.
[2020-07-02] MEDS: HALOPERIDOL LACTATE 5 MG/ML VIAL IM (20:07)
[2020-07-02] MEDS: dexmedeTOMIDine 400 MCG/100 ML 400 MCG/100 ML BAG 43.26 MCG IV CONT (23:11)
--- NOTE | 2020-07-02 23:57 | PC.NURSE ---
Ativan gtt found infusing at 0.5 mg. Unable to titrate on EMAR due to dayshift RN incorrectly charting volume infused. Ativan gtt titrated off at 2200 by this RN.
[2020-07-03] VITALS (29 sets, daily range): BP systolic 84–136; BP diastolic 56–85; PULSE 48–86; RESP 18–38; TEMP 36.6–37.8; O2SAT 93–100
[2020-07-03] MEDS: AMPICILLIN SULB 3 GM/NS 100 ML 3 GM/100 ML VIAL IVPB ×4 (01:18→21:34)
[2020-07-03] MEDS: dexmedeTOMIDine 400 MCG/100 ML 400 MCG/100 ML BAG 37.08 MCG IV CONT (01:24)
[2020-07-03] MEDS: HALOPERIDOL LACTATE 5 MG/ML VIAL IM (04:00)
[2020-07-03] MEDS: dexmedeTOMIDine 400 MCG/100 ML 400 MCG/100 ML BAG 33.99 MCG IV CONT ×2 (04:25→07:21)
[2020-07-03 05:10] LABS: Alveolar/Arterial O2 Gradient 38.3 mmHg; Base Excess ABG 1.1 mEq/l (+/-2.0); Carboxyhemoglobin 0.2 % THb (0-2.0); Fractional Inspired Oxygen 21 %; HCO3 ABG 25.3 mEq/l (22.0-26.0); Hemoglobin 12.5 g/dL (14.0-18.0); Mean Corpuscular HGB Conc 34.7 g/dl (32-36); Mean Corpuscular Hemoglobin 33.2 pg (26-34); Mean Corpuscular Volume 95.5 fl (80-100); Mean Platelet Volume 9.1 fl (7.4-10.4); Methemoglobin ABG 0.3 %THb (0-1.5); Oxygen Content ABG 17.3 %vol (16.0-22.0); Oxygen Saturation ABG 93.4 % (95.0-100.0); Oxyhemoglobin 92.4 % THb (90.0-100.0); PCO2 ABG 38.7 mmHg (35.0-45.0); PO2 ABG 65.1 mmHg (80.0-100.0); Platelet Count Result 197 k/mm3 (150-375); Red Blood Count 3.77 M/mm3 (4.6-6.20); Red Cell Distribution Width 12.2 % (11.5-14.5); Reduced Hemoglobin 7.1 %THb (0-5.0); Total Hemoglobin 13.3 g/dL (12.0-18.0); White Blood Count 8.3 K/mm3 (4.5-10.0); pH ABG 7.433 (7.350-7.450)
[2020-07-03 05:11] LABS: Device ROOM AIR; Modified Allen's Test Unable to perform; Site Drawn RIGHT RADIAL
[2020-07-03 05:31] LABS: Anion Gap 4 mmol/L (8-16); Blood Urea Nitrogen 13 mg/dL (9-20); Calcium 8.3 mg/dL (8.4-10.2); Carbon Dioxide 28 mmol/L (22-30); Chloride 103 mmol/L (98-107); Estimated CRCL calculation 175 ml/min; Estimated Glomerular Filt Rate > 60; Glucose 120 mg/dL (75-110); Magnesium 2.2 mg/dL (1.6-2.3); Potassium 3.5 mmol/L (3.4-5.0); Sodium 135 mmol/L (137-145)
[2020-07-03] MEDS: CENTRAL LINE FLUSH 10 ML IV PUSH ×3 (05:43→21:36)
--- NOTE | 2020-07-03 09:51 | WPDINTPN ---
Progress Note: A&P Assessment and Plan (1) Respiratory failure, acute: Qualifiers: Respiratory failure complication: hypoxia Qualified Code(s): J96.01 - Acute respiratory failure with hypoxia Code(s): J96.00 - Acute respiratory failure, unspecified whether with hypoxia or hypercapnia Status: Acute Assessment and Plan: Acute Respiratory failure secondary to alcohol withdrawal and significant agitation. He had very difficult airway with significant airway trauma during intubation. Anesthesia were called in to help. Cricothyrotomy has been attempted as well. There was some bleeding from the wound and bedside exploration done by ENT and bleeder was ligated. Chest x-ray shows airspace opacities of the mid and lower lung zones with improvement at the right lung base, consistent with atelectasis versus pneumonia.. Patient is afebrile and WBC is normal. Hold off antibiotics for now. He completed 2 courses of steroids. Trach was planned but that was put on hold because of him having good air leak. He was extubated on 07/01. Patient was extubated. Post extubation he had no stridor he was agitated and confused. ENT and Anesthesia Service was at the bedside after extubation but did not require any intervention. He maintained his oxygenation without any respiratory distress and had good cough reflex CT soft tissue 06/24/2020 showed mild right tonsillar swelling otherwise unremarkable. Has received steroid twice already. Continue Bronchodilators. He is currently on Precedex drip for his significant confusion and agitation. He is on end-tidal CO2 with values ranging in mid 20s and early 30s. I will try to avoid intubation and will keep it for the last resort only. He is currently on room air. Speech eval performed yesterday and was allowed phase 2 diet.. PT OT follow-up. (2) Acute alcohol intoxication delirium with moderate or severe use disorder: Code(s): F10.221 - Alcohol dependence with intoxication delirium Status: Acute Assessment and Plan: He is currently on Precedex drip. Wean Precedex drip if tolerated. Continue in end tidal volume monitoring. Ativan drip has been weaned off. Continue Haldol on a as needed basis along with Ativan. I have tried to explain to him the situation and requested to stay calm and cooperative with the staff His last intubation was due to agitation and now hoping to avoid re-intubation at this time and trying to control his agitation with medications and supportive care Continue thiamine and folic acid. (3) Difficult intubation: Qualifiers: Encounter type: sequela Qualified Code(s): T88.4XXS - Failed or difficult intubation, sequela Code(s): T88.4XXA - Failed or difficult intubation, initial encounter Status: Acute Assessment and Plan: Complicated by air way edema, bleeding and failed cricothyrodotomy. - oral 7.0 ET tube placed by Anesthesia, appreciate their help and support. - Neck exploration with control of hemorrhage performed by ENT 06/22 showed bleeding right anterior jugular vein which was ligated - Patient has completed 2 courses of Solu-Medrol. Further systemic steroids would not be helpful at this stage. -tracheostomy was initially planned but that has been put on hold as patient started to have some air leak since yesterday. - 07/01 patient extubated. No stridor heard post extubation. Continue to monitor (4) Rhabdomyolysis: Code(s): M62.82 - Rhabdomyolysis Status: Acute Assessment and Plan: No indications of Rhabdomyolysis, mild elevation in CK on admission resolved. (5) Electrolyte abnormality: Code(s): E87.8 - Other disorders of electrolyte and fluid balance, not elsewhere classified Status: Acute Assessment and Plan: Improved after replacement (6) Fever: Qualifiers: Fever type: unspecified Qualified Code(s): R50.9 - Fever, unspecified C
[2020-07-03] MEDS: FAMOTIDINE 20 MG/2 ML VIAL IV PUSH ×2 (10:30→21:36)
[2020-07-03] MEDS: ENOXAPARIN 40 MG/0.4 ML SYRINGE SUB-Q (10:30)
[2020-07-03] MEDS: dexmedeTOMIDine 400 MCG/100 ML 400 MCG/100 ML BAG 15.45 MCG IV CONT (11:33)
[2020-07-03] MEDS: chlordiazePOXIDE (*CRX) 25 MG CAPSULE 50 MG PO ×2 (12:04→22:45)
[2020-07-03] MEDS: THIAMINE HCL 100 MG TABLET PO (12:04)
[2020-07-03] MEDS: THERAPEUTIC MULTIVITAMINS/MINERALS TAB (*BKC) 1 TABLET PO (12:04)
[2020-07-03] MEDS: FOLIC ACID 1 MG TABLET PO (12:04)
[2020-07-03] MEDS: SODIUM CHLORIDE 0.9% IV 500 ML IV CONT (13:34)
[2020-07-03] MEDS: DEXTROSE 5%/0.9% SOD CHL 1,000 ML 75 ML IV CONT (14:35)
--- NOTE | 2020-07-03 14:37 | PM.IMPN ---
Progress Note: A&P Assessment and Plan (1) Alcohol withdrawal seizure: Qualifiers: Complication of substance-induced condition: with delirium Qualified Code(s): F10.231 - Alcohol dependence with withdrawal delirium; R56.9 - Unspecified convulsions Code(s): F10.239 - Alcohol dependence with withdrawal, unspecified; R56.9 - Unspecified convulsions Status: Acute Assessment and Plan: 07/03/20 14:37 Patient has not had anything to drink since evening, timeline fits with alcohol withdrawal seizure. Initiate seizure precautions. He has been started on scheduled Librium with Ativan available as needed. 06/21/20 15:09 Patient is a 50-year-old male with history of alcohol abuse and his last drink for on June 17, however on SundayJune 20, while sitting on the couch talking on the phone and his her loud noise and patient was having seizure-like activity lasting 3 minutes and patient was brought to the emergency department for further evaluate, his alcohol level was 0, patient is on benzodiazepine, while in the hospital patient has not any episode, patient was seen by Neurology and had a EEG which was normal, patient is started on Librium 50 mg every 6 hours and Ativan as needed, will continue to monitor the patient and check electrolytes and supplement, if remains clinically stable may discharge the patient home tomorrow 06/22 this is glove sewer hours call by the retail analytics manager the patient was agitated and may be going into DTs patient was given 3 mg of added and 50 mg Librium however patient was not calming down and was transferred to ICU for close observation while in ICU patient went into DTs and was fighting agitated and wanted to leave patient was restrained, patient was given 32 mg of Ativan or close to an hour and Valium, patient kept fighting and agitated it was decided to intubate the patient, initial mold breaker tried and was unsuccessful, anesthesiologist came in and patient was intubated, there was bleeding during the process and patient was seen ENT in the or as patient had bleeding veins and was repaired currently patient on versed drip and propfol drip as needed. 06/23 Patient remains intubated and sedated, plan is monitor on vent and sedation with versed and propfol as needed which is on hold, patient is being treated with methylprednisone, today will start NGtube feeding and possible reassess tomorrow and and further recommendation to follow. 06/24 patient has remained intubated and sedated requiring versed as well as propfol patient is being treated with treated with methylprednisone, started NGtube feeding on 06/23 and possible reassess tomorrow and and further recommendation to follow. Appreciate mold breaker 06/28/20 14:29 patient has remained intubated and sedated requiring versed as well as propfol patient was treated with treated with methylprednisone, started NGtube feeding on 06/23 still requiring sedation with Versed and propfol was resumed on 06/27 is patient is showing agitation and withdrawal of alcohol, it has been 7 days unable to wean the patient off ventilator mold breaker recommending tract an ENT has been consulted further recommendation to follow. 06/29 patient still remains intubated day 7, d/w mold breaker swelling along ET is improving as patient had air leak along ET tube suggesting swelling is improving and attempts can be made t wean patient off the ventilator, patient remains sedated with Versed and propfol, patient will be seen by ENT on if there is no clinical improvement and off the vent, patient may need trach, will continue to monitor and appreciate mold breaker. 06/30 patient still remains intubated day 8th, patient was given trial of SBT however he was not able to tolerate, versed was weaned off he is now Precedex and on propfol, will continue to monitor. 07/01 today patient was just extubated and still somewhat aggitated, on precedex, seen by mold breaker
[2020-07-03] MEDS: HALOPERIDOL LACTATE 5 MG/ML VIAL 2.5 MG IM (16:20)
[2020-07-03] MEDS: dexmedeTOMIDine 400 MCG/100 ML 400 MCG/100 ML BAG 12.36 MCG IV CONT (18:35)
[2020-07-04] VITALS (16 sets, daily range): BP systolic 98–152; BP diastolic 59–98; PULSE 58–100; RESP 15–31; TEMP 36.2–36.9; O2SAT 94–100
[2020-07-04] MEDS: AMPICILLIN SULB 3 GM/NS 100 ML 3 GM/100 ML VIAL IVPB ×4 (02:28→19:58)
[2020-07-04] MEDS: dexmedeTOMIDine 400 MCG/100 ML 400 MCG/100 ML BAG 12.36 MCG IV CONT (02:29)
[2020-07-04] MEDS: ALPRAZolam (*CRX) 0.5 MG TABLET PO (04:00)
--- NOTE | 2020-07-04 04:00 | PC.NURSE ---
One-time xanax order obtained for rass of +1.
[2020-07-04] MEDS: chlordiazePOXIDE (*CRX) 25 MG CAPSULE 50 MG PO (05:24)
[2020-07-04] MEDS: CENTRAL LINE FLUSH 10 ML IV PUSH ×3 (05:25→21:21)
[2020-07-04] MEDS: DEXTROSE 5%/0.9% SOD CHL 1,000 ML 75 ML IV CONT (05:40)
[2020-07-04 06:09] LABS: Hematocrit 34.6 % (42.0-52.0); Hemoglobin 11.7 g/dL (14.0-18.0); Mean Corpuscular HGB Conc 33.8 g/dl (32-36); Mean Corpuscular Hemoglobin 32.6 pg (26-34); Mean Corpuscular Volume 96.4 fl (80-100); Mean Platelet Volume 9.5 fl (7.4-10.4); Platelet Count Result 225 k/mm3 (150-375); Red Blood Count 3.59 M/mm3 (4.6-6.20); Red Cell Distribution Width 12.3 % (11.5-14.5); White Blood Count 5.8 K/mm3 (4.5-10.0)
[2020-07-04 06:30] LABS: Anion Gap 5 mmol/L (8-16); Blood Urea Nitrogen 11 mg/dL (9-20); Calcium 7.9 mg/dL (8.4-10.2); Carbon Dioxide 28 mmol/L (22-30); Chloride 105 mmol/L (98-107); Estimated CRCL calculation 172 ml/min; Estimated Glomerular Filt Rate > 60; Glucose 111 mg/dL (75-110); Magnesium 2.2 mg/dL (1.6-2.3); Potassium 3.5 mmol/L (3.4-5.0); Sodium 138 mmol/L (137-145)
[2020-07-04] MEDS: HALOPERIDOL 0.5 MG TABLET PO ×3 (08:33→21:20)
[2020-07-04] MEDS: HALOPERIDOL 1 MG TABLET 2 MG PO ×3 (08:33→21:20)
[2020-07-04] MEDS: THIAMINE HCL 100 MG TABLET PO (08:34)
[2020-07-04] MEDS: ENOXAPARIN 40 MG/0.4 ML SYRINGE SUB-Q (08:34)
[2020-07-04] MEDS: FOLIC ACID 1 MG TABLET PO (08:34)
[2020-07-04] MEDS: THERAPEUTIC MULTIVITAMINS/MINERALS TAB (*BKC) 1 TABLET PO (08:35)
[2020-07-04] MEDS: VENLAFAXINE HCL XR 75 MG CAP.ER.24H 150 MG PO (10:12)
--- NOTE | 2020-07-04 10:42 | PM.IMPN ---
Progress Note: A&P Assessment and Plan (1) Alcohol withdrawal seizure: Qualifiers: Complication of substance-induced condition: with delirium Qualified Code(s): F10.231 - Alcohol dependence with withdrawal delirium; R56.9 - Unspecified convulsions Code(s): F10.239 - Alcohol dependence with withdrawal, unspecified; R56.9 - Unspecified convulsions Status: Acute Assessment and Plan: 07/04/20 10:42 Patient has not had anything to drink since evening, timeline fits with alcohol withdrawal seizure. Initiate seizure precautions. He has been started on scheduled Librium with Ativan available as needed. 06/21/20 15:09 Patient is a 50-year-old male with history of alcohol abuse and his last drink for on June 17, however on SundayJune 20, while sitting on the couch talking on the phone and his her loud noise and patient was having seizure-like activity lasting 3 minutes and patient was brought to the emergency department for further evaluate, his alcohol level was 0, patient is on benzodiazepine, while in the hospital patient has not any episode, patient was seen by Neurology and had a EEG which was normal, patient is started on Librium 50 mg every 6 hours and Ativan as needed, will continue to monitor the patient and check electrolytes and supplement, if remains clinically stable may discharge the patient home tomorrow 06/22 this is jewelry sales associate hours call by the pathology teacher the patient was agitated and may be going into DTs patient was given 3 mg of added and 50 mg Librium however patient was not calming down and was transferred to ICU for close observation while in ICU patient went into DTs and was fighting agitated and wanted to leave patient was restrained, patient was given 32 mg of Ativan or close to an hour and Valium, patient kept fighting and agitated it was decided to intubate the patient, initial manager assisted living tried and was unsuccessful, anesthesiologist came in and patient was intubated, there was bleeding during the process and patient was seen ENT in the or as patient had bleeding veins and was repaired currently patient on versed drip and propfol drip as needed. 06/23 Patient remains intubated and sedated, plan is monitor on vent and sedation with versed and propfol as needed which is on hold, patient is being treated with methylprednisone, today will start NGtube feeding and possible reassess tomorrow and and further recommendation to follow. 06/24 patient has remained intubated and sedated requiring versed as well as propfol patient is being treated with treated with methylprednisone, started NGtube feeding on 06/23 and possible reassess tomorrow and and further recommendation to follow. Appreciate manager assisted living 06/28/20 14:29 patient has remained intubated and sedated requiring versed as well as propfol patient was treated with treated with methylprednisone, started NGtube feeding on 06/23 still requiring sedation with Versed and propfol was resumed on 06/27 is patient is showing agitation and withdrawal of alcohol, it has been 7 days unable to wean the patient off ventilator manager assisted living recommending tract an ENT has been consulted further recommendation to follow. 06/29 patient still remains intubated day 7, d/w manager assisted living swelling along ET is improving as patient had air leak along ET tube suggesting swelling is improving and attempts can be made t wean patient off the ventilator, patient remains sedated with Versed and propfol, patient will be seen by ENT on if there is no clinical improvement and off the vent, patient may need trach, will continue to monitor and appreciate manager assisted living. 06/30 patient still remains intubated day 8th, patient was given trial of SBT however he was not able to tolerate, versed was weaned off he is now Precedex and on propfol, will continue to monitor. 07/01 today patient was just extubated and still somewhat aggitated, on precedex, seen by manager assisted living
--- NOTE | 2020-07-04 11:39 | PC.NURSE ---
This patient, Del Souza, was transferred to [ [address] [place] [address] [id number]] on 07/04/20 at 1139. Personal belongings sent with patient. Report given to [crystal [email or web address]]. Appropriate documentation sent with patient.
--- NOTE | 2020-07-04 11:49 | WPDINTPN ---
Progress Note: A&P Assessment and Plan (1) Respiratory failure, acute: Qualifiers: Respiratory failure complication: hypoxia Qualified Code(s): J96.01 - Acute respiratory failure with hypoxia Code(s): J96.00 - Acute respiratory failure, unspecified whether with hypoxia or hypercapnia Status: Acute Assessment and Plan: Acute Respiratory failure secondary to alcohol withdrawal and significant agitation. He had very difficult airway with significant airway trauma during intubation. Anesthesia were called in to help. Cricothyrotomy has been attempted as well. There was some bleeding from the wound and bedside exploration done by ENT and bleeder was ligated. Chest x-ray shows airspace opacities of the mid and lower lung zones with improvement at the right lung base, consistent with atelectasis versus pneumonia.. Patient is afebrile and WBC is normal. Antibiotics were not initiated. He completed 2 courses of steroids. Trach was planned but that was put on hold because of him having good air leak. He was extubated on 07/01. Post extubation he had no stridor he was agitated and confused. ENT and Anesthesia Service was at the bedside after extubation but did not require any intervention. He maintained his oxygenation without any respiratory distress and had good cough reflex CT soft tissue 06/24/2020 showed mild right tonsillar swelling otherwise unremarkable. Has received steroid twice already. Continue Bronchodilators. Precedex drip has been weaned off. He is currently on Haldol on standing basis which can be weaned down to p.r.n. in the next 2-3 days and Ativan on p.r.n. basis. He responded very well to Haldol and we were able to wean him off from Precedex and Ativan drip after initiation of Haldol. He is currently on room air. Speech eval performed yesterday and was allowed phase 2 diet. Advanced diet as tolerated. PT OT follow-up. (2) Acute alcohol intoxication delirium with moderate or severe use disorder: Code(s): F10.221 - Alcohol dependence with intoxication delirium Status: Acute Assessment and Plan: He has been weaned off from Precedex drip. He was on Ativan drip at some point. He responded very well to Haldol and we were able to wean off Precedex as well as Ativan drip very aggressively after he was started on Haldol. Haldol on standing basis for the next 2-3 days and then may transition him to p.r.n.. Decrease Librium dose today. Continue Ativan on p.r.n. basis. Continue thiamine and folic acid. (3) Difficult intubation: Qualifiers: Encounter type: sequela Qualified Code(s): T88.4XXS - Failed or difficult intubation, sequela Code(s): T88.4XXA - Failed or difficult intubation, initial encounter Status: Acute Assessment and Plan: Complicated by air way edema, bleeding and failed cricothyrodotomy. - oral 7.0 ET tube placed by Anesthesia, appreciate their help and support. - Neck exploration with control of hemorrhage performed by ENT 06/22 showed bleeding right anterior jugular vein which was ligated - Patient has completed 2 courses of Solu-Medrol. Further systemic steroids would not be helpful at this stage. -tracheostomy was initially planned but that has been put on hold as patient started to have some air leak since yesterday. - 07/01 patient extubated. No stridor heard post extubation. Continue to monitor (4) Rhabdomyolysis: Code(s): M62.82 - Rhabdomyolysis Status: Acute Assessment and Plan: No indications of Rhabdomyolysis, mild elevation in CK on admission resolved. (5) Electrolyte abnormality: Code(s): E87.8 - Other disorders of electrolyte and fluid balance, not elsewhere classified Status: Acute Assessment and Plan: Improved after replacement (6) Fever: Qualifiers: Fever type: unspecified Qualified Code(s): R50.9 - Fever, unspecified Code(s): R50.9 - Fev
[2020-07-04] MEDS: chlordiazePOXIDE (*CRX) 25 MG CAPSULE PO ×2 (14:05→21:20)
[2020-07-04] MEDS: ALTEPLASE 2 MG VIAL (CATHFLO) IV PUSH (23:23)
[2020-07-05] MEDS: DEXTROSE 5%/0.9% SOD CHL 1,000 ML 75 ML IV CONT ×2 (01:31→12:51)
[2020-07-05 02:00] VITALS: BP 105/47; PULSE 71; RESP 16; TEMP 36.4; O2SAT 97
[2020-07-05] MEDS: AMPICILLIN SULB 3 GM/NS 100 ML 3 GM/100 ML VIAL IVPB ×3 (02:46→13:20)
[2020-07-05] MEDS: HALOPERIDOL 1 MG TABLET 2 MG PO ×3 (05:15→21:22)
[2020-07-05] MEDS: HALOPERIDOL 0.5 MG TABLET PO ×3 (05:15→21:22)
[2020-07-05] MEDS: chlordiazePOXIDE (*CRX) 25 MG CAPSULE PO ×3 (05:15→21:22)
[2020-07-05] MEDS: CENTRAL LINE FLUSH 10 ML IV PUSH ×2 (05:16→13:23)
[2020-07-05 05:20] VITALS: BP 138/84; PULSE 71; RESP 16; TEMP 36.6; O2SAT 95
[2020-07-05 05:38] LABS: Hematocrit 33.3 % (42.0-52.0); Hemoglobin 11.2 g/dL (14.0-18.0); Mean Corpuscular HGB Conc 33.6 g/dl (32-36); Mean Corpuscular Hemoglobin 32.8 pg (26-34); Mean Corpuscular Volume 97.7 fl (80-100); Mean Platelet Volume 9.3 fl (7.4-10.4); Platelet Count Result 231 k/mm3 (150-375); Red Blood Count 3.41 M/mm3 (4.6-6.20); Red Cell Distribution Width 12.5 % (11.5-14.5); White Blood Count 4.1 K/mm3 (4.5-10.0)
[2020-07-05 05:55] LABS: Anion Gap 3 mmol/L (8-16); Blood Urea Nitrogen 8 mg/dL (9-20); Calcium 7.9 mg/dL (8.4-10.2); Carbon Dioxide 29 mmol/L (22-30); Chloride 106 mmol/L (98-107); Estimated CRCL calculation 171 ml/min; Estimated Glomerular Filt Rate > 60; Glucose 106 mg/dL (75-110); Magnesium 2.1 mg/dL (1.6-2.3); Potassium 3.3 mmol/L (3.4-5.0); Sodium 138 mmol/L (137-145)
[2020-07-05] MEDS: ENOXAPARIN 40 MG/0.4 ML SYRINGE SUB-Q (08:02)
[2020-07-05] MEDS: THERAPEUTIC MULTIVITAMINS/MINERALS TAB (*BKC) 1 TABLET PO (08:02)
[2020-07-05] MEDS: VENLAFAXINE HCL XR 75 MG CAP.ER.24H 150 MG PO (08:02)
[2020-07-05] MEDS: polyethylene glycoL 3350 17 GM POWD.PACK PO (08:02)
[2020-07-05] MEDS: FOLIC ACID 1 MG TABLET PO (08:02)
[2020-07-05] MEDS: THIAMINE HCL 100 MG TABLET PO (08:02)
[2020-07-05 09:55] VITALS: BP 128/71; PULSE 87; RESP 18; TEMP 37.1; O2SAT 98
--- NOTE | 2020-07-05 11:32 | PM.IMPN ---
Progress Note: A&P Assessment and Plan (1) Alcohol withdrawal seizure: Qualifiers: Complication of substance-induced condition: with delirium Qualified Code(s): F10.231 - Alcohol dependence with withdrawal delirium; R56.9 - Unspecified convulsions Code(s): F10.239 - Alcohol dependence with withdrawal, unspecified; R56.9 - Unspecified convulsions Status: Acute Assessment and Plan: 07/05/20 11:32 Patient has not had anything to drink since evening, timeline fits with alcohol withdrawal seizure. Initiate seizure precautions. He has been started on scheduled Librium with Ativan available as needed. 06/21/20 15:09 Patient is a 50-year-old male with history of alcohol abuse and his last drink for on June 17, however on SundayJune 20, while sitting on the couch talking on the phone and his her loud noise and patient was having seizure-like activity lasting 3 minutes and patient was brought to the emergency department for further evaluate, his alcohol level was 0, patient is on benzodiazepine, while in the hospital patient has not any episode, patient was seen by Neurology and had a EEG which was normal, patient is started on Librium 50 mg every 6 hours and Ativan as needed, will continue to monitor the patient and check electrolytes and supplement, if remains clinically stable may discharge the patient home tomorrow 06/22 this is student life vice president hours call by the foreign student adviser teacher the patient was agitated and may be going into DTs patient was given 3 mg of added and 50 mg Librium however patient was not calming down and was transferred to ICU for close observation while in ICU patient went into DTs and was fighting agitated and wanted to leave patient was restrained, patient was given 32 mg of Ativan or close to an hour and Valium, patient kept fighting and agitated it was decided to intubate the patient, initial auxiliary operator tried and was unsuccessful, anesthesiologist came in and patient was intubated, there was bleeding during the process and patient was seen ENT in the or as patient had bleeding veins and was repaired currently patient on versed drip and propfol drip as needed. 06/23 Patient remains intubated and sedated, plan is monitor on vent and sedation with versed and propfol as needed which is on hold, patient is being treated with methylprednisone, today will start NGtube feeding and possible reassess tomorrow and and further recommendation to follow. 06/24 patient has remained intubated and sedated requiring versed as well as propfol patient is being treated with treated with methylprednisone, started NGtube feeding on 06/23 and possible reassess tomorrow and and further recommendation to follow. Appreciate auxiliary operator 06/28/20 14:29 patient has remained intubated and sedated requiring versed as well as propfol patient was treated with treated with methylprednisone, started NGtube feeding on 06/23 still requiring sedation with Versed and propfol was resumed on 06/27 is patient is showing agitation and withdrawal of alcohol, it has been 7 days unable to wean the patient off ventilator auxiliary operator recommending tract an ENT has been consulted further recommendation to follow. 06/29 patient still remains intubated day 7, d/w auxiliary operator swelling along ET is improving as patient had air leak along ET tube suggesting swelling is improving and attempts can be made t wean patient off the ventilator, patient remains sedated with Versed and propfol, patient will be seen by ENT on if there is no clinical improvement and off the vent, patient may need trach, will continue to monitor and appreciate auxiliary operator. 06/30 patient still remains intubated day 8th, patient was given trial of SBT however he was not able to tolerate, versed was weaned off he is now Precedex and on propfol, will continue to monitor. 07/01 today patient was just extubated and still somewhat aggitated, on precedex, seen by auxiliary operator
[2020-07-05] MEDS: POTASSIUM CHLORIDE 20 MEQ TABLET 40 MEQ PO (13:25)
[2020-07-05 14:00] VITALS: BP 156/85; PULSE 77; RESP 16; TEMP 36.9; O2SAT 99
--- NOTE | 2020-07-05 14:14 | PCDIET ---
Nutrition Follow-Up Complete: Inadequate oral intake related to oral intubation as evidenced by NPO status. Patient to meet estimated nutritional needs. Goal: goal not met; continue goal Pt current nutrition is Regular pureed level 4; level two thickened liquids Nutrition recommendation: agree; will offer Ensure Enlive BID to help meet needs Last recorded weight is 120 kg, up from 111kg on assessment Bowel Motility: BM+ today Labs Reviewed:Hgb/Hct 11.2, 33.3, K+ 3.3, BUN 8, Ca 7.9, Cr .60 Meds Noted: Agree with multivitamin Additional Notes: Pt was at goal of Jevity 1.2 on 06/29. Diet advanced on 07/02 to thickened liquids and a puree diet. No diet intake documentation over the weekend. Intake today at 0%. We will send Enlive BID while PO intake is poor to help meet needs. If pt PO intake does not improve in the next day or two, reinitiation of Jevity 1.2 would be appropriate. Follow up every 3 days.
[2020-07-05 18:00] VITALS: BP 128/69; PULSE 75; RESP 16; TEMP 36.7; O2SAT 96
[2020-07-05] MEDS: ENOXAPARIN 120 MG/0.8 ML SYRINGE SUB-Q (21:44)
[2020-07-05 22:01] VITALS: BP 133/87; PULSE 84; RESP 16; TEMP 36.3; O2SAT 100
[2020-07-06 01:51] VITALS: BP 136/83; PULSE 81; RESP 18; TEMP 36.4; O2SAT 98
[2020-07-06] MEDS: chlordiazePOXIDE (*CRX) 25 MG CAPSULE PO ×2 (05:32→14:09)
[2020-07-06] MEDS: HALOPERIDOL 1 MG TABLET 2 MG PO ×2 (05:32→14:09)
[2020-07-06] MEDS: HALOPERIDOL 0.5 MG TABLET PO ×2 (05:32→14:08)
[2020-07-06 05:36] LABS: Hematocrit 35.1 % (42.0-52.0); Hemoglobin 11.8 g/dL (14.0-18.0); Mean Corpuscular HGB Conc 33.6 g/dl (32-36); Mean Corpuscular Hemoglobin 32.8 pg (26-34); Mean Corpuscular Volume 97.5 fl (80-100); Mean Platelet Volume 9.1 fl (7.4-10.4); Platelet Count Result 237 k/mm3 (150-375); Red Cell Distribution Width 12.4 % (11.5-14.5)
[2020-07-06 05:49] LABS: Anion Gap 3 mmol/L (8-16); Blood Urea Nitrogen 8 mg/dL (9-20); Calcium 7.5 mg/dL (8.4-10.2); Carbon Dioxide 27 mmol/L (22-30); Chloride 107 mmol/L (98-107); Estimated CRCL calculation 202 ml/min; Estimated Glomerular Filt Rate > 60; Glucose 97 mg/dL (75-110); Potassium 3.6 mmol/L (3.4-5.0); Sodium 137 mmol/L (137-145)
[2020-07-06 06:51] VITALS: BP 115/73; PULSE 73; RESP 18; TEMP 36.7; O2SAT 95
[2020-07-06] MEDS: FOLIC ACID 1 MG TABLET PO (08:53)
[2020-07-06] MEDS: ENOXAPARIN 120 MG/0.8 ML SYRINGE SUB-Q (08:53)
[2020-07-06] MEDS: THIAMINE HCL 100 MG TABLET PO (08:53)
[2020-07-06] MEDS: VENLAFAXINE HCL XR 75 MG CAP.ER.24H 150 MG PO (08:54)
[2020-07-06] MEDS: POTASSIUM CHLORIDE 20 MEQ TABLET 40 MEQ PO (08:54)
[2020-07-06] MEDS: THERAPEUTIC MULTIVITAMINS/MINERALS TAB (*BKC) 1 TABLET PO (08:55)
--- NOTE | 2020-07-06 10:39 | PC.NURSE ---
On 07/06/20, the student, [Maricel Ibarra ], provided care and completed [facility] documentation on this patient. I have reviewed the student's documentation and agree with the findings.
[2020-07-06] MEDS: ACETAMINOPHEN 325 MG TABLET 650 MG PO (11:39)
[2020-07-06 12:00] VITALS: BP 148/84; PULSE 64; RESP 18; TEMP 36.5; O2SAT 98
--- NOTE | 2020-07-06 13:25 | PM.IMPN ---
Progress Note: A&P Assessment and Plan (1) Alcohol withdrawal seizure: Qualifiers: Complication of substance-induced condition: with delirium Qualified Code(s): F10.231 - Alcohol dependence with withdrawal delirium; R56.9 - Unspecified convulsions Code(s): F10.239 - Alcohol dependence with withdrawal, unspecified; R56.9 - Unspecified convulsions Status: Acute Assessment and Plan: 07/06/20 13:25 Patient has not had anything to drink since evening, timeline fits with alcohol withdrawal seizure. Initiate seizure precautions. He has been started on scheduled Librium with Ativan available as needed. 06/21/20 Patient is a 50-year-old male with history of alcohol abuse and his last drink for on June 17, however on SundayJune 20, while sitting on the couch talking on the phone and his her loud noise and patient was having seizure-like activity lasting 3 minutes and patient was brought to the emergency department for further evaluate, his alcohol level was 0, patient is on benzodiazepine, while in the hospital patient has not any episode, patient was seen by Neurology and had a EEG which was normal, patient is started on Librium 50 mg every 6 hours and Ativan as needed, will continue to monitor the patient and check electrolytes and supplement, if remains clinically stable may discharge the patient home tomorrow 06/22 this is civil service worker hours call by the office bookkeeper the patient was agitated and may be going into DTs patient was given 3 mg of added and 50 mg Librium however patient was not calming down and was transferred to ICU for close observation while in ICU patient went into DTs and was fighting agitated and wanted to leave patient was restrained, patient was given 32 mg of Ativan or close to an hour and Valium, patient kept fighting and agitated it was decided to intubate the patient, initial continuous loft operator tried and was unsuccessful, anesthesiologist came in and patient was intubated, there was bleeding during the process and patient was seen ENT in the or as patient had bleeding veins and was repaired currently patient on versed drip and propfol drip as needed. 06/23 Patient remains intubated and sedated, plan is monitor on vent and sedation with versed and propfol as needed which is on hold, patient is being treated with methylprednisone, today will start NGtube feeding and possible reassess tomorrow and and further recommendation to follow. 06/24 patient has remained intubated and sedated requiring versed as well as propfol patient is being treated with treated with methylprednisone, started NGtube feeding on 06/23 and possible reassess tomorrow and and further recommendation to follow. Appreciate continuous loft operator 06/28/20 14:29 patient has remained intubated and sedated requiring versed as well as propfol patient was treated with treated with methylprednisone, started NGtube feeding on 06/23 still requiring sedation with Versed and propfol was resumed on 06/27 is patient is showing agitation and withdrawal of alcohol, it has been 7 days unable to wean the patient off ventilator continuous loft operator recommending tract an ENT has been consulted further recommendation to follow. 06/29 patient still remains intubated day 7, d/w continuous loft operator swelling along ET is improving as patient had air leak along ET tube suggesting swelling is improving and attempts can be made t wean patient off the ventilator, patient remains sedated with Versed and propfol, patient will be seen by ENT on if there is no clinical improvement and off the vent, patient may need trach, will continue to monitor and appreciate continuous loft operator. 06/30 patient still remains intubated day 8th, patient was given trial of SBT however he was not able to tolerate, versed was weaned off he is now Precedex and on propfol, will continue to monitor. 07/01 today patient was just extubated and still somewhat aggitated, on precedex, seen by continuous loft operator and halle
--- NOTE | 2020-07-06 13:49 | PM.DS ---
DS: Admitting Diagnosis Admitting Diagnosis Admitting Diagnosis: Chief Complaint: Seizure activity. DS: Discharge Diagnosis Discharge Diagnosis (1) Alcohol withdrawal seizure: Qualifiers: Complication of substance-induced condition: with delirium Qualified Code(s): F10.231 - Alcohol dependence with withdrawal delirium; R56.9 - Unspecified convulsions Code(s): F10.239 - Alcohol dependence with withdrawal, unspecified; R56.9 - Unspecified convulsions Status: Acute Assessment and Plan: 07/06/20 13:25 Patient has not had anything to drink since evening, timeline fits with alcohol withdrawal seizure. Initiate seizure precautions. He has been started on scheduled Librium with Ativan available as needed. 06/21/20 Patient is a 50-year-old male with history of alcohol abuse and his last drink for on June 17, however on SundayJune 20, while sitting on the couch talking on the phone and his her loud noise and patient was having seizure-like activity lasting 3 minutes and patient was brought to the emergency department for further evaluate, his alcohol level was 0, patient is on benzodiazepine, while in the hospital patient has not any episode, patient was seen by Neurology and had a EEG which was normal, patient is started on Librium 50 mg every 6 hours and Ativan as needed, will continue to monitor the patient and check electrolytes and supplement, if remains clinically stable may discharge the patient home tomorrow 06/22 this is early childhood hours call by the verse writer the patient was agitated and may be going into DTs patient was given 3 mg of added and 50 mg Librium however patient was not calming down and was transferred to ICU for close observation while in ICU patient went into DTs and was fighting agitated and wanted to leave patient was restrained, patient was given 32 mg of Ativan or close to an hour and Valium, patient kept fighting and agitated it was decided to intubate the patient, initial lens blocker tried and was unsuccessful, anesthesiologist came in and patient was intubated, there was bleeding during the process and patient was seen ENT in the or as patient had bleeding veins and was repaired currently patient on versed drip and propfol drip as needed. 06/23 Patient remains intubated and sedated, plan is monitor on vent and sedation with versed and propfol as needed which is on hold, patient is being treated with methylprednisone, today will start NGtube feeding and possible reassess tomorrow and and further recommendation to follow. 06/24 patient has remained intubated and sedated requiring versed as well as propfol patient is being treated with treated with methylprednisone, started NGtube feeding on 06/23 and possible reassess tomorrow and and further recommendation to follow. Appreciate lens blocker 06/28/20 14:29 patient has remained intubated and sedated requiring versed as well as propfol patient was treated with treated with methylprednisone, started NGtube feeding on 06/23 still requiring sedation with Versed and propfol was resumed on 06/27 is patient is showing agitation and withdrawal of alcohol, it has been 7 days unable to wean the patient off ventilator lens blocker recommending tract an ENT has been consulted further recommendation to follow. 06/29 patient still remains intubated day 7, d/w lens blocker swelling along ET is improving as patient had air leak along ET tube suggesting swelling is improving and attempts can be made t wean patient off the ventilator, patient remains sedated with Versed and propfol, patient will be seen by ENT on if there is no clinical improvement and off the vent, patient may need trach, will continue to monitor and appreciate lens blocker. 06/30 patient still remains intubated day 8th, patient was given trial of SBT however he was not able to tolerate, versed was weaned off he is now Precedex and on propfol, will continue to monitor.
== END 2020-07-06 15:44 | disposition home or self-care (01) | DRG 3 ==
LOC: ANHED 17:01 → ANH2MED 17:35 → ANHICU 06-22 08:12 → ANH2MED 07-04 11:28
PROVIDERS: Internal Medicine; Internal Medicine Critical Care Medicine; Otolaryngology; Physician Assistant; Admitting Provider Internal Medicine; Emergency Provider Emergency Medicine; PCP Internal Medicine; Visit Provider Family Medicine
PROC: 0W3Q0ZZ Control Bleeding in Respiratory Tract, Open Approach (ICD-10-PCS; principal; 2020-06-22 12:30)
DX: F10.231 Alcohol dependence with withdrawal delirium (principal); J96.01 Acute respiratory failure with hypoxia; I97.52 Accidental puncture and laceration of a circulatory system organ or structure during other procedure; G72.81 Critical illness myopathy; I82.611 Acute embolism and thrombosis of superficial veins of right upper extremity; E78.5 Hyperlipidemia, unspecified; I10 Essential (primary) hypertension; F41.9 Anxiety disorder, unspecified; Z72.0 Tobacco use; G47.33 Obstructive sleep apnea (adult) (pediatric); R56.9 Unspecified convulsions; T88.4XXA Failed or difficult intubation, initial encounter; I80.9 Phlebitis and thrombophlebitis of unspecified site
CPT/HCPCS: 31500; 36415; 36569; 36600; 70450; 70490; 71045; 71250; 74018; 80048; 80053; 80074; 80202; 80307; 81001; 82375; 82550; 82607; 82746; 82805; 82948; 83050; 83735; 84439; 84443; 84478; 84480; 84600; 85025; 85027; 85055; 85610; 85730; 87040; 87070; 87086; 87205; 92610; 93005; 93970; 93971; 94002; 94003; 95816; 96365; 96366; 96372; 96375; 96376; 97110; 97116; 97162; 97165; 99285; A9270; C1713; C1751; C9113; G0378; J0131; J0295; J0690; J1630; J1650; J1940; J2060; J2250; J2370; J2704; J2920; J2930; J2997; J3010; J3360; J3370; J3411; J3475; J7030; J7040; J7042; J7120

== ENCOUNTER 2020-11-01 14:27 | Outpatient (CLI) | payer BC, SELFPAY ==
--- NOTE | ~2020-11-01 | MR_ITS ---
EXAMINATION: MR lumbar spine wo con DATE: 11/01/2020 15:59 INDICATION: Lumbar radiculopathy. TECHNIQUE: Magnetic resonance imaging (MRI) of the lumbar spine was performed without intravenous con trast. Sequences included sagittal T2-weighted FSE, sagittal T2-weighted FS FSE, sagittal T1-weighted FSE, and axial T2-weighted FSE. COMPARISON: None FINDINGS: There is 8 degrees dextrocurvature of lumbar spine. L5 is a transitional segment. There is 3 mm retrolisthesis of L3 on L4 and L4 on L5. Vertebral body heights are normal. There is mildly decr eased disc height at T12-L1 and L2-L3. There is severely decreased disc height at L3-L4 and L4-L5 wit h endplate remodeling. The distal spinal cord signal intensity is normal. The conus medullaris is at T12. The following disc levels are specifically discussed: T12-L1: There is a left central extrusion. There is mild bilateral facet joint osteoarthritis. There is mild right neural foraminal stenosis. There is mild central canal stenosis. L1-L2: There is a central protrusion with annular fissure. There is mild right facet joint osteoarthr itis. There is no neural foraminal stenosis. There is mild central canal stenosis. L2-L3: The disc is bulging and has an annular fissure. There is mild bilateral facet joint osteoarthr itis. There is mild bilateral neural foraminal stenosis. There is mild central canal stenosis. L3-L4: The disc is bulging as an annular fissure. There is mild bilateral facet joint osteoarthritis. There is moderate bilateral neural foraminal stenosis. There is mild central canal stenosis. L4-L5: The disc is bulging and has an annular fissure. There is mild bilateral facet joint osteoarthr itis. There is moderate right and mild left neural foraminal stenosis. There is mild central canal st enosis. L5-S1: The disc does not extend beyond the endplate margin. There is no facet joint hypertrophy. Ther e is no neural foraminal stenosis. There is no central canal stenosis. IMPRESSION: 1. Severe lumbar spondylosis. Reviewed, dictated and finalized at location A.
== END 2020-11-01 14:28 | disposition home or self-care (01) ==
PROVIDERS: PCP Internal Medicine; Visit Provider Internal Medicine
DX: M47.26 Other spondylosis with radiculopathy, lumbar region (principal)
CPT/HCPCS: 72148

== ENCOUNTER 2021-02-10 14:12 | Outpatient (CLI) | payer BC, SELFPAY ==
--- NOTE | ~2021-02-10 | US_ITS ---
EXAMINATION: US carotid duplex BI DATE: 02/10/2021 14:43 INDICATION: Vision loss TECHNIQUE: Grayscale, color Doppler, and pulsed Doppler images of the cervical carotid arteries were obtained. The degree of vessel stenosis is placed in one of the following categories: normal, <50%, 5 0-69%, >=70% but less than near-occlusion, near-occlusion, or total occlusion. Note that percent sten osis relative to normal distal artery lumen diameter is indirectly measured from velocity measurement s as described by Mnio, et al. Radiology 2003; 229:340-346. Notes: Normal: Peak systolic velocity <125 centimeters/sec and no plaque <50%. Peak systolic velocity <125 ( EDV <40; ICA/CCA PSV ratio <2.0; used these factors only a tandem lesions or low cardiac output or co ntralateral disease) 50-69 %: PSV 125-230 (EDV 40-100; ratio 2-4) >= 70% but less than near occlusion: PSV greater than 230 (EDV > 100; ratio> 4.0) Near Occlusion: PSV that is variable; markedly narrowed lumen Occlusion: Absent flow on color/spectral Doppler and no lumen on crane scale. COMPARISON: None. FINDINGS: RIGHT: The right common carotid artery (CCA) peak systolic velocity (PSV) is 87 cm/s. The right internal car otid artery (ICA) PSV is 101 cm/s. The right ICA end-diastolic velocity (EDV) is 24 cm/s. The right I CA/CCA PSV ratio is 1.2. The external carotid artery (ECA) PSV is 148 cm/s. There is antegrade flow i n the right vertebral artery. LEFT: The left CCA PSV is 99 cm/s. The left ICA PSV is 123 cm/s. The left ICA EDV is 54 cm/s. The left ICA/ CCA PSV ratio is 1.2. The ECA PSV is 113 cm/s. There is antegrade flow in the left vertebral artery. IMPRESSION: 1. Less than 50% stenosis in the right internal carotid artery by sonographic criteria. 2. Less than 50% stenosis in the left internal carotid artery by sonographic criteria. Reviewed, dictated and finalized at location A. ERCIAL LINES ACCOUNT EXECUTIVE IMPRESSION: 1. Less than 50% stenosis in the right internal carotid artery by sonographic katelynn bermeo. 2. Less than 50% stenosis in the left internal carotid artery by sonographic tiffanie abbott.
== END 2021-02-10 14:13 | disposition home or self-care (01) ==
LOC: ANHIMG 14:16
PROVIDERS: PCP Internal Medicine; Visit Provider Internal Medicine
DX: H54.62 Unqualified visual loss, left eye, normal vision right eye (principal); I65.23 Occlusion and stenosis of bilateral carotid arteries
CPT/HCPCS: 93880

== ENCOUNTER 2021-09-29 17:06 | Emergency (ER) | payer BC, SELFPAY ==
[2021-09-29] VITALS (8 sets, daily range): BP systolic 137; BP diastolic 64; PULSE 64–90; RESP 11–25; TEMP 36.4; O2SAT 100
--- NOTE | 2021-09-29 17:48 | ED.GENADULT ---
HPI - General Adult General Chief complaint: Unspecified Stated complaint: dehydration , muscle cramps Time Seen by Provider: 09/29/21 17:08 Source: patient Mode of arrival: EMS Limitations: no limitations History of Present Illness HPI narrative: This is a 51 year old male that presents to the ER for dehydration. Reports he was working in a hot attic all day. He does not feel as though he was keeping up with hydration. When he got home from work he had diffuse myalgias. Patient presents to the emergency department via EMS for further evaluation and management. Denies fevers. Related Data Allergies Allergy/AdvReac Type Severity Reaction Status Date / Time No Known Allergies Allergy Verified 06/02/21 08:55 Review of Systems Review of Systems: CONSTITUTIONAL: Denies fever GASTROINTESTINAL: Denies nausea, vomiting GENITOURINARY: Denies dysuria MUSCULOSKELETAL: Reports myalgia. All systems reviewed & are unremarkable except as noted in HPI and below PMFSH Past Medical History Medical History Alcohol abuse Anxiety Depression Erectile dysfunction Hypertension Mixed hyperlipidemia Obstructive sleep apnea Untreated, patient cannot tolerate mask. Surgical History Surgical History History of orthopedic surgery ORIF right hand fracture with hardware. ORIF left ankle fracture. Family History Family History Other Cerebrovascular accident Diabetes mellitus Family history of cardiovascular disease Family history of hypercholesterolemia Hypertension Social History Social History (Updated 06/02/21 @ 09:35 by Richie Alva APRN) Social History: Surrogate decision maker: Peri Souza, . Code status: Full code. Smokeless tobacco user: chewing tobacco Second hand tobacco smoke exposure: Yes Alcohol intake: former Drinks per week: 0 Alcohol use details: Stopped drinking May 2020 after suffering an alcohol withdrawal seizure. Substance use: never Substance use type: does not use Additional living arrangements comments: Resides in [place] with his . 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 Gender identity (if verbalized by the patient): Male Sexual Orientation (if Verbalized by the Patient): Straight or Heterosexual Spiritual care concerns: No Exam Narrative: GENERAL: Well-appearing, well-nourished, and in no acute distress. HEAD: Normocephalic, atraumatic. EYES: EOMI. ENT: Mucous membranes moist. CHEST: Clear to auscultation. No respiratory distress. No wheezes rales or rhonchi HEART: Regular rate and rhythm. No murmur heard. Normal peripheral pulses. EXTREMITIES: Normal range of motion. No edema. SKIN: Warm, dry, no rash. NEURO: No focal deficits. Alert and oriented x3. PSYCH: Normal mood and affect Course Vital Signs Vital signs: Vital Signs Temperature 97.5 F L 09/29/21 17:06 Pulse Rate 76 09/29/21 17:06 Respiratory Rate 14 09/29/21 17:06 Blood Pressure 137/64 09/29/21 17:06 Pulse Oximetry 100 09/29/21 17:06 Oxygen Delivery Room Air 09/29/21 17:06 Temperature 97.5 F L 09/29/21 17:06 Pulse Rate 64 09/29/21 19:00 Respiratory Rate 13 09/29/21 19:00 Blood Pressure 137/64 09/29/21 17:06 Pulse Oximetry 100 09/29/21 17:23 Oxygen Delivery Room Air 09/29/21 17:06 Medical Decision Making MDM Narrative Medical decision making narrative: Patient presents to the emergency department for dehydration after working in a hot attic today. His vitals are stable. CBC without concerning findings. Metabolic panel without acute electrolyte derangements or kidney dysfunction. His blood sugar was a little bit low at 64, he ate with normalization in blood glucose. UA is without ketones or evidence of infection. Patient hydrated with 2
[2021-09-29 18:04] LABS: Basophils Percent Auto 0.5 % (0.2-1.2); Eosinophils Absolute Auto 0.1 K/mm3 (0-0.3); Eosinophils Percent Auto 1.2 % (0-4.4); Immature Granulocyte Absolute 0.02 K/mm3 (0.00-0.031); Immature Granulocyte Percent A 0.2 % (0-0.5); Lymphocytes Absolute Auto 1.71 K/mm3 (0.9-3.2); Lymphocytes Percent Auto 20.2 % (18.3-44.2); Mean Corpuscular HGB Conc 32.6 g/dl (32-36); Mean Corpuscular Hemoglobin 29.2 pg (26-34); Mean Corpuscular Volume 89.6 fl (80-100); Monocytes Absolute Auto 0.9 K/mm3 (0.1-0.6); Monocytes Percent Auto 10.8 % (2.6-8.5); Neutrophils Absolute Auto 5.7 K/mm3 (1.3-6.7); Neutrophils Percent Auto 67.1 % (45.5-73.1); Platelet Count Result 269 k/mm3 (150-375); Red Cell Distribution Width 13.9 % (11.5-14.5); White Blood Count 8.5 K/mm3 (4.5-10.0)
[2021-09-29 18:10] LABS: Alanine Aminotransferase 25 U/L (6-50); Albumin Level 4.6 g/dL (3.5-5.1); Alkaline Phosphatase 71 U/L (38-126); Anion Gap 10 mmol/L (8-16); Aspartate Amino Transferase 35 U/L (17-59); Bilirubin,Total 0.7 mg/dL (0.2-1.3); Blood Urea Nitrogen 16 mg/dL (9-20); Calcium 8.8 mg/dL (8.4-10.2); Carbon Dioxide 23 mmol/L (22-30); Chloride 98 mmol/L (98-107); Creatine Kinase 651 U/L (55-170); Estimated CRCL calculation 79 ml/min; Estimated Glomerular Filt Rate > 60; Glucose 64 mg/dL (65-110); Magnesium 2.7 mg/dL (1.6-2.3); Potassium 4.5 mmol/L (3.4-5.0); Sodium 131 mmol/L (137-145)
[2021-09-29] MEDS: SODIUM CHLORIDE 0.9% IV 1,000 ML 999 ML IV CONT (18:13)
--- NOTE | 2021-09-29 18:29 | PC.NURSE ---
Patient given meal and juice
[2021-09-29 18:35] LABS: Add Urine Microscopic? NO; Appearance Urine Clear (Clear); Bilirubin Urine Negative (Negative); Blood Urine Negative (Negative); Color Urine Yellow (Yellow); Glucose Urine UA Negative (Negative); Ketones Urine Negative (Negative); Leukocyte Esterase Ur Negative LEU/UL (Negative); Nitrate Urine Negative (Negative); Protein Urine Negative (Negative); Specific Grav Ur >= 1.030 (1.001-1.035); Urobilinogen Urine 0.2 mg/dL (<2.0); pH Urine 5.5 (5.0-9.0)
[2021-09-29] MEDS: LACTATED RINGERS 1,000 ML 999 ML IV CONT (19:04)
[2021-09-29 20:08] LABS: Glucose Point of Care 99 mg/dl (65-105)
== END 2021-09-29 20:35 | disposition home or self-care (01) ==
PROVIDERS: Physician Assistant; Emergency Provider Preventive Medicine Aerospace Medicine; PCP Internal Medicine
DX: E86.0 Dehydration (principal); E16.2 Hypoglycemia, unspecified; I10 Essential (primary) hypertension; E78.2 Mixed hyperlipidemia; G47.33 Obstructive sleep apnea (adult) (pediatric); F41.9 Anxiety disorder, unspecified; F32.A Depression, unspecified; F17.220 Nicotine dependence, chewing tobacco, uncomplicated; Z79.82 Long term (current) use of aspirin
CPT/HCPCS: 36415; 80053; 81003; 82550; 82948; 83735; 85025; 96360; 96361; 99283; J7030; J7120